=== PATIENT | female | born 1960 | race Caucasian/White ===

== ENCOUNTER 2020-08-05 16:58 | Outpatient (REF) | payer OTHER, SELFPAY | END 2020-08-05 16:59 | disposition home or self-care (01) | LOC: HO.LNP 16:58 | PROVIDERS: Visit Provider Nurse Practitioner Family | DX: Z20.828 Contact with and (suspected) exposure to other viral communicable diseases (principal); J02.8 Acute pharyngitis due to other specified organisms; B97.89 Other viral agents as the cause of diseases classified elsewhere | CPT/HCPCS: U0003 ==

== ENCOUNTER 2020-09-06 08:58 | Outpatient (REF) | payer OTHER, SELFPAY | END 2020-09-06 08:59 | disposition home or self-care (01) | LOC: HO.LAB 08:58 | PROVIDERS: Visit Provider Nurse Practitioner Family | DX: Z20.828 Contact with and (suspected) exposure to other viral communicable diseases (principal) | CPT/HCPCS: U0003 ==

== ENCOUNTER 2020-09-06 09:10 | Outpatient (REF) | payer OTHER, SELFPAY ==
--- NOTE | 2020-09-06 09:40 | XR_ITS ---
EXAMINATION: XR CHEST CLINICAL INFORMATION: Maxillary sinusitis COMPARISON: 05/18/2019 TECHNIQUE: 2 views of the chest were obtained. FINDINGS: No significant abnormality is noted involving the heart, lungs, mediastinum. Redemonstrated is normal variant pectus excavatum.. Mild thoracic spine degeneration. XR/XR chest 2V IMPRESSION: No acute process seen.
== END 2020-09-06 09:11 | disposition home or self-care (01) ==
LOC: HO.HMGCX 09:10
PROVIDERS: PCP Internal Medicine; Visit Provider Nurse Practitioner Family
DX: J01.00 Acute maxillary sinusitis, unspecified (principal); Z20.828 Contact with and (suspected) exposure to other viral communicable diseases
CPT/HCPCS: 71046

== ENCOUNTER 2020-09-13 05:51 | Inpatient (IN) | payer OTHER, SELFPAY ==
[2020-09-13] VITALS (7 sets, daily range): BP systolic 112–130; BP diastolic 72–86; PULSE 91–107; RESP 18–22; TEMP 37.4–37.7; O2SAT 92–97; BMI 25.1
--- NOTE | 2020-09-13 05:59 | ECG_ITS ---
Test Reason : SOB Blood Pressure : / mmHG Vent. Rate : 098 BPM Atrial Rate : 098 BPM P-R Int : 146 ms QRS Dur : 074 ms QT Int : 328 ms P-R-T Axes : 070 042 041 degrees QTc Int : 418 ms Normal sinus rhythm Normal ECG When compared with ECG of 18-MAY-2019 16:55, No significant change was found Referred By: Carlton Ramirez Electronically Signed By:CAROL BEAVERS MD
--- NOTE | 2020-09-13 06:00 | XR_ITS ---
EXAMINATION: CHEST 1 VIEW CLINICAL INFORMATION: No evidence of positive activity. COMPARISON: 09/06/2020. TECHNIQUE: An AP view of the chest is provided. FINDINGS: The cardiac silhouette is not enlarged. The mediastinal and hilar contours are unremarkable. There are neither pleural effusions nor pneumothoraces. There is nonspecific streaky opacification overlying each lung base. The osseous structures are stable. XR/XR chest 1V IMPRESSION: Nonspecific streaky opacification overlying each lung base.
--- NOTE | 2020-09-13 06:14 | ED.SOB ---
HPI - SOB/Dyspnea General Chief Complaint: Weakness Stated Complaint: sob Time Seen by Provider: 09/13/20 05:59 Source: patient Mode of arrival: EMS Limitations: no limitations History of Present Illness HPI Narrative: Patient with no known lung conditions in the past was diagnosed with COVID on 09/06 chest x-ray done which was negative .,on Augmentin and prednisone tablets comes here for worsening or shortness of breath was saturating 88% at room air when EMS reached which improved to 94% on 2 L patient been feeling very weak and tired no loss of taste or smell sensation MD elicited complaint: shortness of breath and cough Onset (ago): day(s) Related Data Home Medications Medication Instructions Recorded Confirmed valacyclovir 1 gram tablet 1,000 mg PO TID 09/06/20 Previous Rx's Medication Instructions Recorded cetirizine 10 mg tablet 10 mg PO DAILY 30 Days #30 tab 08/05/20 amoxicillin 875 mg-potassium 1 tab PO BID 10 Days #20 tab 09/06/20 clavulanate 125 mg tablet prednisone 20 mg tablet 20 mg PO DAILY 9 Days #18 tab MDD 09/06/20 3 for 3days;2 for 3 days;1 3da Allergies Allergy/AdvReac Type Severity Reaction Status Date / Time sulfamethoxazole Allergy Intermediate HIVES Unverified 06/09/20 16:30 [From BACTRIM] trimethoprim [From BACTRIM] Allergy Intermediate HIVES Unverified 06/09/20 16:30 Sulfa (Sulfonamide Allergy Unknown rash Unverified 04/20/20 00:00 Antibiotics) Review of Systems Review of Systems: Constitutional : No Weight loss, No Fever, No Chills ENT/Mouth : No sore throat, No Rhinorrhea Eyes: No Eye Pain, No Swelling Cardiovascular : No Chest Pain, + Dyspnea on Exertion, + Orthopnea, No Edema, No Palpitations, + SOB Respiratory : Dry cough No Sputum Gastrointestinal : no Nausea, No Vomiting, No Diarrhea, No abdominal Pain, No Hematochezia, No Melena Genitourinary : No Dysuria, No Urinary Frequency Musculoskeletal : No joint pain, No Myalgias, No Joint Swelling Skin : No Skin Lesions, No rash Neuro : No Weakness, No Numbness, No Dizziness, No Headache Psych : No Anxiety/Panic, No Depression Heme/Lymph: No Bruising, No Lymphadenopathy Endocrine : No Polyuria, No Polydipsia All other systems reviewed and are negative Yes all other systems are reviewed and are negative PMFSH Past Medical History Medical History Detached retina, left Social History Social History Smoked in Last 30 Days: No Use of substances other than those prescribed or required for medical reasons: No Advance Directives: No Advance Directives Information Provided: No Physical Exam Vital Signs: Vital Signs: Last Vital Signs Temp 99.8 F 09/13/20 06:01 Pulse 97 09/13/20 06:01 Resp 20 09/13/20 06:01 BP 115/72 09/13/20 06:01 Pulse Ox 94 09/13/20 06:01 Body Mass Index 25.1 VITAL SIGNS: Reviewed. GENERAL: Well developed, well nourished, in mild acute distress. HEAD: Normocephalic/atraumatic, EYES: PERRLA No pallor/icterus noted OROPHARYNX: Oral mucosa moist no oral lesions NECK: Supple, no adenopathy LUNGS: Normal breath sounds. No adventitious sounds or accessory muscle use CARDIOVASCULAR: Regular rate and rhythm without noted murmurs, no JVD or lower extremity edema. ABDOMEN: Soft, non-tender, non-distended with normal bowel sounds. No rigidity. No guarding. No palpable masses or hernias noted MUSCULOSKELETAL: No tenderness, deformities, EXTREMITIES: No cyanosis or edema. SKIN: no rashes, ulcerations, jaundice, pallor, or petechiae NEUROLOGIC: Alert and oriented x 3. Strength and sensation to light touch were grossly intact normal speech Course Course Course Narrative: Patient's COVID infection with worsening of symptoms increased weakness and resting hypoxia to 88% at room air chest x-ray showed early changes in lower bases will admit pressure patient for oxygen therapy and supportive treatment MDM - SOB/Dyspnea Lab Data Result diagrams: 09/13/20 06:24 09/13/20 06:24 Labs: Lab Results 09/13/20 Range/Units 06:24 WBC 7.2 (4.8-10.8) X10*3/uL RBC 4.56 (4.20-5.50) X10*6/uL Hgb 14.3 (12.0-16.0) g/dl Hct 42.0 (37-47) % MCV 92.1 (80-98) fL MCH 31.4 (27.0-33.0) pg MCHC 34.0 (31.0-35.0) g/dl RDW 11.9 (11.0-16.0) % Plt Count 213 (160-400) X10*3/uL MPV 9.0 L (9.4-12.3) fL Immature Gran % (Auto) 0.7 H (0.0-0.4) % Neut % (Auto) 71.4 (45-73) % Lymph % (Auto) 22.8 (20-40) % [place] % (Auto) 5.0 (2-11) % Eos % (Auto) 0.0 (0-4) % Baso % (Auto) 0.1 (0-2) % Lymph # (Auto) 1.6 (1.2-4.9) X10*3/uL [place] # (Auto) 0.4 (0.1-1.2) X10*3/uL Eos # (Auto) 0.0 (0.0-0.4) X10*3/uL Baso # (Auto) 0.0 (0.0-0.2) X10*3/uL Abs Immat Gran (auto) 0.05 H (0.00-0.03) X10*3/uL Absolute Neuts (auto) 5.1 (2.0-8.3) X10*3/uL Absolute Nucleated RBC 0.000 (0.0-0.012) X10*3/uL Nucleated RBC % (auto) 0.0 (0.0-0.2) /100WBC Discharge Plan Discharge Prescriptions: No Action cetirizine [Zyrtec] 10 mg tablet 10 mg PO DAILY 30 Days Qty: 30 RF: 0 valacyclovir 1 gram tablet 1,000 mg PO TID RF: 0 amoxicillin-pot clavulanate [Augmentin] 875-125 mg tablet 1 tab PO BID 10 Days Qty: 20 RF: 0 prednisone 20 mg tablet 20 mg PO DAILY MDD 3 for 3days;2 for 3 days;1 3da 9 Days Qty: 18 RF: 0
[2020-09-13 06:37] LABS: MANUAL DIFF FLAG NO
[2020-09-13 06:46] LABS: Basophils Percent Auto 0.1 % (0-2); Hemoglobin 14.3 g/dl (12.0-16.0); Imm Gran Abs Auto 0.05 X10*3/uL (0.00-0.03); Imm Gran Pct Auto 0.7 % (0.0-0.4); Lymphocytes Absolute Auto 1.6 X10*3/uL (1.2-4.9); Lymphocytes Percent Auto 22.8 % (20-40); Mean Corpuscular Hemoglobin 31.4 pg (27.0-33.0); Mean Corpuscular Volume 92.1 fL (80-98); Monocytes Absolute Auto 0.4 X10*3/uL (0.1-1.2); Neutrophils Absolute Auto 5.1 X10*3/uL (2.0-8.3); Neutrophils Percent Auto 71.4 % (45-73); Platelet Count 213 X10*3/uL (160-400); Red Blood Count 4.56 X10*6/uL (4.20-5.50); Red Cell Distribution Width 11.9 % (11.0-16.0); White Blood Count 7.2 X10*3/uL (4.8-10.8)
[2020-09-13] MEDS: dexAMETHasone sod phosphate 4 MG/ML VIAL IVPUSH (06:49)
[2020-09-13] MEDS: cefTRIAXone sodium 1 GM in 0.9 % Sodium Chloride 50 ML IV (06:50)
[2020-09-13 06:59] LABS: D Dimer 236 NG/ML
[2020-09-13 07:03] LABS: Lactic Acid 1.1 mmol/L (0.5-2.0)
--- NOTE | 2020-09-13 07:05 | PC.NURSE ---
Report received from Feliz BOBBY, Pt states she is comfortable at this time, no complaints. Respirations even/unlabored bilaterally. Verbalizes understanding of plan to admit to hospital. Will continue to monitor.
[2020-09-13 07:06] LABS: Anion Gap 10 (12-20); Blood Urea Nitrogen 8 mg/dL (9-16); Carbon Dioxide 31 mmol/L (22-29); Chloride 100 mmol/L (96-108); Creatinine Clr Calc Pharmacy 79.4; Estimated Glomerular Filt Rate > 60; Glucose Random 95 mg/dL (60-115); Lactate Dehydrogenase 237 U/L (122-220); Potassium 4.2 mmol/l (3.3-5.1); Sodium 137 mmol/L (135-145)
[2020-09-13 07:07] LABS: Alanine Aminotransferase 22 U/L (0-31); Alkaline Phosphatase 57 U/L (39-117); Aspartate Amino Transferase 26 U/L (5-31); Bilirubin Direct 0.2 mg/dL (0.0-0.5); Bilirubin Total 0.6 mg/dL (0.0-1.0); Total Protein 6.9 g/dL (6.5-8.0)
[2020-09-13 07:13] LABS: Troponin-I High Sensitivity < 3.5 ng/L (<3.5-17.0)
[2020-09-13 07:27] LABS: Ferritin 480 ng/mL (10-250)
--- NOTE | 2020-09-13 10:06 | PM.IMHP ---
History of Present Illness Date of Service: 09/13/20 <Janee Roper NP - Last Filed: 09/13/20 13:22> Chief Complaint: Low oxygen saturation <Janee Roper NP - Last Filed: 09/13/20 13:22> 59 year old women presenting from home with low oxygen saturation. She tested positive for coronavirus on the and has been treated at home with prednisone and Augmentin. She noted that her oxygen has been going down to the 80's the last day or so. She reported low grade fever, nausea and weakness. She lives with her son who has tested negative for coronavirus and believes that she may have been exposed at work. In the ED, she was given Dexamethasone, doxycycline and Rocephin. Her oxygen saturations have improved with oxygen therapy. <Janee Roper NP - Last Filed: 09/13/20 13:22> Review of Systems Review of Systems: Denies any recent fever chills or decrease in appetite respiratory Dry cough with low oxygen saturation cardiovascular is adjustment of any PND or edema gastrointestinal denies any dysphagia abdominal pain nausea vomiting or diarrhea genitourinary denies any dysuria frequency or hematuria musculoskeletal denies any joint pain or swelling neuropsych denies any weakness or seizures all other systems reviewed are negative <Janee Roper NP - Last Filed: 09/13/20 13:22> [facility], [facility] Medical History: Medical History Detached retina, left <Janee Roper NP - Last Filed: 09/13/20 13:22> Social History: Social History Household Members: None Housing: Apartment Smoking Status: Never smoker Second Hand Smoke Exposure: No service: No Current occupational status: employed <Janee Roper NP - Last Filed: 09/13/20 13:22> Meds Allergies/Adverse reactions: Allergies Allergy/AdvReac Type Severity Reaction Status Date / Time sulfamethoxazole Allergy Intermediate HIVES Verified 09/13/20 18:04 [From BACTRIM] trimethoprim [From BACTRIM] Allergy Intermediate HIVES Verified 09/13/20 20:41 Sulfa (Sulfonamide Allergy Unknown rash Verified 09/13/20 18:05 Antibiotics) <Janee Roper NP - Last Filed: 12/22/20 13:22> Home medications: Home Medications Medication Instructions Recorded Confirmed Type prednisolone acetate 1 drp OPHTHALMIC-LEFT BID 09/13/20 09/13/20 History <Janee Roper NP - Last Filed: 09/13/20 13:22> Physical Exam Vital Signs and Narrative: Vital Signs: Last Vital Signs Temp 99.8 F 09/13/20 06:01 Pulse 96 09/13/20 08:00 Resp 18 09/13/20 08:00 BP 115/72 09/13/20 06:01 Pulse Ox 95 09/13/20 08:00 Body Mass Index 25.1 <Janee Roper NP - Last Filed: 09/13/20 13:22> Appearing in no acute distress head is normocephalic atraumatic eyes pupils are PERRLA sclera is anicteric mouth throat mucous membranes are intact and moist neck is supple no lymphadenopathy, no JVD noted lung normal expansion heart regular rate rhythm positive bowel sounds, abdomen is soft, nontender neuro patient is alert x3, no focal deficits <Janee Roper NP - Last Filed: 09/13/20 13:22> Results Labs CBC and Chem 7: : 09/14/20 05:50 09/14/20 05:50 <Janee Roper NP - Last Filed: 09/13/20 13:22> Labs: Laboratory Results - last 24 hr 09/13/20 09/13/20 09/13/20 06:24 06:24 06:24 MCV 92.1 MCH 31.4 MCHC 34.0 RDW 11.9 Plt Count 213 MPV 9.0 L Immature Gran % (Auto) 0.7 H Neut % (Auto) 71.4 Lymph % (Auto) 22.8 [place] % (Auto) 5.0 Eos % (Auto) 0.0 Baso % (Auto) 0.1 Lymph # (Auto) 1.6 [place] # (Auto) 0.4 Eos # (Auto) 0.0 Baso # (Auto) 0.0 Abs Immat Gran (auto) 0.05 H Absolute Neuts (auto) 5.1 Absolute Nucleated RBC 0.000 Nucleated RBC % (auto) 0.0 D-Dimer 236 Anion Gap 10 L Estim Creat Clear Calc 79.4 Estimated GFR > 60 Random Glucose 95 Lactic Acid Calcium 9.0 Ferritin 480 H Total Bilirubin Direct Bilirubin AST ALT Alkaline Phosphatase Lactate Dehydrogenase 237 H Troponin I High Sens Total Protein Albumin 09/13/20 09/13/20 09/13/20 06:24 06:24 06:24 MCV MCH MCHC RDW Plt Count MPV Immature Gran % (Auto) Neut % (Auto) Lymph % (Auto) [place] % (Auto) Eos % (Auto) Baso % (Auto) Lymph # (Auto) [place] # (Auto) Eos # (Auto) Baso # (Auto) Abs Immat Gran (auto) Absolute Neuts (auto) Absolute Nucleated RBC Nucleated RBC % (auto) D-Dimer Anion Gap Estim Creat Clear Calc Estimated GFR Random Glucose Lactic Acid 1.1 Calcium Ferritin Total Bilirubin 0.6 Direct Bilirubin 0.2 AST 26 ALT 22 Alkaline Phosphatase 57 Lactate Dehydrogenase Troponin I High Sens < 3.5 Total Protein 6.9 Albumin 4.0 <Janee Roper NP - Last Filed: 09/13/20 13:22> Imaging Radiologist's Impressions: Impressions Chest X-Ray 09/13/20 06:00 IMPRESSION: Nonspecific streaky opacification overlying each lung base. <Janee Roper NP - Last Filed: 09/13/20 13:22> Assessment and Plan (1) Hypoxia: Status: Acute <Janee Roper NP - Last Filed: 09/13/20 13:22> 59 year old women admitted with acute respiratory failure secondary to Covid-19. Hypoxia has improved with oxygen. Acute hypoxic respiratory failure. Resolved after oxygen therapy. Continue supplemental oxygen. COVID 19. Continue steroids, Hold off on antibiotics as xray is not showing consolidation. ID consult. DVT prophylaxis with Lovenox. Discussed with Dr. Love Full code. <Janee Roper NP - Last Filed: 09/13/20 13:22>
[2020-09-13] MEDS: 0.9 % Sodium Chloride Flush 3 ML SYRINGE IVFLUSH (20:44)
[2020-09-14] VITALS (8 sets, daily range): BP systolic 102–148; BP diastolic 55–88; PULSE 68–107; RESP 17–20; TEMP 36.3–38.3; O2SAT 90–98
[2020-09-14] MEDS: 0.9 % Sodium Chloride Flush 3 ML SYRINGE IVFLUSH ×3 (00:11→16:38)
[2020-09-14] MEDS: Acetaminophen 325 MG TABLET 650 MG PO ×2 (00:59→23:04)
[2020-09-14 06:33] LABS: MANUAL DIFF FLAG NO
[2020-09-14 06:51] LABS: Basophils Percent Auto 0.1 % (0-2); Hematocrit 41.2 % (37-47); Hemoglobin 13.9 g/dl (12.0-16.0); Imm Gran Abs Auto 0.03 X10*3/uL (0.00-0.03); Imm Gran Pct Auto 0.4 % (0.0-0.4); Lymphocytes Absolute Auto 1.8 X10*3/uL (1.2-4.9); Lymphocytes Percent Auto 22.4 % (20-40); Mean Corpuscular HGB Conc 33.7 g/dl (31.0-35.0); Mean Corpuscular Hemoglobin 30.8 pg (27.0-33.0); Mean Corpuscular Volume 91.4 fL (80-98); Mean Platelet Volume 9.2 fL (9.4-12.3); Monocytes Absolute Auto 0.5 X10*3/uL (0.1-1.2); Monocytes Percent Auto 6.1 % (2-11); Neutrophils Absolute Auto 5.7 X10*3/uL (2.0-8.3); Platelet Count 213 X10*3/uL (160-400); Red Blood Count 4.51 X10*6/uL (4.20-5.50); Red Cell Distribution Width 11.8 % (11.0-16.0)
[2020-09-14] MEDS: predniSONE 20 MG TABLET 40 MG PO (07:47)
[2020-09-14 07:52] LABS: Anion Gap 13 (12-20); Blood Urea Nitrogen 10 mg/dL (9-16); Calcium 8.9 mg/dL (8.4-10.2); Carbon Dioxide 29 mmol/L (22-29); Chloride 98 mmol/L (96-108); Creatinine Clr Calc Pharmacy 77.4; Estimated Glomerular Filt Rate > 60; Glucose Random 90 mg/dL (60-115); Sodium 135 mmol/L (135-145)
[2020-09-14 08:08] LABS: Potassium 5.3 mmol/l (3.3-5.1)
--- NOTE | 2020-09-14 10:56 | HO.PM.IMPN ---
Subjective Subjective Date of Service: 09/14/20 Interval History: Seen in f/u for covid related hypoxoia ROS: feels better, no fever Physical Exam Vital Signs: Vital Signs: Last Vital Signs Temp 97.9 F 09/14/20 08:00 Pulse 99 09/14/20 08:00 Resp 18 09/14/20 08:00 BP 107/58 L 09/14/20 08:00 Pulse Ox 93 09/14/20 08:00 Body Mass Index 25.1 General: AO X 3, no acute distress Resp: normal resp effort CVS: S1,S2,RRR GI: +BS, NT, no distention Skin: No rash Neuro: motor grossly intact Psych: appropriate affect Objective Data Current Medications Generic Name Dose Route Start Last Admin Trade Name Freq PRN Reason Stop Dose Admin Acetaminophen 650 mg 09/13/20 16:56 09/14/20 00:59 Acetaminophen 325 Mg Tablet PO 650 mg Q6H PRN Administration Pain, Mild (Pain Scale 1-3) Ondansetron HCl 4 mg 09/13/20 16:56 Ondansetron Hcl 4 Mg/2 Ml Vial IVPUSH Q8H PRN Nausea and Vomiting Pharmacy Consult 1 each 09/13/20 06:51 Consult Rx Perform Med Rec MISCELLANE ONCE PRN Consult order Prednisone 40 mg 09/14/20 09:00 09/14/20 07:47 Prednisone 20 Mg Tablet PO 40 mg DAILY KATIE Administration Sodium Chloride 3 ml 09/13/20 16:56 09/14/20 07:49 0.9 % Sodium Chloride Flush 3 Ml Syringe IVFLUSH 3 ml QSHIFT KATIE Administration Labs CBC & Chem 7: 09/14/20 05:50 09/14/20 05:50 Microbiology Microbiology Results: Microbiology 09/13/20 06:29 Blood - Venous Blood Culture - Preliminary No growth after 24 hours. 09/13/20 06:24 Blood - Venous Blood Culture - Preliminary No growth after 24 hours. Assessment and Plan (1) Hypoxia: Status: Acute Assessment and Plan: 59 year old women admitted with acute respiratory failure secondary to Covid-19. Hypoxia has improved with oxygen. Covid hypoxia--improved with O2 continue Dexameth -no indication for plasma or remdesevir or antibiotics -wean off O2 Home if O2 is good on room air
--- NOTE | 2020-09-14 11:04 | PM.EVENT ---
Event Note Date of Service: 09/13/20 Event Note: Addendum to H and P by Mid-level Provider I saw and examined the patient and participated in the mosley portion of the E/M service. I agree with the history and exam as documented by CONSTRUCTION TECH. Patient likely has covid 19 with mild hypoxia, Will admit for oxygen, steroid. Otherwise, I agree with assessment and plan as outlined in the H and P.
--- NOTE | 2020-09-14 11:07 | MHC.CM.PN ---
CM spoke with patient by phone r/t COVID + who reports she is independent and her son lives with her. States she has a HCP/son Dieter [phone], Brain [phone], copy requested. Discussed discharge plan, home no services. Son will provide transportation. CM will continue to follow patient for discharge needs.
--- NOTE | 2020-09-14 12:53 | W.PM.IDCN ---
History of Present Illness Data of Consult Service Date: 09/14/20 Requesting physician: Rasheed Love Primary Care Provider: Unknown Physician HPI Reason for consult: COVID She presents to hospital with worsening subjective shortness of breath She was diagnosed with COVID after 2 days of symptoms on 09/06 She now is on room air and was on 2 liters earlier Review of Systems Review of Systems: Yes all other systems are reviewed and are negative PMFSH Past Medical History Medical History Detached retina, left Social History Social History Household Members: None Housing: Apartment Do you presently have visiting nurse or other home services: No Smoking Status: Never smoker Smoked in Last 30 Days: No Second Hand Smoke Exposure: No Use of substances other than those prescribed or required for medical reasons: No Currently Displaying Signs/Symptoms of Drug Intoxication Withdrawal: No Have you been hit, kicked, punched, or otherwise hurt by someone within the past year? If so, by whom?: No Do you feel safe in your current relationship?: No Is there a partner from a previous relationship who is making you feel unsafe now?: No Are you made to feel afraid or neglected: No Advance Directives: No Advance Directives Information Provided: No Advance Directives on File: No Do you have thoughts of harming others: None Do you have a plan to hurt others: No Plan Recently lost weight without trying: No service: No Current occupational status: employed Meds Allergies Allergy/AdvReac Type Severity Reaction Status Date / Time sulfamethoxazole Allergy Intermediate HIVES Verified 09/13/20 18:04 [From BACTRIM] trimethoprim [From BACTRIM] Allergy Intermediate HIVES Verified 09/13/20 20:41 Sulfa (Sulfonamide Allergy Unknown rash Verified 09/13/20 18:05 Antibiotics) Home Medications Medication Instructions Recorded Confirmed Type prednisolone acetate 1 drp OPHTHALMIC-LEFT BID 09/13/20 09/13/20 History Physical Exam Vital Signs: Vital Signs: Last Vital Signs Temp 97.3 F 09/14/20 11:14 Pulse 107 H 09/14/20 11:14 Resp 18 09/14/20 11:14 BP 120/88 09/14/20 11:14 Pulse Ox 92 09/14/20 11:14 Body Mass Index 25.1 Const: General: cooperative HENMT: Head: Yes normal to inspection Resp: Effort & Inspection: normal respiratory effort Cardio: Rate: regular rate Rhythm: regular rhythm GI: Inspection: Yes normal to inspection Skin: General skin exam: no rashes or lesions noted Extrem: General: Yes normal to inspection Assessment and Plan (1) COVID-19: Problem details: She is 10 days minimum symptoms She is doing better Status: Acute No Remdesivir or Dexamethasone as over 10 days and room air No antibiotics Results Labs CBC & Chem 7: 09/14/20 05:50 09/14/20 05:50 Labs: Short CBC 09/14/20 Range/Units 05:50 WBC 8.0 (4.8-10.8) X10*3/uL Hgb 13.9 (12.0-16.0) g/dl Hct 41.2 (37-47) % Plt Count 213 (160-400) X10*3/uL BMP 09/14/20 05:50 Sodium 135 Potassium 5.3 H D Chloride 98 Carbon Dioxide 29 BUN 10 Creatinine 0.78 Calcium 8.9 Microbiology Microbiology Results: Microbiology 09/13/20 06:29 Blood - Venous Blood Culture - Preliminary No growth after 24 hours. 09/13/20 06:24 Blood - Venous Blood Culture - Preliminary No growth after 24 hours.
[2020-09-15] VITALS (7 sets, daily range): BP systolic 102–138; BP diastolic 64–70; PULSE 89–104; RESP 18–20; TEMP 36.6–37.4; O2SAT 88–93
[2020-09-15] MEDS: 0.9 % Sodium Chloride Flush 3 ML SYRINGE IVFLUSH ×3 (00:30→15:36)
[2020-09-15] MEDS: predniSONE 20 MG TABLET 40 MG PO (07:43)
--- NOTE | 2020-09-15 09:39 | P.CDIC_ITS ---
CDI Concurrent Query Service Date: 09/15/20 Documentation Clarification: Please clarify if you are treating a proba ble/suspected/likely or confirmed: LABS: Hyperkalemia Please specify if known Provider Response: Other Other Diagnosis: hyperkalemia PLEASE DO NOT DELETE/MODIFY EXISTING CONTENT Additional information is needed in order to code to the highest accuracy and appropriate Severity of Illness (SOI). Please clarify the information noted below in your progress notes and discharge summary. Risk Factors/Clinical Indicators/Treatments LAB FINDING: potassium 5.3 H CDS: Rhoda Salguero CCS, CDIS Contact Number: [phone] Please Review the information above and exercise your independent professional judgment in responding to the query. If you concur, pleas document in the PROGRESS NOTES and DISCHARGE SUMMARY. If you do not agree with the query, please document in the query above. THIS QUERY IS PART OF THE PERMANENT MEDICAL RECORD
--- NOTE | 2020-09-15 12:12 | MHC.CM.PN ---
Patient will be discharged home today no services. Judson Garcias [phone] will provide transport.
[2020-09-15] MEDS: Multivitamin TABLET 1 TAB PO (13:09)
[2020-09-15] MEDS: Throat Lozenge, Medicated LOZENGE 1 LOZENGE MUCOUS MEM (13:09)
--- NOTE | 2020-09-15 13:12 | PM.DS ---
DS: Providers Provider Date of admission: 09/13/20 10:01 Primary care physician: Unknown Physician Consults: 09/13/20 16:56 Consult to Infectious Diseases Routine Consulting Provider: Yanely Asher Reason for consultation: hypoxia, covid Has provider been notified: No DS: Diagnosis Discharge Diagnosis (1) COVID-19: Status: Acute Problem details: She is 10 days minimum symptoms She is doing better DS: Medications Discharge Medications Home Medications: Home Medications Medication Instructions Recorded Confirmed prednisolone acetate 1 drp OPHTHALMIC-LEFT BID 09/13/20 09/13/20 Previous Rx's Medication Instructions Recorded amoxicillin 875 mg-potassium 1 tab PO BID 10 Days #20 tab 09/06/20 clavulanate 125 mg tablet prednisone 40 mg PO DAILY #10 tab 09/15/20 DS: Summary Time Spent with Patient Time attestation: Total time spent providing and/or coordinating discharge services: Physical Exam Vital Signs: Vital Signs: Last Vital Signs Temp 99 F 09/15/20 07:38 Pulse 96 09/15/20 07:38 Resp 19 09/15/20 07:38 BP 112/67 09/15/20 07:38 Pulse Ox 93 09/15/20 07:38 Body Mass Index 25.1 DS: Data Data Completed and Pending Labs on day of discharge: 09/13/20 05:59 ECG 12 lead EKG Stat EKG Documentation DIRECTED 09/13/20 06:00 XR chest 1V Stat 09/13/20 06:01 Doxycycline Hyclate [Vibramycin] 100 mg PO ONCE ONE cefTRIAXone sodium [Rocephin] 1 gm 0.9 % Sodium Chloride [Ns] 50 ml IV ONCE dexAMETHasone sod phosphate [Decadron] 4 mg IVPUSH ONCE ONE 09/13/20 06:24 Basic Metabolic Panel Stat Complete Blood Count Auto Diff Stat D Dimer Stat Ferritin Stat Lactate Dehydrogenase Stat Lactic Acid Stat Liver Panel Stat Troponin-I High Sensitivity Stat 09/13/20 06:40 cefTRIAXone sodium [Rocephin] 1 gm .ROUTE .STK-MED ONE 09/13/20 09:59 Transfer Order Routine 09/13/20 12:31 ED Diet NOW 09/14/20 05:50 Basic Metabolic Panel DAILY@0600 Complete Blood Count Auto Diff DAILY@0600 Laboratory Last Values WBC 8.0 X10*3/uL (4.8-10.8) 09/14/20 05:50 RBC 4.51 X10*6/uL (4.20-5.50) 09/14/20 05:50 Hgb 13.9 g/dl (12.0-16.0) 09/14/20 05:50 Hct 41.2 % (37-47) 09/14/20 05:50 MCV 91.4 fL (80-98) 09/14/20 05:50 MCH 30.8 pg (27.0-33.0) 09/14/20 05:50 MCHC 33.7 g/dl (31.0-35.0) 09/14/20 05:50 RDW 11.8 % (11.0-16.0) 09/14/20 05:50 Plt Count 213 X10*3/uL (160-400) 09/14/20 05:50 MPV 9.2 fL (9.4-12.3) L 09/14/20 05:50 Immature Gran % (Auto) 0.4 % (0.0-0.4) 09/14/20 05:50 Neut % (Auto) 71.0 % (45-73) 09/14/20 05:50 Lymph % (Auto) 22.4 % (20-40) 09/14/20 05:50 [place] % (Auto) 6.1 % (2-11) 09/14/20 05:50 Eos % (Auto) 0.0 % (0-4) 09/14/20 05:50 Baso % (Auto) 0.1 % (0-2) 09/14/20 05:50 Lymph # (Auto) 1.8 X10*3/uL (1.2-4.9) 09/14/20 05:50 [place] # (Auto) 0.5 X10*3/uL (0.1-1.2) 09/14/20 05:50 Eos # (Auto) 0.0 X10*3/uL (0.0-0.4) 09/14/20 05:50 Baso # (Auto) 0.0 X10*3/uL (0.0-0.2) 09/14/20 05:50 Abs Immat Gran (auto) 0.03 X10*3/uL (0.00-0.03) 09/14/20 05:50 Absolute Neuts (auto) 5.7 X10*3/uL (2.0-8.3) 09/14/20 05:50 Absolute Nucleated RBC 0.000 X10*3/uL (0.0-0.012) 09/14/20 05:50 Nucleated RBC % (auto) 0.0 /100WBC (0.0-0.2) 09/14/20 05:50 D-Dimer 236 NG/ML 09/13/20 06:24 Sodium 135 mmol/L (135-145) 09/14/20 05:50 Potassium 5.3 mmol/l (3.3-5.1) H D 09/14/20 05:50 Chloride 98 mmol/L (96-108) 09/14/20 05:50 Carbon Dioxide 29 mmol/L (22-29) 09/14/20 05:50 Anion Gap 13 (-20) 09/14/20 05:50 BUN 10 mg/dL (9-16) 09/14/20 05:50 Creatinine 0.78 mg/dL (0.5-1.4) 09/14/20 05:50 Estim Creat Clear Calc 77.4 09/14/20 05:50 Estimated GFR > 60 09/14/20 05:50 Random Glucose 90 mg/dL (60-115) 09/14/20 05:50 Lactic Acid 1.1 mmol/L (0.5-2.0) 09/13/20 06:24 Calcium 8.9 mg/dL (8.4-10.2) 09/14/20 05:50 Ferritin 480 ng/mL (10-250) H 09/13/20 06:24 Total Bilirubin 0.6 mg/dL (0.0-1.0) 09/13/20 06:24 Direct Bilirubin 0.2 mg/dL (0.0-0.5) 09/13/20 06:24 AST 26 U/L (5-31) 09/13/20 06:24 ALT 22 U/L (0-31) 09/13/20 06:24 Alkaline Phosphatase 57 U/L (39-117) 09/13/20 06:24 Lactate Dehydrogenase 237 U/L (122-220) H 09/13/20 06:24 Troponin I High Sens < 3.5 ng/L (<3.5-17.0) 09/13/20 06:24 Total Protein 6.9 g/dL (6.5-8.0) 09/13/20 06:24 Albumin 4.0 g/dL (3.5-5.0) 09/13/20 06:24 Preliminary micro results at discharge 09/13/20 06:29 Blood Culture - Preliminary Blood - Venous No growth after 48 hours. 09/13/20 06:24 Blood Culture - Preliminary Blood - Venous No growth after 48 hours. Discharge Plan Discharge Anticipated Discharge Date/Time: 09/15/20 11:51 Patient Disposition: Home, Self-Care Referrals: Physician,Unknown [Primary Care Provider] - Discharge Medications: New prednisone 20 mg Tablet 40 mg PO DAILY Qty: 10 RF: 0 Continued prednisolone acetate 1 % drops,suspension 1 drp ophthalmic-Left BID RF: 0 amoxicillin-pot clavulanate [Augmentin] 875-125 mg tablet 1 tab PO BID 10 Days Qty: 20 RF: 0 Discontinued prednisone 20 mg tablet 20 mg PO DAILY MDD 3 for 3days;2 for 3 days;1 3da 9 Days Qty: 18 RF: 0 Discharge Orders: Discharge Order (Routine); Ordered 09/15/20 Ordered By: Jimbo Meyer Diet: advance to usual diet Activity on Discharge: As tolerated Visit Report Forms: Patient Portal Discharge page Care Plan Goals: treat covid Health Concerns: covid Plan of Treatment: see above
[2020-09-15] MEDS: Acetaminophen 325 MG TABLET 650 MG PO (15:37)
--- NOTE | 2020-09-15 15:42 | HO.PM.IMPN ---
Subjective Subjective Date of Service: 09/15/20 Interval History: patient seen and examined at bedside patient is reporting weakness and cough ROS: feels better, no fever Review of Systems Denies any recent fever chills or decrease in appetite respiratory Dry cough with low oxygen saturation cardiovascular is adjustment of any PND or edema gastrointestinal denies any dysphagia abdominal pain nausea vomiting or diarrhea genitourinary denies any dysuria frequency or hematuria musculoskeletal denies any joint pain or swelling neuropsych denies any weakness or seizures all other systems reviewed are negative Physical Exam Vital Signs: Vital Signs: Last Vital Signs Temp 99.3 F 09/15/20 15:05 Pulse 89 09/15/20 15:05 Resp 20 09/15/20 15:05 BP 102/68 09/15/20 15:05 Pulse Ox 88 L 09/15/20 15:05 Body Mass Index 25.1 Const: General: cooperative HENMT: Head: Yes normal to inspection Resp: Effort & Inspection: normal respiratory effort Cardio: Rate: regular rate Rhythm: regular rhythm GI: Inspection: Yes normal to inspection Skin: General skin exam: no rashes or lesions noted Extrem: General: Yes normal to inspection Objective Data Current Medications Generic Name Dose Route Start Last Admin Trade Name Freq PRN Reason Stop Dose Admin Acetaminophen 650 mg 09/13/20 16:56 09/15/20 15:37 Acetaminophen 325 Mg Tablet PO 650 mg Q6H PRN Administration Pain, Mild (Pain Scale 1-3) Benzocaine 1 lozenge 09/15/20 12:23 09/15/20 13:09 Throat Lozenge, Medicated Lozenge MUCOUS MEM 1 lozenge Q2H PRN Administration Sore Throat Multivitamins/Vitamin C 1 tab 09/15/20 12:30 09/15/20 13:09 Multivitamin Tablet PO 1 tab DAILY KATIE Administration Ondansetron HCl 4 mg 09/13/20 16:56 Ondansetron Hcl 4 Mg/2 Ml Vial IVPUSH Q8H PRN Nausea and Vomiting Pharmacy Consult 1 each 09/13/20 06:51 Consult Rx Perform Med Rec MISCELLANE ONCE PRN Consult order Prednisone 40 mg 09/14/20 09:00 09/15/20 07:43 Prednisone 20 Mg Tablet PO 40 mg DAILY KATIE Administration Sodium Chloride 3 ml 09/13/20 16:56 09/15/20 15:36 0.9 % Sodium Chloride Flush 3 Ml Syringe IVFLUSH 3 ml QSHIFT KATIE Administration Labs CBC & Chem 7: 09/14/20 05:50 09/14/20 05:50 Microbiology Microbiology Results: Microbiology 09/13/20 06:29 Blood - Venous Blood Culture - Preliminary No growth after 48 hours. 09/13/20 06:24 Blood - Venous Blood Culture - Preliminary No growth after 48 hours. Assessment and Plan (1) COVID-19: Status: Acute Assessment and Plan: 59 year old women admitted with acute respiratory failure secondary to Covid-19. Hypoxia has improved with oxygen. Covid pneumonia and acute hypoxic respiratory failure continue Dexameth -no indication for plasma or remdesevir or antibiotics -wean off O2 supportive management patient desaturating while walking DVT prophylaxis Lovenox
[2020-09-15] MEDS: Enoxaparin Sodium 40 MG/0.4 ML SYRINGE SUBCUT (15:50)
[2020-09-16] VITALS: BP 121/70; PULSE 84; RESP 16; TEMP 37.2; O2SAT 96
[2020-09-16] MEDS: 0.9 % Sodium Chloride Flush 3 ML SYRINGE IVFLUSH ×3 (00:01→15:59)
[2020-09-16 04:00] VITALS: BP 114/62; PULSE 88; RESP 18; TEMP 37.1; O2SAT 91
[2020-09-16] MEDS: predniSONE 20 MG TABLET 40 MG PO (07:27)
[2020-09-16] MEDS: Multivitamin TABLET 1 TAB PO (07:27)
[2020-09-16 08:00] VITALS: BP 112/65; PULSE 98; RESP 18; TEMP 37.1; O2SAT 92
[2020-09-16 12:00] VITALS: BP 106/75; PULSE 96; RESP 20; TEMP 36.8; O2SAT 92
--- NOTE | 2020-09-16 14:02 | MHC.CM.PN ---
[facility] NO SERVICES SON MARY WILL TRANSPORT.
--- NOTE | 2020-09-16 14:55 | HO.PM.IMPN ---
Subjective Subjective Date of Service: 09/16/20 Interval History: patient seen and examined at bedside patient is reporting weakness and coughand dyspnea Review of Systems Denies any recent fever chills or decrease in appetite respiratory Dry cough with low oxygen saturation cardiovascular is adjustment of any PND or edema gastrointestinal denies any dysphagia abdominal pain nausea vomiting or diarrhea genitourinary denies any dysuria frequency or hematuria musculoskeletal denies any joint pain or swelling neuropsych denies any weakness or seizures all other systems reviewed are negative Physical Exam Vital Signs: Vital Signs: Last Vital Signs Temp 98.2 F 09/16/20 12:00 Pulse 96 09/16/20 12:00 Resp 20 09/16/20 12:00 BP 106/75 09/16/20 12:00 Pulse Ox 92 09/16/20 12:00 Body Mass Index 25.1 Const: General: cooperative HENMT: Head: Yes normal to inspection Resp: Effort & Inspection: normal respiratory effort Cardio: Rate: regular rate Rhythm: regular rhythm GI: Inspection: Yes normal to inspection Skin: General skin exam: no rashes or lesions noted Extrem: General: Yes normal to inspection Objective Data Current Medications Generic Name Dose Route Start Last Admin Trade Name Freq PRN Reason Stop Dose Admin Acetaminophen 650 mg 09/13/20 16:56 09/15/20 15:37 Acetaminophen 325 Mg Tablet PO 650 mg Q6H PRN Administration Pain, Mild (Pain Scale 1-3) Ascorbic Acid 500 mg 09/16/20 21:00 Ascorbic Acid 500 Mg Tablet PO BID KATIE Benzocaine 1 lozenge 09/15/20 12:23 09/15/20 13:09 Throat Lozenge, Medicated Lozenge MUCOUS MEM 1 lozenge Q2H PRN Administration Sore Throat Enoxaparin Sodium 40 mg 09/15/20 16:00 09/15/20 15:50 Enoxaparin Sodium 40 Mg/0.4 Ml Syringe SUBCUT 40 mg Q24H KATIE Administration Multivitamins/Vitamin C 1 tab 09/15/20 12:30 09/16/20 07:27 Multivitamin Tablet PO 1 tab DAILY KATIE Administration Ondansetron HCl 4 mg 09/13/20 16:56 Ondansetron Hcl 4 Mg/2 Ml Vial IVPUSH Q8H PRN Nausea and Vomiting Pharmacy Consult 1 each 09/13/20 06:51 Consult Rx Perform Med Rec MISCELLANE ONCE PRN Consult order Prednisone 40 mg 09/14/20 09:00 09/16/20 07:27 Prednisone 20 Mg Tablet PO 40 mg DAILY KATIE Administration Sodium Chloride 3 ml 09/13/20 16:56 09/16/20 07:28 0.9 % Sodium Chloride Flush 3 Ml Syringe IVFLUSH 3 ml QSHIFT KATIE Administration Labs CBC & Chem 7: 09/14/20 05:50 09/14/20 05:50 Microbiology Microbiology Results: Microbiology 09/13/20 06:29 Blood - Venous Blood Culture - Preliminary No growth after 48 hours. 09/13/20 06:24 Blood - Venous Blood Culture - Preliminary No growth after 48 hours. Assessment and Plan (1) COVID-19: Status: Acute Assessment and Plan: 59 year old women admitted with acute respiratory failure secondary to Covid-19. . Covid pneumonia and acute hypoxic respiratory failure continue Dexameth -no indication for plasma or remdesevir or antibiotics continue supportive management patient was initially weaned off from oxygen, again became hypoxic and placed on oxygen patient will likely need home oxygen patient still reporting significant dyspnea while walking does not feel ready to be discharged today DVT prophylaxis Lovenox possible discharge in 1-2 days
[2020-09-16] MEDS: Enoxaparin Sodium 40 MG/0.4 ML SYRINGE SUBCUT (15:59)
[2020-09-16 16:00] VITALS: BP 114/64; PULSE 97; RESP 18; TEMP 37; O2SAT 90
[2020-09-16 21:08] VITALS: BP 112/69; PULSE 101; RESP 15; TEMP 36.9; O2SAT 92
[2020-09-16] MEDS: Ascorbic Acid 500 MG TABLET PO (21:50)
[2020-09-17] VITALS: BP 109/68; PULSE 84; RESP 18; TEMP 36.9; O2SAT 92
[2020-09-17] MEDS: 0.9 % Sodium Chloride Flush 3 ML SYRINGE IVFLUSH ×4 (00:40→21:10)
[2020-09-17 04:00] VITALS: BP 104/66; PULSE 95; RESP 18; TEMP 37.1; O2SAT 90
[2020-09-17 08:00] VITALS: BP 100/64; PULSE 98; RESP 18; TEMP 36.8; O2SAT 95
[2020-09-17] MEDS: predniSONE 20 MG TABLET 40 MG PO (08:07)
[2020-09-17] MEDS: Multivitamin TABLET 1 TAB PO (08:07)
[2020-09-17] MEDS: Ascorbic Acid 500 MG TABLET PO ×2 (08:07→20:59)
[2020-09-17 12:00] VITALS: BP 108/67; PULSE 93; RESP 18; TEMP 37.4; O2SAT 93
[2020-09-17] MEDS: Enoxaparin Sodium 40 MG/0.4 ML SYRINGE SUBCUT (15:20)
[2020-09-17 15:44] VITALS: BP 124/74; PULSE 88; RESP 20; TEMP 36.8; O2SAT 89
--- NOTE | 2020-09-17 18:13 | HO.PM.IMPN ---
Subjective Subjective Date of Service: 09/17/20 Interval History: Seen in f/u for covid related hypoxoia. off O2 and doing fine ROS: feels better, no fever or Sob Physical Exam Vital Signs: Vital Signs: Last Vital Signs Temp 98.2 F 09/17/20 15:44 Pulse 88 09/17/20 15:44 Resp 20 09/17/20 15:44 BP 124/74 09/17/20 15:44 Pulse Ox 89 L 09/17/20 15:44 Body Mass Index 25.1 Const: Other: General: AO X 3, no acute distress HEENT-norma ear exam with otoscope is normal Resp: CTA bilateral CVS: S1,S2,RRR GI: +BS, NT, no distention Skin: No rash Neuro: motor grossly intact Psych: appropriate affect Objective Data Current Medications Generic Name Dose Route Start Last Admin Trade Name Freq PRN Reason Stop Dose Admin Acetaminophen 650 mg 09/13/20 16:56 09/15/20 15:37 Acetaminophen 325 Mg Tablet PO 650 mg Q6H PRN Administration Pain, Mild (Pain Scale 1-3) Ascorbic Acid 500 mg 09/16/20 21:00 09/17/20 08:07 Ascorbic Acid 500 Mg Tablet PO 500 mg BID KATIE Administration Benzocaine 1 lozenge 09/15/20 12:23 09/15/20 13:09 Throat Lozenge, Medicated Lozenge MUCOUS MEM 1 lozenge Q2H PRN Administration Sore Throat Enoxaparin Sodium 40 mg 09/15/20 16:00 09/17/20 15:20 Enoxaparin Sodium 40 Mg/0.4 Ml Syringe SUBCUT 40 mg Q24H KATIE Administration Multivitamins/Vitamin C 1 tab 09/15/20 12:30 09/17/20 08:07 Multivitamin Tablet PO 1 tab DAILY KATIE Administration Ondansetron HCl 4 mg 09/13/20 16:56 Ondansetron Hcl 4 Mg/2 Ml Vial IVPUSH Q8H PRN Nausea and Vomiting Pharmacy Consult 1 each 09/13/20 06:51 Consult Rx Perform Med Rec MISCELLANE ONCE PRN Consult order Prednisone 40 mg 09/14/20 09:00 09/17/20 08:07 Prednisone 20 Mg Tablet PO 40 mg DAILY KATIE Administration Sodium Chloride 3 ml 09/13/20 16:56 09/17/20 15:36 0.9 % Sodium Chloride Flush 3 Ml Syringe IVFLUSH 3 ml QSHIFT KATIE Administration Labs CBC & Chem 7: 09/14/20 05:50 09/14/20 05:50 Microbiology Microbiology Results: Microbiology 09/13/20 06:29 Blood - Venous Blood Culture - Preliminary No growth after 48 hours. 09/13/20 06:24 Blood - Venous Blood Culture - Preliminary No growth after 48 hours. Assessment and Plan (1) Hypoxia: Status: Acute Assessment and Plan: 59 year old women admitted with acute respiratory failure secondary to Covid-19. Hypoxia has improved with oxygen. Covid hypoxia has resolved. continue Dexameth for 10 days -no indication for plasma or remdesevir or antibiotics -wean off O2 Home if O2 is good on room air overnight.
[2020-09-17 19:27] VITALS: BP 100/65; PULSE 87; RESP 20; TEMP 37.3; O2SAT 92
[2020-09-18 00:19] VITALS: BP 117/65; PULSE 91; RESP 16; TEMP 36.9; O2SAT 92
[2020-09-18 03:31] VITALS: BP 97/59; PULSE 96; RESP 14; TEMP 37; O2SAT 92
[2020-09-18 03:37] VITALS: BP 127/82; PULSE 68; RESP 14; TEMP 36.6; TEMP 37; O2SAT 98
[2020-09-18] MEDS: Ascorbic Acid 500 MG TABLET PO (07:44)
[2020-09-18] MEDS: 0.9 % Sodium Chloride Flush 3 ML SYRINGE IVFLUSH (07:44)
[2020-09-18] MEDS: Multivitamin TABLET 1 TAB PO (07:44)
[2020-09-18] MEDS: predniSONE 20 MG TABLET 40 MG PO (07:44)
[2020-09-18 08:00] VITALS: BP 103/58; BP 95/57; PULSE 100; RESP 18; TEMP 37; O2SAT 93
[2020-09-18 12:34] VITALS: BP 107/62; PULSE 96; RESP 20; TEMP 36.9; O2SAT 93
--- NOTE | 2020-09-18 13:26 | PM.DS ---
DS: Providers Provider Date of admission: 09/13/20 10:01 Date of discharge 09/18/20 Primary care physician: Unknown Physician Consults: 09/13/20 16:56 Consult to Infectious Diseases Routine Consulting Provider: Yanely Asher Reason for consultation: hypoxia, covid Has provider been notified: No DS: Diagnosis Discharge Diagnosis (1) Hypoxia: Status: Acute DS: Medications Discharge Medications Home Medications: Home Medications Medication Instructions Recorded Confirmed prednisolone acetate 1 drp OPHTHALMIC-LEFT BID 09/13/20 09/13/20 Previous Rx's Medication Instructions Recorded prednisone 40 mg PO DAILY #10 tab 09/18/20 DS: Summary Hospital Course Hospital Course: Patient was diagnosed with covid 19 and was being treated at home with Prednisone and Augmentin however got worse with Oxygen saturation dropping into 80s and came to hospital and was admitted due to acute hypoxic respiratory failure and was given Steroid and oxygen and over the course of hospitalization has significantly iproved with O2 now 93% room air and symptomatically feels better and will treated for 5 more days with steroid. There is no indication to continue Augmentin as now not required antibitics in the hospital. To finish self isolation at home and follow up with PCP in a week. Time Spent with Patient Time attestation: Total time spent providing and/or coordinating discharge services: Physical Exam Vital Signs: Vital Signs: Last Vital Signs Temp 98.5 F 09/18/20 12:34 Pulse 96 09/18/20 12:34 Resp 20 09/18/20 12:34 BP 107/62 09/18/20 12:34 Pulse Ox 93 09/18/20 12:34 Body Mass Index 25.1 General: AO X 3, no acute distress Resp: CTA bilateral CVS: S1,S2,RRR GI: +BS, NT, no distention Skin: No rash Neuro: motor grossly intact Psych: appropriate affect DS: Data Data Completed and Pending Labs on day of discharge: 09/13/20 05:59 ECG 12 lead EKG Stat EKG Documentation DIRECTED 09/13/20 06:00 XR chest 1V Stat 09/13/20 06:01 Doxycycline Hyclate [Vibramycin] 100 mg PO ONCE ONE cefTRIAXone sodium [Rocephin] 1 gm 0.9 % Sodium Chloride [Ns] 50 ml IV ONCE dexAMETHasone sod phosphate [Decadron] 4 mg IVPUSH ONCE ONE 09/13/20 06:24 Basic Metabolic Panel Stat Complete Blood Count Auto Diff Stat D Dimer Stat Ferritin Stat Lactate Dehydrogenase Stat Lactic Acid Stat Liver Panel Stat Troponin-I High Sensitivity Stat 09/13/20 06:29 Blood Culture X2 [BC] Stat 09/13/20 06:40 cefTRIAXone sodium [Rocephin] 1 gm .ROUTE .STK-MED ONE 09/13/20 09:59 Transfer Order Routine 09/13/20 12:31 ED Diet NOW 09/14/20 05:50 Basic Metabolic Panel DAILY@0600 Complete Blood Count Auto Diff DAILY@0600 Laboratory Last Values WBC 8.0 X10*3/uL (4.8-10.8) 09/14/20 05:50 RBC 4.51 X10*6/uL (4.20-5.50) 09/14/20 05:50 Hgb 13.9 g/dl (12.0-16.0) 09/14/20 05:50 Hct 41.2 % (37-47) 09/14/20 05:50 MCV 91.4 fL (80-98) 09/14/20 05:50 MCH 30.8 pg (27.0-33.0) 09/14/20 05:50 MCHC 33.7 g/dl (31.0-35.0) 09/14/20 05:50 RDW 11.8 % (11.0-16.0) 09/14/20 05:50 Plt Count 213 X10*3/uL (160-400) 09/14/20 05:50 MPV 9.2 fL (9.4-12.3) L 09/14/20 05:50 Immature Gran % (Auto) 0.4 % (0.0-0.4) 09/14/20 05:50 Neut % (Auto) 71.0 % (45-73) 09/14/20 05:50 Lymph % (Auto) 22.4 % (20-40) 09/14/20 05:50 [place] % (Auto) 6.1 % (2-11) 09/14/20 05:50 Eos % (Auto) 0.0 % (0-4) 09/14/20 05:50 Baso % (Auto) 0.1 % (0-2) 09/14/20 05:50 Lymph # (Auto) 1.8 X10*3/uL (1.2-4.9) 09/14/20 05:50 [place] # (Auto) 0.5 X10*3/uL (0.1-1.2) 09/14/20 05:50 Eos # (Auto) 0.0 X10*3/uL (0.0-0.4) 09/14/20 05:50 Baso # (Auto) 0.0 X10*3/uL (0.0-0.2) 09/14/20 05:50 Abs Immat Gran (auto) 0.03 X10*3/uL (0.00-0.03) 09/14/20 05:50 Absolute Neuts (auto) 5.7 X10*3/uL (2.0-8.3) 09/14/20 05:50 Absolute Nucleated RBC 0.000 X10*3/uL (0.0-0.012) 09/14/20 05:50 Nucleated RBC % (auto) 0.0 /100WBC (0.0-0.2) 09/14/20 05:50 D-Dimer 236 NG/ML 09/13/20 06:24 Sodium 135 mmol/L (135-145) 09/14/20 05:50 Potassium 5.3 mmol/l (3.3-5.1) H D 09/14/20 05:50 Chloride 98 mmol/L (96-108) 09/14/20 05:50 Carbon Dioxide 29 mmol/L (22-29) 09/14/20 05:50 Anion Gap 13 (-20) 09/14/20 05:50 BUN 10 mg/dL (9-16) 09/14/20 05:50 Creatinine 0.78 mg/dL (0.5-1.4) 09/14/20 05:50 Estim Creat Clear Calc 77.4 09/14/20 05:50 Estimated GFR > 60 09/14/20 05:50 Random Glucose 90 mg/dL (60-115) 09/14/20 05:50 Lactic Acid 1.1 mmol/L (0.5-2.0) 09/13/20 06:24 Calcium 8.9 mg/dL (8.4-10.2) 09/14/20 05:50 Ferritin 480 ng/mL (10-250) H 09/13/20 06:24 Total Bilirubin 0.6 mg/dL (0.0-1.0) 09/13/20 06:24 Direct Bilirubin 0.2 mg/dL (0.0-0.5) 09/13/20 06:24 AST 26 U/L (5-31) 09/13/20 06:24 ALT 22 U/L (0-31) 09/13/20 06:24 Alkaline Phosphatase 57 U/L (39-117) 09/13/20 06:24 Lactate Dehydrogenase 237 U/L (122-220) H 09/13/20 06:24 Troponin I High Sens < 3.5 ng/L (<3.5-17.0) 09/13/20 06:24 Total Protein 6.9 g/dL (6.5-8.0) 09/13/20 06:24 Albumin 4.0 g/dL (3.5-5.0) 09/13/20 06:24 Discharge Plan Discharge Anticipated Discharge Date/Time: 09/18/20 13:15 Patient Disposition: Home, Self-Care Referrals: Physician,Unknown [Primary Care Provider] - Discharge Medications: New prednisone 20 mg Tablet 40 mg PO DAILY Qty: 10 RF: 0 Continued prednisolone acetate 1 % drops,suspension 1 drp ophthalmic-Left BID RF: 0 Discontinued amoxicillin-pot clavulanate [Augmentin] 875-125 mg tablet 1 tab PO BID 10 Days Qty: 20 RF: 0 prednisone 20 mg tablet 20 mg PO DAILY MDD 3 for 3days;2 for 3 days;1 3da 9 Days Qty: 18 RF: 0 Discharge Orders: Discharge Order (Routine); Ordered 09/18/20 Ordered By: Rasheed Love Diet: advance to usual diet Activity on Discharge: As tolerated Discharge Date/Time: 09/18/20 15:30 Visit Report Forms: Patient Portal Discharge page Care Plan Goals: treat covid Health Concerns: covid Plan of Treatment: take prednisone as recommended and follow up with your Doctor in a week. Follwo Isolation protocoal, 14 days from days tested from covid
--- NOTE | 2020-09-18 13:35 | MHC.CM.PN ---
pt to [facility] home today with no services
[2020-09-18] MEDS: Acetaminophen 325 MG TABLET 650 MG PO (13:59)
== END 2020-09-18 15:30 | disposition home or self-care (01) | DRG 137 ==
LOC: HO.ED 06:54 → HO.IMC 15:04
PROVIDERS: Nurse Practitioner Acute Care; Admitting Provider Internal Medicine; Emergency Provider Internal Medicine; Visit Provider Internal Medicine
DX: U07.1 COVID-19 (principal); J96.01 Acute respiratory failure with hypoxia; J12.89 Other viral pneumonia; E87.5 Hyperkalemia; Z20.828 Contact with and (suspected) exposure to other viral communicable diseases; Z88.2 Allergy status to sulfonamides; Z79.899 Other long term (current) drug therapy
CPT/HCPCS: 36415; 71045; 80048; 80076; 82728; 83605; 83615; 84484; 85025; 85379; 87040; 93005; 96365; 96375; 99285; J0696; J1100; J1650

== ENCOUNTER 2020-09-28 09:19 | Outpatient (REF) | payer OTHER, SELFPAY ==
--- NOTE | 2020-09-28 09:24 | US_ITS ---
EXAMINATION: XR CHEST CLINICAL INFORMATION: Difficulty breathing COMPARISON: Previous chest x-rays most recent September 13 2020 TECHNIQUE: 2 views of the chest were obtained. FINDINGS: The cardiac and mediastinal contours are stable. There are bilateral infiltrates. This appears slightly increased from most recent exam tThere is no pleural effusion or pneumothorax. There is a pectus deformity of the chest. There are degenerative changes of the spine. US/US extremity nonvascular IMPRESSION: Bilateral infiltrates slightly increased from previous exam. EXAMINATION: Ultrasound extremity nonvascular CLINICAL INFORMATION: Soft tissue mass left upper arm COMPARISON: None. TECHNIQUE: Doppler color and grayscale evaluation of the soft tissues of the left upper arm using a linear transducer FINDINGS: There is a 1.6 x 1.3 x 0.6 cm hyperechoic solid lesion just deep to the skin in the left upper arm. This is avascular. Ultrasound appearance would be consistent with a lipoma. 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 This is painful or enlarging, additional imaging is seen to MRI imaging should be considered.
--- NOTE | 2020-09-28 09:27 | XR_ITS ---
EXAMINATION: XR CHEST CLINICAL INFORMATION: Difficulty breathing COMPARISON: Previous chest x-rays most recent September 13 2020 TECHNIQUE: 2 views of the chest were obtained. FINDINGS: The cardiac and mediastinal contours are stable. There are bilateral infiltrates. This appears slightly increased from most recent exam tThere is no pleural effusion or pneumothorax. There is a pectus deformity of the chest. There are degenerative changes of the spine. XR/XR chest 2V IMPRESSION: Bilateral infiltrates slightly increased from previous exam. EXAMINATION: Ultrasound extremity nonvascular CLINICAL INFORMATION: Soft tissue mass left upper arm COMPARISON: None. TECHNIQUE: Doppler color and grayscale evaluation of the soft tissues of the left upper arm using a linear transducer FINDINGS: There is a 1.6 x 1.3 x 0.6 cm hyperechoic solid lesion just deep to the skin in the left upper arm. This is avascular. Ultrasound appearance would be consistent with a lipoma. 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 This is painful or enlarging, additional imaging is seen to MRI imaging should be considered.
== END 2020-09-28 09:20 | disposition home or self-care (01) ==
LOC: HO.HMGCX 09:19
PROVIDERS: PCP Internal Medicine; Visit Provider Nurse Practitioner Family
DX: R06.89 Other abnormalities of breathing (principal); M79.89 Other specified soft tissue disorders
CPT/HCPCS: 71046; 76882

== ENCOUNTER 2020-10-07 07:23 | Outpatient (REF) | payer OTHER, SELFPAY ==
[2020-10-07 11:51] LABS: D Dimer 524 NG/ML
== END 2020-10-07 07:24 | disposition home or self-care (01) ==
LOC: HO.HMGCLDS 07:23
PROVIDERS: PCP Internal Medicine; Visit Provider Nurse Practitioner Family
DX: J06.9 Acute upper respiratory infection, unspecified (principal); R06.89 Other abnormalities of breathing
CPT/HCPCS: 36415; 85379

== ENCOUNTER 2020-10-10 14:07 | Outpatient (REF) | payer OTHER, SELFPAY ==
--- NOTE | 2020-10-10 14:11 | CT_ITS ---
EXAMINATION: CT ANGIOGRAM CHEST CLINICAL INFORMATION: Pneumonia COMPARISON: Shortness of breath. Elevated d-dimer. Evaluate for pulmonary embolism. TECHNIQUE: Multiple axial images were obtained through the chest after the administration of 65 mL of Omnipaque 350 intravenous contrast. Extensive vascular post-processing including two-dimensional and three-dimensional reformatted images were created and reviewed on an independent workstation. This CT examination was performed using dose optimization techniques as appropriate, variously including the following: *Automated exposure control *Adjustment of mA and/or kV according to patient size (this includes techniques or standardized protocols for targeted exams where dose is matched to indication/reason for exam; i.e. extremities or head) *Use of iterative reconstruction technique DLP: 117 mGy-cm FINDINGS: There is good opacification of the pulmonary arteries. There is no evidence of pulmonary embolism. There are scattered peripheral groundglass attenuation infiltrates and linear scarring or subsegmental atelectasis. This is similar to previous chest x-ray 09/28/2020 and would be compatible with Covid infection. The heart does not appear enlarged. There is a very small pericardial effusion. The thoracic aorta is normal in caliber. There are small There are no enlarged hilar or mediastinal lymph nodes. The visualized thyroid gland is unremarkable. There is no pleural effusion or pleural thickening. Images through the upper abdomen are unremarkable. No chest wall mass or enlarged axillary lymph nodes are seen. There are degenerative changes of the spine. CT/CT angio chest IMPRESSION: No evidence of pulmonary embolism. Peripheral groundglass attenuation infiltrates and linear scarring or chronic subsegmental atelectasis similar to previous chest x-ray. Chest CT appearance would be compatible with Covid infection. Very small pericardial effusion.
[2020-10-10] MEDS: iohexoL 350 MG/ML 100 ML INFUS..BTL IV (15:04)
== END 2020-10-10 14:08 | disposition home or self-care (01) ==
LOC: HO.CT 14:07
PROVIDERS: PCP Internal Medicine; Visit Provider Nurse Practitioner Family
DX: U07.1 COVID-19 (principal); J12.82 Pneumonia due to coronavirus disease 2019; R06.89 Other abnormalities of breathing; J06.9 Acute upper respiratory infection, unspecified; R06.02 Shortness of breath
CPT/HCPCS: 71275; Q9967

== ENCOUNTER 2020-10-15 13:55 | Emergency (ER) | payer OTHER, SELFPAY ==
[2020-10-15 14:07] VITALS: BP 125/74; PULSE 87; RESP 18; TEMP 36.9; O2SAT 98; BMI 25.0
--- NOTE | 2020-10-15 14:31 | ECG_ITS ---
Test Reason : DIZZY Blood Pressure : / mmHG Vent. Rate : 070 BPM Atrial Rate : 070 BPM P-R Int : 162 ms QRS Dur : 076 ms QT Int : 372 ms P-R-T Axes : 084 039 041 degrees QTc Int : 401 ms Normal sinus rhythm Normal ECG When compared with ECG of 13-SEP-2020 06:00, No significant change was found Referred By: Andreia Samano Electronically Signed By:SAGRARIO APPIAH
--- NOTE | 2020-10-15 14:32 | ED.GENADULT ---
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 Did not have any associated focal weakness, vision changes, slurred speech, DIETZ, chest pain, palpitations, shortness of breath, nausea or diaphoresis. Onset (ago): hour(s) Related Data Home Medications Medication Instructions Recorded Confirmed prednisolone acetate 1 drp OPHTHALMIC-LEFT BID 09/13/20 09/13/20 Previous Rx's Medication Instructions Recorded prednisone 40 mg PO DAILY #10 tab 09/18/20 azithromycin 250 mg tablet See Rx Instructions PO .COMPLEX 5 09/28/20 Days #6 tab Allergies Allergy/AdvReac Type Severity Reaction Status Date / Time sulfamethoxazole Allergy Intermediate HIVES Verified 10/15/20 14:11 [From BACTRIM] trimethoprim [From BACTRIM] Allergy Intermediate HIVES Verified 10/15/20 14:11 Sulfa (Sulfonamide Allergy Unknown rash Verified 10/15/20 14:11 Antibiotics) Review of Systems Review of Systems: Yes all other systems are reviewed and are negative Constitutional: Constitutional: Reports no additional constitutional complaints, Denies body ache(s), Denies chills, Denies fever(s), Denies headache(s) and Denies weakness Eyes: Eyes: Reports no additional eye complaints and Denies change in vision ENT: Reports system reviewed and no additional complaints, except as documented, Reports dizziness (lightheadeness), Denies headache(s), Denies nasal congestion, Denies nasal discharge and Denies neck pain Cardiovascular: Cardiovascular: Reports no additional cardiovascular complaints, Denies chest pain, Denies leg edema and Denies dyspnea Respiratory: Respiratory: Reports no additional respiratory complaints, Denies cough and Denies dyspnea Gastrointestinal: Gastrointestinal: Reports no additional gastrointestinal complaints, Denies abdominal pain, Denies diarrhea, Denies nausea and Denies vomiting Genitourinary: Genitourinary: Reports no additional female genitourinary complaints and Denies urinary incontinence Musculoskeletal: Musculoskeletal: Reports no additional musculoskeletal complaints, Denies back pain, Denies arthralgias, Denies joint swelling, Denies neck pain, Denies numbness and Denies tingling Integumentary/Breasts: Skin/Breast: Reports system reviewed and no additional complaints, except as docu and Denies rash Neurologic: Reports system reviewed and no additional complaints, except as documented, Denies Abnormal speech present, Reports dizziness (lightheadeness), Denies headache(s), Denies numbness, Denies tingling and Denies weakness PMFSH Past Medical History Attestation statement: The following information was validated with the patient. Source: old records reviewed and nursing notes reviewed Medical History Detached retina, left Social History Social History Household Members: None Housing: Apartment Smoking Status: Never smoker Second Hand Smoke Exposure: No Advance Directives: No Advance Directives Information Provided: No service: No Current occupational status: employed Physical Exam Vital Signs: Vital Signs: Last Vital Signs Temp 98.5 F 10/15/20 14:07 Pulse 87 10/15/20 14:07 Resp 18 10/15/20 14:07 BP 125/74 10/15/20 14:07 Pulse Ox 98 10/15/20 14:07 Body Mass Index 25.0 Const: General: cooperative, healthy appearing, comfortable and no acute distress Orientation/consciousness: patient oriented x3 Limitations: no limitations HENMT: Head: Yes normal to inspection Ears: hearing grossly normal bilaterally General nose exam: Normal external nose present Face and sinus: Yes normal facial exam Mouth: Normal oral and palatal mucosa present Throat: Yes posterior oropharynx normal Eyes: General: appearance normal, both eyes and all related structures Pupils: Equal, round and reactive pupils present Neck: Neck: Yes normal visual inspection Chest: Chest palpation & inspection: normal inspection of the chest Resp: Effort & Inspection: normal respiratory effort Auscultation: clear to auscultation bilaterally Cardio: Rate: regular rate Rhythm: regular rhythm Peripheral pulses: Peripheral pulses 2+ throughout GI: Inspection: Yes normal to inspection Palpation (GI): Soft to palpation and nontender Auscultation: normal bowel sounds Back/Spine/Pelvis: Thoracic/Lumbar Spine: thoracic and lumbar spine normal to inspection Skin: General skin exam: no rashes or lesions noted Neuro: General: patient oriented x3, no focal motor deficits and normal sensation to monofilament Cranial nerves: Yes CN's II-XII intact bilaterally, Yes Equal, round and reactive pupils present, Yes Bilaterally intact EOM present, Yes Nystagmus not present, Yes Normal facial strength present and Yes Midline tongue present Cognition (Neuro): normal cognition Speech: No Abnormal speech present Gait exam (Neuro): Normal gait present Motor exam (neuro): 5/5 motor strength present throughout Sensory Exam: Normal double simultaneous stimulation for sensation Coordination: [id number] test normal, aoel-iu-diup test normal and tandem gait normal Extrem: General: Yes normal to inspection NIH Stroke Scale Internal: Initial- Upon Arrival Level of Consciousness: Alert Level of Consciousness Questions: Answers both questions correctly Level of Consciousness Commands: Performs both tasks correctly Best Gaze: Normal (visual loss left eye unchanged ) Visual: No visual loss (no new changes per patient, visual loss left side) Facial Palsy: Normal Motor Arm (Right): No drift Motor Arm (Left): No drift Motor Leg (Right): No drift Motor Leg (Left): No drift Limb Ataxia: Absent Sensory: Normal Best Language: No aphasia Dysarthia: Normal Extinction and Inattention: No abnormality Score: 0 Course Course Course Narrative: 59 yo female here with 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 No other associated complaints. Normal neurological exam, stable vital signs. Will check EKG, labs. 1600-labs are unremarkable. EKG shows no ischemic changes. Patient had no additional episodes while she was here. She tells me she used to have hypoglycemic episodes and this does feel similar to that. During the episode she drinks orange juice and had something to eat. We discussed that this may have occurred again. We discussed that she should follow-up with her primary care doctor for further evaluation and treatment as needed. Reviewed worrisome signs and symptoms of when to return to the emergency department. Comfortable discharge home. Medical Decision Making MDM Narrative Medical decision making narrative: electrolyte abnormality, hypoglycemic episode, acs, Less likely electrolyte abnormality with normal labs. Less likely ACS with atypical symptoms, troponin that is negative an EKG which shows no ischemic changes. Medical Records Medical records reviewed: Yes I reviewed the patient's medical records. Lab Data Lab results reviewed: Yes I reviewed the patient's lab results. Result diagrams: 10/15/20 14:44 10/15/20 14:44 Labs: Lab Results 10/15/20 10/15/20 10/15/20 Range/Units 14:44 14:44 14:44 WBC 9.8 (4.8-10.8) X10*3/uL RBC 4.54 (4.20-5.50) X10*6/uL Hgb 14.0 (12.0-16.0) g/dl Hct 42.5 (37-47) % MCV 93.6 (80-98) fL MCH 30.8 (27.0-33.0) pg MCHC 32.9 (31.0-35.0) g/dl RDW 12.7 (11.0-16.0) % Plt Count 311 D (160-400) X10*3/uL MPV 8.9 L (9.4-12.3) fL Immature Gran % (Auto) 0.3 (0.0-0.4) % Neut % (Auto) 78.3 H (45-73) % Lymph % (Auto) 15.5 L (20-40) % [place] % (Auto) 5.0 (2-11) % Eos % (Auto) 0.5 (0-4) % Baso % (Auto) 0.4 (0-2) % Lymph # (Auto) 1.5 (1.2-4.9) X10*3/uL [place] # (Auto) 0.5 (0.1-1.2) X10*3/uL Eos # (Auto) 0.1 (0.0-0.4) X10*3/uL Baso # (Auto) 0.0 (0.0-0.2) X10*3/uL Abs Immat Gran (auto) 0.03 (0.00-0.03) X10*3/uL Absolute Neuts (auto) 7.7 (2.0-8.3) X10*3/uL Absolute Nucleated RBC 0.000 (0.0-0.012) X10*3/uL Nucleated RBC % (auto) 0.0 (0.0-0.2) /100WBC Hold Blue Top SEE NOTE Sodium 144 (135-145) mmol/L Potassium 4.4 (3.3-5.1) mmol/l Chloride 105 (96-108) mmol/L Carbon Dioxide 31 H (22-29) mmol/L Anion Gap 12 (12-20) BUN 12 (9-16) mg/dL Creatinine 0.82 (0.5-1.4) mg/dL Estim Creat Clear Calc 73.5 Estimated GFR > 60 Random Glucose 101 (60-115) mg/dL Calcium 10.1 D (8.4-10.2) mg/dL Magnesium 2.3 (1.6-2.6) mg/dL Total Bilirubin 0.5 (0.0-1.0) mg/dL Direct Bilirubin 0.2 (0.0-0.5) mg/dL AST 18 (5-31) U/L ALT 18 (0-31) U/L Alkaline Phosphatase 62 (39-117) U/L Troponin I High Sens (<3.5-17.0) ng/L Total Protein 7.1 (6.5-8.0) g/dL Albumin 4.5 (3.5-5.0) g/dL 10/15/20 Range/Units 14:44 WBC (4.8-10.8) X10*3/uL RBC (4.20-5.50) X10*6/uL Hgb (12.0-16.0) g/dl Hct (37-47) % MCV (80-98) fL MCH (27.0-33.0) pg MCHC (31.0-35.0) g/dl RDW (11.0-16.0) % Plt Count (160-400) X10*3/uL MPV (9.4-12.3) fL Immature Gran % (Auto) (0.0-0.4) % Neut % (Auto) (45-73) % Lymph % (Auto) (20-40) % [place] % (Auto) (2-11) % Eos % (Auto) (0-4) % Baso % (Auto) (0-2) % Lymph # (Auto) (1.2-4.9) X10*3/uL [place] # (Auto) (0.1-1.2) X10*3/uL Eos # (Auto) (0.0-0.4) X10*3/uL Baso # (Auto) (0.0-0.2) X10*3/uL Abs Immat Gran (auto) (0.00-0.03) X10*3/uL Absolute Neuts (auto) (2.0-8.3) X10*3/uL Absolute Nucleated RBC (0.0-0.012) X10*3/uL Nucleated RBC % (auto) (0.0-0.2) /100WBC Hold Blue Top Sodium (135-145) mmol/L Potassium (3.3-5.1) mmol/l Chloride (96-108) mmol/L Carbon Dioxide (22-29) mmol/L Anion Gap (12-20) BUN (9-16) mg/dL Creatinine (0.5-1.4) mg/dL Estim Creat Clear Calc Estimated GFR Random Glucose (60-115) mg/dL Calcium (8.4-10.2) mg/dL Magnesium (1.6-2.6) mg/dL Total Bilirubin (0.0-1.0) mg/dL Direct Bilirubin (0.0-0.5) mg/dL AST (5-31) U/L ALT (0-31) U/L Alkaline Phosphatase (39-117) U/L Troponin I High Sens < 3.5 (<3.5-17.0) ng/L Total Protein (6.5-8.0) g/dL Albumin (3.5-5.0) g/dL ECG Data Attestation: I personally reviewed and interpreted this ECG as follows: Interpretation: Normal sinus rhythm, rate of 70, normal MN, normal QRS, normal QT Discharge Plan Discharge Clinical Impression: Episodic lightheadedness Patient Disposition: Home, Self-Care Instructions: Lightheadedness (ED) Additional Instructions: Your blood sugar today was 100. I am wondering if your blood sugar was lower during this episode of shakiness and feeling dizzy. You should follow-up with her primary care doctor in regards to this. you may need additional testing done outpatient that we do not do here in the emergency department. Prescriptions: No Action azithromycin 250 mg tablet See Rx Instructions PO .COMPLEX 5 Days Qty: 6 RF: 0 prednisolone acetate 1 % drops,suspension 1 drp ophthalmic-Left BID RF: 0 prednisone 20 mg Tablet 40 mg PO DAILY Qty: 10 RF: 0 Referrals: Kristine Nielson MD [Primary Care Provider] - 2 days Interventions: ED Discharge Assessment Last Done: 10/15/20 16:04 Discharge Date/Time: 10/15/20 16:05
[2020-10-15 14:55] LABS: MANUAL DIFF FLAG NO
[2020-10-15 14:56] LABS: Basophils Percent Auto 0.4 % (0-2); Eosinophils Absolute Auto 0.1 X10*3/uL (0.0-0.4); Eosinophils Percent Auto 0.5 % (0-4); Hematocrit 42.5 % (37-47); Imm Gran Abs Auto 0.03 X10*3/uL (0.00-0.03); Imm Gran Pct Auto 0.3 % (0.0-0.4); Lymphocytes Absolute Auto 1.5 X10*3/uL (1.2-4.9); Lymphocytes Percent Auto 15.5 % (20-40); Mean Corpuscular HGB Conc 32.9 g/dl (31.0-35.0); Mean Corpuscular Hemoglobin 30.8 pg (27.0-33.0); Mean Corpuscular Volume 93.6 fL (80-98); Mean Platelet Volume 8.9 fL (9.4-12.3); Monocytes Absolute Auto 0.5 X10*3/uL (0.1-1.2); Neutrophils Absolute Auto 7.7 X10*3/uL (2.0-8.3); Neutrophils Percent Auto 78.3 % (45-73); Platelet Count 311 X10*3/uL (160-400); Red Blood Count 4.54 X10*6/uL (4.20-5.50); Red Cell Distribution Width 12.7 % (11.0-16.0); White Blood Count 9.8 X10*3/uL (4.8-10.8)
[2020-10-15 15:30] LABS: Alanine Aminotransferase 18 U/L (0-31); Albumin Level 4.5 g/dL (3.5-5.0); Alkaline Phosphatase 62 U/L (39-117); Anion Gap 12 (12-20); Aspartate Amino Transferase 18 U/L (5-31); Bilirubin Direct 0.2 mg/dL (0.0-0.5); Bilirubin Total 0.5 mg/dL (0.0-1.0); Blood Urea Nitrogen 12 mg/dL (9-16); Calcium 10.1 mg/dL (8.4-10.2); Carbon Dioxide 31 mmol/L (22-29); Chloride 105 mmol/L (96-108); Creatinine Clr Calc Pharmacy 73.5; Estimated Glomerular Filt Rate > 60; Glucose Random 101 mg/dL (60-115); Magnesium 2.3 mg/dL (1.6-2.6); Potassium 4.4 mmol/l (3.3-5.1); Sodium 144 mmol/L (135-145); Total Protein 7.1 g/dL (6.5-8.0)
[2020-10-15 15:37] LABS: Troponin-I High Sensitivity < 3.5 ng/L (<3.5-17.0)
== END 2020-10-15 16:05 | disposition home or self-care (01) ==
PROVIDERS: Nurse Practitioner Family; Emergency Provider Internal Medicine; PCP Internal Medicine
DX: R42 Dizziness and giddiness (principal); Z86.16 Personal history of COVID-19; Z79.899 Other long term (current) drug therapy
CPT/HCPCS: 36415; 80048; 80076; 83735; 84484; 85025; 93005; 99283

== ENCOUNTER 2020-12-02 13:42 | Outpatient (REF) | payer OTHER, SELFPAY ==
--- NOTE | ~2020-12-02 | XR_ITS ---
EXAMINATION: XR LUMBOSACRAL SPINE XR DORSAL SPINE SERIES CLINICAL INFORMATION: General adult medical examination. COMPARISON: X-ray of the dorsal spine September 2012. CT lumbosacral spine August 2018. TECHNIQUE: 3 views of the lumbosacral spine. 3 views of the dorsal spine. FINDINGS: DORSAL SPINE: There is mild kyphosis. There is multilevel degenerative disc change manifested by endplate osteophytes and varying degrees of [id number]-[id number] disc space narrowing. I do not see a fracture. The surrounding soft tissues are normal. LUMBOSACRAL SPINE: There is degenerative anterolisthesis at L4-L5 with endplate osteophyte, disc space narrowing and bilateral facet arthrosis probably unchanged compared to prior. Otherwise there are degenerative disc changes present at the L1-L2 level with disc space narrowing and endplate osteophytes probably unchanged compared to prior CT. There is no fracture or bone lesion. The surrounding soft tissues are normal. The partially visualized pelvis is unremarkable. XR/XR thoracic spine 2V IMPRESSION: Stable spondylosis of the dorsal spine. Stable spondylosis of lumbosacral spine with grade 1 degenerative anterolisthesis at L4-L5.
--- NOTE | ~2020-12-02 | XR_ITS ---
EXAMINATION: XR SHOULDER, LEFT CLINICAL INFORMATION: Encounter for general adult medical exam COMPARISON: Chest x-ray November 2017 TECHNIQUE: AP external rotation, Grashey, scapular Y, and axillary views of the left shoulder. FINDINGS: The joint: There are marginal osteophytes along the inferior aspect of the head. Mild joint space narrowing. Enthesopathic cystic change present in the greater tuberosity. Mild arthrosis of the acromioclavicular joint. Deformity distal clavicle compatible with old clavicle fracture XR/XR shoulder LT min 2V IMPRESSION: Osteoarthritis of the glenohumeral joint mild to moderate. Mild osteoarthritis of the acromioclavicular joint. Old left clavicle fracture
--- NOTE | ~2020-12-02 | XR_ITS ---
EXAMINATION: XR LUMBOSACRAL SPINE XR DORSAL SPINE SERIES CLINICAL INFORMATION: General adult medical examination. COMPARISON: X-ray of the dorsal spine September 2012. CT lumbosacral spine August 2018. TECHNIQUE: 3 views of the lumbosacral spine. 3 views of the dorsal spine. FINDINGS: DORSAL SPINE: There is mild kyphosis. There is multilevel degenerative disc change manifested by endplate osteophytes and varying degrees of [id number]-tg-[id number] disc space narrowing. I do not see a fracture. The surrounding soft tissues are normal. LUMBOSACRAL SPINE: There is degenerative anterolisthesis at L4-L5 with endplate osteophyte, disc space narrowing and bilateral facet arthrosis probably unchanged compared to prior. Otherwise there are degenerative disc changes present at the L1-L2 level with disc space narrowing and endplate osteophytes probably unchanged compared to prior CT. There is no fracture or bone lesion. The surrounding soft tissues are normal. The partially visualized pelvis is unremarkable. XR/XR lumbar spine 2-3V IMPRESSION: Stable spondylosis of the dorsal spine. Stable spondylosis of lumbosacral spine with grade 1 degenerative anterolisthesis at L4-L5.
[2020-12-06 16:42] LABS: HPV mRNA E6/E7 Not Detected (Not Detected)
== END 2020-12-02 13:43 | disposition home or self-care (01) ==
LOC: HO.HMGCX 13:42
PROVIDERS: PCP Internal Medicine; Visit Provider Internal Medicine
DX: Z00.00 Encounter for general adult medical examination without abnormal findings (principal); M25.512 Pain in left shoulder; M54.9 Dorsalgia, unspecified
CPT/HCPCS: 72070; 72100; 73030; 87624; 88142

== ENCOUNTER 2020-12-05 07:45 | Outpatient (REF) | payer OTHER, SELFPAY ==
[2020-12-05 11:16] LABS: Hematocrit 42.1 % (37-47); Hemoglobin 14.2 g/dl (12.0-16.0); Mean Corpuscular HGB Conc 33.7 g/dl (31.0-35.0); Mean Corpuscular Hemoglobin 30.9 pg (27.0-33.0); Mean Corpuscular Volume 91.7 fL (80-98); Mean Platelet Volume 9.2 fL (9.4-12.3); Platelet Count 255 X10*3/uL (160-400); Red Blood Count 4.59 X10*6/uL (4.20-5.50); Red Cell Distribution Width 12.2 % (11.0-16.0); White Blood Count 5.4 X10*3/uL (4.8-10.8)
[2020-12-05 11:50] LABS: Alanine Aminotransferase 15 U/L (0-31); Albumin Level 4.3 g/dL (3.5-5.0); Alkaline Phosphatase 58 U/L (39-117); Anion Gap 13 (12-20); Aspartate Amino Transferase 17 U/L (5-31); Bilirubin Total 0.9 mg/dL (0.0-1.0); Blood Urea Nitrogen 13 mg/dL (9-16); Calcium 9.3 mg/dL (8.4-10.2); Carbon Dioxide 29 mmol/L (22-29); Chloride 105 mmol/L (96-108); Cholesterol 206 mg/dL; Estimated Glomerular Filt Rate > 60; Glucose Fasting 98 mg/dL (60-99); HDL Cholesterol 62 mg/dL; LDL Cholesterol Calculated 127 mg/dl; Potassium 4.5 mmol/L (3.3-5.1); Sodium 142 mmol/L (135-145); Total Protein 6.7 g/dL (6.5-8.0); Triglycerides 87 mg/dL
[2020-12-05 12:00] LABS: TSH reflex Free T4 2.77 uIU/mL (0.32-4.0)
== END 2020-12-05 07:46 | disposition home or self-care (01) ==
LOC: HO.HMGCLDS 07:45
PROVIDERS: PCP Internal Medicine; Visit Provider Internal Medicine
DX: Z00.00 Encounter for general adult medical examination without abnormal findings (principal); R06.89 Other abnormalities of breathing; J18.9 Pneumonia, unspecified organism; U07.1 COVID-19
CPT/HCPCS: 36415; 80053; 80061; 84443; 85027

== ENCOUNTER 2020-12-31 16:24 | Emergency (ER) | payer OTHER, SELFPAY ==
--- NOTE | ~2020-12-31 | CT_ITS ---
EXAMINATION: CT ANGIOGRAM OF THE CHEST WITH AND WITHOUT CONTRAST (CT PULMONARY ANGIOGRAM FOR PE) CLINICAL INFORMATION: Reason for Exam sob post covid COMPARISON: CT angiogram chest 04/09/2021 TECHNIQUE: Prior to contrast administration, noncontrast localization images were obtained. Subsequently, multidetector volumetric imaging was performed from the thoracic inlet to below the diaphragms following the administration of 62 mL Omnipaque 350 intravenous contrast. No contrast reaction reported Sagittal, coronal, and MIP oblique sagittal reformatted images were obtained on the CT workstation, uploaded to PACS, and reviewed. This CT examination was performed using dose optimization techniques as appropriate, variously including the following: *Automated exposure control *Adjustment of mA and/or kV according to patient size (this includes techniques or standardized protocols for targeted exams where dose is matched to indication/reason for exam; i.e. extremities or head) *Use of iterative reconstruction technique Total exam dose-length product 299 mGy-cm FINDINGS: QUALITY OF STUDY/CONTRAST BOLUS: Satisfactory. PULMONARY ARTERIES: No central or segmental pulmonary emboli. THORACIC AORTA: No aneurysm or dissection. LUNG: There has been some improvement in appearances of a linear scarring of peripheral groundglass opacities seen at the time of the prior study. Minimal abnormality remains. One new area of atelectasis is present at the left lung base. No suspicious lung masses are seen. PLEURA: No pleural effusion or pneumothorax. MEDIASTINUM: Normal heart size. No pericardial effusion. No hilar or mediastinal lymphadenopathy. No evidence of septal bowing or right heart strain. CHEST WALL/AXILLA: No axillary or internal mammary lymphadenopathy. OSSEOUS STRUCTURES: No acute or suspicious osseous abnormality. UPPER ABDOMEN: Unremarkable. No reflux of contrast into the hepatic veins to suggest elevated right heart pressures. CT/CT angio chest PE protocol IMPRESSION: No evidence of pulmonary emboli Improving peripheral groundglass infiltrates in scarring/atelectasis. No acute intrathoracic disease. VTE: negative
--- NOTE | 2020-12-31 16:26 | ECG_ITS ---
Test Reason : CHEST PAIN Blood Pressure : / mmHG Vent. Rate : 099 BPM Atrial Rate : 099 BPM P-R Int : 168 ms QRS Dur : 084 ms QT Int : 350 ms P-R-T Axes : 081 036 038 degrees QTc Int : 449 ms Normal sinus rhythm Nonspecific ST abnormality Borderline ECG When compared with ECG of 15-OCT-2020 14:38, No significant change was found Referred By: Generic ED Physician Electronically Signed By:SAGRARIO APPIAH
[2020-12-31 16:27] VITALS: BP 151/85; PULSE 100; RESP 18; TEMP 36.4; O2SAT 98; BMI 24.3
[2020-12-31 16:44] VITALS: BP 133/82; PULSE 100; RESP 22; O2SAT 98
--- NOTE | 2020-12-31 17:20 | ED.CHESTPAIN ---
HPI - Chest Pain General Chief Complaint: Chest Pain Stated Complaint: Palpitations Time Seen by Provider: 12/31/20 16:49 Source: patient Mode of arrival: ambulatory Limitations: no limitations History of Present Illness HPI narrative: Patient with no known coronary artery disease had COVID infection in August CTA at that time was negative for PE patient had a full recovery was doing fine for last 1 week complaining of slight exertional shortness of breath with chest tightness feels that she is not getting enough air patient denies any leg pain no chest pain no leg swelling no cough Related Data Home Medications Medication Instructions Recorded Confirmed No Known Home Meds 12/02/20 12/02/20 Allergies Allergy/AdvReac Type Severity Reaction Status Date / Time sulfamethoxazole Allergy Intermediate HIVES Verified 12/31/20 16:26 [From BACTRIM] trimethoprim [From BACTRIM] Allergy Intermediate HIVES Verified 12/31/20 16:26 Sulfa (Sulfonamide Allergy Unknown rash Verified 12/31/20 16:26 Antibiotics) Review of Systems Review of Systems: Constitutional : No Weight loss, No Fever, No Chills ENT/Mouth : No sore throat, No Rhinorrhea Eyes: No Eye Pain, No Swelling Cardiovascular : No Chest Pain, no palpitations Respiratory : No Cough, No Sputum, + shortness of breath Gastrointestinal : no Nausea, No Vomiting, No Diarrhea, No abdominal Pain, no black stools Genitourinary : No Dysuria, No Urinary Frequency Musculoskeletal : No joint pain, No Myalgias, No Joint Swelling Skin : No Skin Lesions, No rash Neuro : No Weakness, No Numbness, No Dizziness, No Headache Psych : No Anxiety/Panic, No Depression Heme/Lymph: No Bruising, No Lymphadenopathy Endocrine : No Polyuria, No Polydipsia All other systems reviewed and are negative [facility] Past Medical History Medical History Annual physical exam Back pain Detached retina, left Shoulder pain, left Surgical History H/O colonoscopy Social History Social History Household Members: None Housing: Apartment Alcohol intake: current Alcohol intake frequency: holidays/special occasions only Smoking Status: Never smoker Second Hand Smoke Exposure: No Use of substances other than those prescribed or required for medical reasons: No Advance Directives: No Advance Directives Information Provided: No service: No Current occupational status: employed Physical Exam Vital Signs: Vital Signs: Last Vital Signs Temp 97.6 F 12/31/20 16:27 Pulse 87 12/31/20 19:05 Resp 12 12/31/20 19:05 BP 129/77 12/31/20 19:05 Pulse Ox 97 12/31/20 19:05 Body Mass Index 24.3 Appearance: Alert. Oriented X3. No acute distress. Eyes: Pupils equal, round and reactive to light. ENT: Pharynx normal. Neck: Normal inspection. Neck supple. CVS: Normal heart rate and rhythm. Pulses normal. Respiratory: No respiratory distress. Breath sounds normal. Abdomen: Soft and nontender. Bowel sounds are present, no mass palpable, no CVA tenderness Skin: Skin warm and dry. Normal skin color. Normal skin turgor. Extremities: No lower extremity edema. No calf tenderness Neuro: Oriented X 3. No motor deficit. No sensory deficit. MDM - Chest Pain MDM Narrative Medical decision making narrative: Patient post COVID shortness of breath CTA chest was done which was negative for PE or any infiltrate showed mild fibrotic changes. Patient is saturating 97% on room air will discharge patient home advised to follow with PCP Medical Records Data Attestation: I reviewed the patient's medical records. Lab Data Attestation: I reviewed the patient's lab results. Result diagrams: 12/31/20 17:55 12/31/20 17:55 Labs: Lab Results 12/31/20 12/31/20 12/31/20 Range/Units 17:55 17:55 17:55 WBC 9.4 (4.8-10.8) X10*3/uL RBC 4.84 (4.20-5.50) X10*6/uL Hgb 15.0 (12.0-16.0) g/dl Hct 44.4 (37-47) % MCV 91.7 (80-98) fL MCH 31.0 (27.0-33.0) pg MCHC 33.8 (31.0-35.0) g/dl RDW 11.9 (11.0-16.0) % Plt Count 254 (160-400) X10*3/uL MPV 8.9 L (9.4-12.3) fL Immature Gran % (Auto) 0.3 (0.0-0.4) % Neut % (Auto) 68.8 (45-73) % Lymph % (Auto) 23.5 (20-40) % [place] % (Auto) 5.6 (2-11) % Eos % (Auto) 1.2 (0-4) % Baso % (Auto) 0.6 (0-2) % Lymph # (Auto) 2.2 (1.2-4.9) X10*3/uL [place] # (Auto) 0.5 (0.1-1.2) X10*3/uL Eos # (Auto) 0.1 (0.0-0.4) X10*3/uL Baso # (Auto) 0.1 (0.0-0.2) X10*3/uL Abs Immat Gran (auto) 0.03 (0.00-0.03) X10*3/uL Absolute Neuts (auto) 6.4 (2.0-8.3) X10*3/uL Absolute Nucleated RBC 0.000 (0.0-0.012) X10*3/uL Nucleated RBC % (auto) 0.0 (0.0-0.2) /100WBC Sodium 139 (135-145) mmol/L Potassium 4.1 (3.3-5.1) mmol/L Chloride 106 (96-108) mmol/L Carbon Dioxide 20 L (22-29) mmol/L Anion Gap 17 (12-20) BUN 14 (9-16) mg/dL Creatinine 0.93 (0.5-1.4) mg/dL Estim Creat Clear Calc 66.4 Estimated GFR > 60 Random Glucose 93 (60-115) mg/dL Calcium 9.5 (8.4-10.2) mg/dL Troponin I High Sens < 3.5 (<3.5-17.0) ng/L B-Natriuretic Peptide 15 (<100) pg/mL COVID-19 (AYAH) (Negative) COVID-19 Clin Com 12/31/20 Range/Units 17:55 WBC (4.8-10.8) X10*3/uL RBC (4.20-5.50) X10*6/uL Hgb (12.0-16.0) g/dl Hct (37-47) % MCV (80-98) fL MCH (27.0-33.0) pg MCHC (31.0-35.0) g/dl RDW (11.0-16.0) % Plt Count (160-400) X10*3/uL MPV (9.4-12.3) fL Immature Gran % (Auto) (0.0-0.4) % Neut % (Auto) (45-73) % Lymph % (Auto) (20-40) % [place] % (Auto) (2-11) % Eos % (Auto) (0-4) % Baso % (Auto) (0-2) % Lymph # (Auto) (1.2-4.9) X10*3/uL [place] # (Auto) (0.1-1.2) X10*3/uL Eos # (Auto) (0.0-0.4) X10*3/uL Baso # (Auto) (0.0-0.2) X10*3/uL Abs Immat Gran (auto) (0.00-0.03) X10*3/uL Absolute Neuts (auto) (2.0-8.3) X10*3/uL Absolute Nucleated RBC (0.0-0.012) X10*3/uL Nucleated RBC % (auto) (0.0-0.2) /100WBC Sodium (135-145) mmol/L Potassium (3.3-5.1) mmol/L Chloride (96-108) mmol/L Carbon Dioxide (22-29) mmol/L Anion Gap (12-20) BUN (9-16) mg/dL Creatinine (0.5-1.4) mg/dL Estim Creat Clear Calc Estimated GFR Random Glucose (60-115) mg/dL Calcium (8.4-10.2) mg/dL Troponin I High Sens (<3.5-17.0) ng/L B-Natriuretic Peptide (<100) pg/mL COVID-19 (AYAH) Negative (Negative) COVID-19 Clin Com See Note Discharge Plan Discharge Clinical Impression: Dyspnea Qualifiers: Dyspnea type: dyspnea on exertion Qualified Code(s): R06.00 - Dyspnea, unspecified Patient Disposition: Home, Self-Care Instructions: Dyspnea (ED) Additional Instructions: The shortness of breath is likely from prior COVID infection CT chest negative for blood clots No pneumonia seen. Report to the ER/PCP if worsening of shortness of breath Prescriptions: No Action No Known Home Meds RF: 0
[2020-12-31 17:59] LABS: MANUAL DIFF FLAG NO
[2020-12-31 18:01] LABS: Basophils Absolute Auto 0.1 X10*3/uL (0.0-0.2); Basophils Percent Auto 0.6 % (0-2); Eosinophils Absolute Auto 0.1 X10*3/uL (0.0-0.4); Eosinophils Percent Auto 1.2 % (0-4); Hematocrit 44.4 % (37-47); Imm Gran Abs Auto 0.03 X10*3/uL (0.00-0.03); Imm Gran Pct Auto 0.3 % (0.0-0.4); Lymphocytes Absolute Auto 2.2 X10*3/uL (1.2-4.9); Lymphocytes Percent Auto 23.5 % (20-40); Mean Corpuscular HGB Conc 33.8 g/dl (31.0-35.0); Mean Corpuscular Volume 91.7 fL (80-98); Mean Platelet Volume 8.9 fL (9.4-12.3); Monocytes Absolute Auto 0.5 X10*3/uL (0.1-1.2); Monocytes Percent Auto 5.6 % (2-11); Neutrophils Absolute Auto 6.4 X10*3/uL (2.0-8.3); Neutrophils Percent Auto 68.8 % (45-73); Platelet Count 254 X10*3/uL (160-400); Red Blood Count 4.84 X10*6/uL (4.20-5.50); Red Cell Distribution Width 11.9 % (11.0-16.0); White Blood Count 9.4 X10*3/uL (4.8-10.8)
--- NOTE | 2020-12-31 18:07 | PC.NURSE ---
IV placed and labs sent to laboratory.
[2020-12-31 18:18] LABS: COVID-19 Test Negative (Negative); IDNOW Serial# 9DD0AD1C
[2020-12-31 18:26] LABS: Anion Gap 17 (12-20); Blood Urea Nitrogen 14 mg/dL (9-16); Calcium 9.5 mg/dL (8.4-10.2); Carbon Dioxide 20 mmol/L (22-29); Chloride 106 mmol/L (96-108); Creatinine Clr Calc Pharmacy 66.4; Estimated Glomerular Filt Rate > 60; Glucose Random 93 mg/dL (60-115); Potassium 4.1 mmol/L (3.3-5.1); Sodium 139 mmol/L (135-145)
[2020-12-31 18:40] LABS: Troponin-I High Sensitivity < 3.5 ng/L (<3.5-17.0)
[2020-12-31 18:51] LABS: B Type Natriuretic Peptide 15 pg/mL (<100)
[2020-12-31] MEDS: iohexoL 350 MG/ML 100 ML INFUS..BTL IV (19:04)
[2020-12-31 19:05] VITALS: BP 129/77; PULSE 87; RESP 12; O2SAT 97
--- NOTE | 2020-12-31 19:06 | PC.NURSE ---
Resting comfortably in bed. 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 Breathing even, non-labored.
== END 2020-12-31 21:15 | disposition home or self-care (01) ==
PROVIDERS: Emergency Provider Internal Medicine
DX: R06.00 Dyspnea, unspecified (principal); Z86.16 Personal history of COVID-19
CPT/HCPCS: 36415; 71275; 80048; 83880; 84484; 85025; 87635; 93005; 99284; Q9967

== ENCOUNTER → 2021-01-17 13:28 | Outpatient (BNVA) | payer OTHER, SELFPAY | PROVIDERS: PCP Internal Medicine; Visit Provider Physician Assistant ==

== ENCOUNTER 2021-04-04 12:53 | Emergency (ER) | payer OTHER, SELFPAY ==
[2021-04-04 13:22] VITALS: BP 128/60; PULSE 79; RESP 18; TEMP 36.7; O2SAT 99; BMI 24.3
== END 2021-04-04 17:57 | disposition left against medical advice (07) ==
PROVIDERS: Emergency Provider Emergency Medicine; PCP Internal Medicine
DX: R10.9 Unspecified abdominal pain (principal)
CPT/HCPCS: 99281; 99282

== ENCOUNTER 2021-04-05 07:02 | Outpatient (REF) | payer OTHER, SELFPAY ==
[2021-04-05 11:10] LABS: MANUAL DIFF FLAG NO
[2021-04-05 11:22] LABS: Basophils Absolute Auto 0.1 X10*3/uL (0.0-0.2); Basophils Percent Auto 0.9 % (0-2); Eosinophils Absolute Auto 0.1 X10*3/uL (0.0-0.4); Eosinophils Percent Auto 2.6 % (0-4); Hematocrit 43.7 % (37-47); Hemoglobin 14.6 g/dl (12.0-16.0); Imm Gran Abs Auto 0.01 X10*3/uL (0.00-0.03); Imm Gran Pct Auto 0.2 % (0.0-0.4); Lymphocytes Absolute Auto 1.9 X10*3/uL (1.2-4.9); Mean Corpuscular HGB Conc 33.4 g/dl (31.0-35.0); Mean Corpuscular Hemoglobin 31.4 pg (27.0-33.0); Mean Platelet Volume 9.7 fL (9.4-12.3); Monocytes Absolute Auto 0.4 X10*3/uL (0.1-1.2); Monocytes Percent Auto 7.5 % (2-11); Neutrophils Absolute Auto 2.9 X10*3/uL (2.0-8.3); Neutrophils Percent Auto 53.8 % (45-73); Platelet Count 252 X10*3/uL (160-400); Red Blood Count 4.65 X10*6/uL (4.20-5.50); Red Cell Distribution Width 12.5 % (11.0-16.0); White Blood Count 5.3 X10*3/uL (4.8-10.8)
[2021-04-05 12:05] LABS: Alanine Aminotransferase 18 U/L (0-31); Albumin Level 4.4 g/dL (3.5-5.0); Alkaline Phosphatase 54 U/L (39-117); Amylase 32 U/L (28-100); Anion Gap 14 (12-20); Aspartate Amino Transferase 20 U/L (5-31); Bilirubin Total 0.7 mg/dL (0.0-1.0); Blood Urea Nitrogen 10 mg/dL (9-16); Calcium 9.7 mg/dL (8.4-10.2); Carbon Dioxide 27 mmol/L (22-29); Chloride 106 mmol/L (96-108); Estimated Glomerular Filt Rate > 60; Glucose Random 95 mg/dL (60-115); Lipase 18 U/L (8-78); Potassium 4.8 mmol/L (3.3-5.1); Sodium 142 mmol/L (135-145)
== END 2021-04-05 07:03 | disposition home or self-care (01) ==
LOC: HO.HMGCLDS 07:02
PROVIDERS: PCP Internal Medicine; Visit Provider Nurse Practitioner Family
DX: R10.9 Unspecified abdominal pain (principal)
CPT/HCPCS: 36415; 80053; 82150; 83690; 85025

== ENCOUNTER 2021-04-06 13:25 | Day surgery (SDC) | payer OTHER, SELFPAY ==
--- NOTE | 2021-04-05 10:54 | HO.ANESPROP2 ---
Documented by User: Lizz Martin 04/05/21 10:56 HPI - Anesthesia Eval Consult details Narrative: 60yo F for Colonoscopy PMFSH Active Problems Active Problems: All Active Problems (Updated 04/04/21 @ 17:44 by Mónica Will NP) Abdominal pain (Acute) Encounter for screening colonoscopy (Acute) Abdominal pain (Acute) Back pain (Acute) Shoulder pain, left (Acute) Annual physical exam (Acute) Pneumonia (Acute) Decreased breath sounds at right lung base (Acute) Mass of soft tissue of left upper extremity (Acute) Sore throat (viral) (Acute) Middle ear effusion (Acute) URI (upper respiratory infection) (Acute) Sinusitis, acute maxillary (Acute) COVID-19 (Acute) Past Medical History Medical History Abdominal pain Annual physical exam Back pain COVID-19 Detached retina, left Shoulder pain, left Family History Family History Father HTN (hypertension) Cancer Paternal Grandfather Heart attack Mother Infectious thyroiditis Alzheimer disease Maternal Grandmother Diabetes Surgical History Surgical History H/O colonoscopy H/O esophagogastroduodenoscopy Social History Social History Household Members: None Housing: Apartment Do you presently have visiting nurse or other home services: No Alcohol intake: current Alcohol intake frequency: holidays/special occasions only Patient Tobacco Use Status: Former Tobacco user Second Hand Smoke Exposure: No Use of substances other than those prescribed or required for medical reasons: No Are you DNR?: No Advance Directives: No Advance Directives Information Provided: Yes service: No Current occupational status: employed Meds Allergies Allergy/AdvReac Type Severity Reaction Status Date / Time sulfamethoxazole Allergy Intermediate HIVES Verified 04/04/21 16:47 [From BACTRIM] trimethoprim [From BACTRIM] Allergy Intermediate HIVES Verified 04/04/21 16:47 Sulfa (Sulfonamide Allergy Unknown rash Verified 04/04/21 16:47 Antibiotics) Exam Exam Date and Time: April 05, 2021 1054 Pertinent Lab Results Pertinent Lab Results: Laboratory Tests 12/31/20 12/31/20 17:55 17:55 WBC 9.4 Hgb 15.0 Hct 44.4 Plt Count 254 Sodium 139 Potassium 4.1 Chloride 106 Carbon Dioxide 20 L BUN 14 Creatinine 0.93 Narrative Narrative: EKG 12/2020 Vent. Rate : 099 BPM Atrial Rate : 099 BPM P-R Int : 168 ms QRS Dur : 084 ms QT Int : 350 ms P-R-T Axes : 081 036 038 degrees QTc Int : 449 ms Normal sinus rhythm Nonspecific ST abnormality Borderline ECG When compared with ECG of 15-OCT-2020 14:38, No significant change was found Assessment and Plan Assessment Anesthesia Assessment: Chart Reviewed Documented by User: Mainor Barr MD 04/06/21 14:19 [facility] Past Medical History Medical History Abdominal pain Annual physical exam Back pain COVID-19 Detached retina, left Shoulder pain, left Family History Family History Father HTN (hypertension) Cancer Paternal Grandfather Heart attack Mother Infectious thyroiditis Alzheimer disease Maternal Grandmother Diabetes Surgical History Surgical History H/O colonoscopy H/O esophagogastroduodenoscopy Social History Social History Household Members: None Housing: Apartment Do you presently have visiting nurse or other home services: No Alcohol intake: current Alcohol intake frequency: holidays/special occasions only Patient Tobacco Use Status: Former Tobacco user Second Hand Smoke Exposure: No Use of substances other than those prescribed or required for medical reasons: No Are you DNR?: No Advance Directives: No Advance Directives Information Provided: Yes service: No Current occupational status: employed Meds Allergies Allergy/AdvReac Type Severity Reaction Status Date / Time sulfamethoxazole Allergy Intermediate HIVES Verified 04/04/21 16:47 [From BACTRIM] trimethoprim [From BACTRIM] Allergy Intermediate HIVES Verified 04/04/21 16:47 Sulfa (Sulfonamide Allergy Unknown rash Verified 04/04/21 16:47 Antibiotics) Exam Airway Mallampati Class: II Neck ROM: Full Assessment and Plan Assessment Anesthesia Assessment: Anesthesia Plan Discussed and Chart Reviewed Final Anesthetic Review NPO: Yes ASA Class: II Final Preanesthetic Review: No Changes in Pt Med Stat, Meds/Allgs Chart Reviewed, Consent Obtained/Reviewed and Anes Risks/Benef Reviewed Patient Risk: Low Procedure Risk: Low Anesthetic Plan Anesthetic Plan: MAC: Disposition: Standard PACU
[2021-04-06 13:49] VITALS: BP 102/76; PULSE 100; RESP 16; TEMP 36.2; O2SAT 97; BMI 23.4
[2021-04-06] MEDS: Lactated Ringers 1,000 ML 100 ML IVCONT (13:53)
--- NOTE | 2021-04-06 14:13 | P.HPSUR_ITS ---
Pre-Procedural Eval Section A Date of Service: 04/06/21 Section B Chief Complaint: screening,abdominal pain Relevant Family History (Specify if Yes): No Relevant Social History: None Present Medications: see Short Stay Collaborative assessment Medical History: Significant History (Abdominal pain Annual physical exam Back pain COVID-19 Detached retina, left Shoulder pain, left) History of Previous Operations: Relevant previous surgery/procedure and date(s) (egd,colonoscopy) Allergies: Allergies Allergy/AdvReac Type Severity Reaction Status Date / Time sulfamethoxazole Allergy Intermediate HIVES Verified 04/04/21 16:47 [From BACTRIM] trimethoprim [From BACTRIM] Allergy Intermediate HIVES Verified 04/04/21 16:47 Sulfa (Sulfonamide Allergy Unknown rash Verified 04/04/21 16:47 Antibiotics) Review of Systems Sugical H&P ROS: Negative: Constitution, Cardiovascular, Respiratory, Neurological, Psychiatric, Hem-Onc, Allergic/Immunologic, Gastrointestinal, Genitourinary, Musculoskeletal, Integumentary, Endocrine and E yes/Ears/Nose/Throat Exam Surgical H&P Exam: Normal: HEENT, Normal: Heart, Normal: Lungs, Normal: Extremities, Normal: Abdomen, Normal: Skin and Normal: Neurological Plan Diagnosis/Plan: Unchanged I have reviewed the history and physical and performed a pertinent physical examination on my patient. No changes have occurred unless specified.
--- NOTE | 2021-04-06 14:17 | P.OP_ITS ---
Operative Note Operative Note Date of Service: 04/06/21 Narrative: Operative Information Procedure Description: Colonoscopy COLONOSCOPY Instrument: Olympus variable stiffness pediatric scope 190L Colonoscopy Monitoring: Vital signs and clinical assessment, continuous EKG monitoring, Pulse oximetry, Carbon Dioxide monitoring and blood pressure monitoring were done throughout the procedure. Colon withdrawal time was 12 minutes. Procedure: The patient was placed in the left lateral decubitis position and pre-procedure medications were administered. After a digital rectal examination of the ano-rectum, the video colonoscope was inserted into the rectum and advanced through the colon to the cecum/TI. The colonoscope was slowly withdrawn in a retrograde panoramic fashion and the colon mucosa was carefully examined including a retroflexed view of the rectum. Findings and interventions are described below. Procedure Difficulty:easy Findings: Terminal Ileum-normal Cecum:normal Ascending Colon: normal Transverse Colon -normal Descending Colon:normal Sigmoid Colon: normal Rectum: Retroflexion with small internal hemorrhoids, grade I Anorectum - normal Colon preparation: [place] Bowel Preparation Scale Right colon; 2 Transverse colon: 3 Left colon; 2 (0 = Unprepared colon segment with mucosa not seen due to solid stool that cannot be cleared. 1 = Portion of mucosa of the colon segment seen, but other areas of the colon segment not well seen due to staining, residual stool and/or opaque liquid. 2 = Minor amount of residual staining, small fragments of stool and/or opaque liquid, but mucosa of colon segment seen well. 3 = Entire mucosa of colon segment seen well with no residual staining, small fragments of stool or opaque liquid) Impression and Post Procedure Diagnosis: internal hemorrhoids Plan: High fiber diet leaflet Avoid straining at stool, epsom salts and sitz bath, anusol supps or cream Repeat Colonoscopy in 10 years or earlier if clinically indicated Above findings were reviewed with the patient and relevant handouts were provided if indicated.
--- NOTE | 2021-04-06 14:17 | PM.OP ---
Brief Operative Note Date of Service: 04/06/21 Pre-op diagnosis: colon screening Post-op diagnosis: same Procedure: see op note Surgeon: Rudy Hahn MD Anesthesia: MAC Was an Engine Maintenance Mechanic used for this Procedure?: No Estimated blood loss (mL): 0 Condition: stable Disposition: PACU
[2021-04-06 14:47] VITALS: BP 97/63; PULSE 99; RESP 16; TEMP 36.2; O2SAT 96
[2021-04-06 15:02] VITALS: BP 109/73; PULSE 78; RESP 16; O2SAT 98
== END 2021-04-06 15:36 | disposition home or self-care (01) ==
PROVIDERS: PCP Internal Medicine; Visit Provider Internal Medicine Gastroenterology
PROC: 0DJD8ZZ Inspection of Lower Intestinal Tract, Via Natural or Artificial Opening Endoscopic (ICD-10-PCS; CPT 45378; principal; 2021-04-06 14:30)
DX: Z12.11 Encounter for screening for malignant neoplasm of colon (principal); K64.0 First degree hemorrhoids; R10.9 Unspecified abdominal pain; G89.29 Other chronic pain; M54.9 Dorsalgia, unspecified; Z86.16 Personal history of COVID-19; Z88.2 Allergy status to sulfonamides
CPT/HCPCS: 45378

== ENCOUNTER 2022-06-05 09:35 | Outpatient (REF) | payer OTHER, SELFPAY ==
[2022-06-05 11:31] LABS: MANUAL DIFF FLAG NO
[2022-06-05 11:40] LABS: Basophils Absolute Auto 0.1 X10*3/uL (0.0-0.2); Eosinophils Absolute Auto 0.1 X10*3/uL (0.0-0.4); Eosinophils Percent Auto 2.1 % (0-4); Hematocrit 43.2 % (37.0-47.0); Hemoglobin 14.6 g/dl (12.0-16.0); Imm Gran Abs Auto 0.01 X10*3/uL (0.00-0.03); Imm Gran Pct Auto 0.2 % (0.0-0.4); Lymphocytes Absolute Auto 1.8 X10*3/uL (1.2-4.9); Lymphocytes Percent Auto 34.5 % (20-40); Mean Corpuscular HGB Conc 33.8 g/dl (31.0-35.0); Mean Corpuscular Hemoglobin 30.2 pg (27.0-33.0); Mean Corpuscular Volume 89.4 fL (80.0-98.0); Mean Platelet Volume 9.4 fL (9.4-12.3); Monocytes Absolute Auto 0.3 X10*3/uL (0.1-1.2); Monocytes Percent Auto 6.5 % (2-11); Neutrophils Absolute Auto 2.9 x10*3/uL (2.0-8.3); Neutrophils Percent Auto 55.7 % (45-73); Platelet Count 270 X10*3/uL (160-400); Red Blood Count 4.83 X10*6/uL (4.20-5.50); Red Cell Distribution Width 12.1 % (11.0-16.0); White Blood Count 5.3 X10*3/uL (4.8-10.8)
[2022-06-05 12:14] LABS: Alanine Aminotransferase 19 U/L (0-31); Albumin Level 4.6 g/dL (3.5-5.0); Alkaline Phosphatase 58 U/L (39-117); Anion Gap 12 (12-20); Aspartate Amino Transferase 19 U/L (5-31); Blood Urea Nitrogen 13 mg/dL (9-16); Calcium 10.1 mg/dL (8.4-10.2); Carbon Dioxide 29 mmol/L (22-29); Chloride 106 mmol/L (96-108); Estimated Glomerular Filt Rate > 60; Glucose Fasting 99 mg/dL (60-99); Lipase 14 U/L (8-78); Potassium 5.3 mmol/L (3.3-5.1); Sodium 142 mmol/L (135-145); Total Protein 7.3 g/dL (6.5-8.0)
[2022-06-05 12:21] LABS: Amylase 32 U/L (28-100)
== END 2022-06-05 09:36 | disposition home or self-care (01) ==
LOC: HO.HMGCLDS 09:35
PROVIDERS: PCP Internal Medicine; Visit Provider Nurse Practitioner Family
DX: R10.9 Unspecified abdominal pain (principal)
CPT/HCPCS: 36415; 80053; 82150; 83690; 85025

== ENCOUNTER 2022-07-12 06:44 | Emergency (ER) | payer OTHER, SELFPAY ==
--- NOTE | ~2022-07-12 | XR_ITS ---
EXAMINATION: XR CHEST CLINICAL INFORMATION: Chest pain COMPARISON: 09/28/2020 TECHNIQUE: Frontal view of the chest was obtained. FINDINGS: Cardiac leads overlie the chest. The lungs are well expanded. There is no focal consolidation, edema, or effusion. No pneumothorax. The cardiomediastinal silhouette is within normal limits. No acute osseous abnormality. XR/XR chest 1V IMPRESSION: Clear lungs.
--- NOTE | 2022-07-12 07:06 | ED_ITS ---
HPI - Chest Pain General Chief Complaint: Arrhythmia/Palpitations Stated Complaint: CP, Elevated Heart Rate, COVID + Time Seen by Provider: 07/12/22 07:05 Source: patient Mode of arrival: ambulatory Limitations: no limitations History of Present Illness HPI narrative: 61 yo female with no sig PMH was dx with COVID in past required O2 in past while in hospital x 3 days, she is vaccinated x 2 with Pfizer notes on Saturday developed runny nose and tested positive that day. She took theraflu before bed has really only had URI symptoms no CP/SOB until 5am today she woke up with some chest pain L side and central with HR in 140s without a fever. Came to ED. complaint: chest pain Onset (ago): hour(s) (2) Timing of current episode: other (improving) Prior episodes: No Onset: during rest Pain location: substernal and left chest Pain radiation: none Severity: mild Quality: tightness Relieving factors: nothing Exacerbating factors: nothing Context: recent illness Associated symptoms: dyspnea Treatment prior to arrival: aspirin Related Data Previous Rx's Medication Instructions Recorded omeprazole 20 mg capsule,delayed 20 mg PO DAILY 14 days #14 caps 06/05/22 release Allergies Allergy/AdvReac Type Severity Reaction Status Date / Time sulfamethoxazole Allergy Intermediate HIVES Verified 06/05/22 09:21 [From BACTRIM] trimethoprim [From BACTRIM] Allergy Intermediate HIVES Verified 06/05/22 09:21 Sulfa (Sulfonamide Allergy Unknown rash Verified 06/05/22 09:21 Antibiotics) Review of Systems Review of Systems: Constitutional : No Weight loss, No Fever, No Chills ENT/Mouth : No sore throat, pos Rhinorrhea Eyes: No Eye Pain, No Swelling Cardiovascular : pos Chest Pain, pos SOB, no Dyspnea on Exertion, No Orthopnea, No Edema, pos Palpitations Respiratory : No Cough, No Sputum Gastrointestinal : pos Nausea, No Vomiting, No Diarrhea, No abdominal Pain, No Hematochezia, No Melena Genitourinary : No Dysuria, No Urinary Frequency Musculoskeletal : No joint pain, No Myalgias, No Joint Swelling Skin : No Skin Lesions, No rash Neuro : No Weakness, No Numbness, No Dizziness, No Headache Psych : No Anxiety/Panic, No Depression Heme/Lymph: No Bruising, No Lymphadenopathy Endocrine : No Polyuria, No Polydipsia All other systems reviewed and are negative [facility] Past Medical History Attestation statement: The following information was validated with the patient. Medical History Abdominal pain Annual physical exam Back pain COVID-19 Detached retina, left Shoulder pain, left Surgical History H/O colonoscopy H/O esophagogastroduodenoscopy Family History Family History Father HTN (hypertension) Cancer Paternal Grandfather Heart attack Mother Infectious thyroiditis Alzheimer disease Maternal Grandmother Diabetes Social History Social History Household Members: None Housing: Apartment Do you presently have visiting nurse or other home services: No Alcohol intake: current Alcohol intake frequency: a few times a week Patient Tobacco Use Status: Former Tobacco user Second Hand Smoke Exposure: No Use of substances other than those prescribed or required for medical reasons: No Advance Directives: Yes Advance Directives Information Provided: Yes Advance Directives on File: No Patient : No service: No Current occupational status: employed Physical Exam Vital Signs: Vital Signs: Last Vital Signs Temp 98.2 F 07/12/22 10:44 Pulse 99 07/12/22 10:44 Resp 20 07/12/22 10:44 BP 128/80 07/12/22 10:44 Pulse Ox 97 07/12/22 10:44 O2 Del Method 07/12/22 10:44 BMI result Body Mass Index 23.6 Appearance: Alert. Oriented X3. No acute distress. Eyes: Pupils equal, round and reactive to light. ENT: Pharynx normal. Neck: Normal inspection. Neck supple. CVS: Normal heart rate and rhythm. Pulses normal. Respiratory: No respiratory distress. Breath sounds normal. Abdomen: Soft and non-tender. Skin: Skin warm and dry. Normal skin color. Normal skin turgor. Extremities: No lower extremity edema. No calf ttp Neuro: Oriented X 3. No motor deficit. No sensory deficit. Course Course Course Narrative: CXR, ddimer, EKG and 2 trop negative stable for DC negative workup MDM - Chest Pain MDM Narrative Medical decision making narrative: 61 yo female recent COVID dx on Saturday vaccinated x 2 - CP at 5am this morning with palpitations HR up to 140 will put on tele obtain troponin x 2, ddimer. CXR. She is not hypoxic. Dispo per results and findings. Could be fever vs med related vs viral illness ACS seems unlikely. VTE possible ddimer ordered. Lab Data Result diagrams: 07/12/22 07:52 07/12/22 07:52 Labs: Lab Results 07/12/22 07/12/22 07/12/22 Range/Units 07:52 07:52 07:52 WBC 8.7 (4.8-10.8) X10*3/uL RBC 4.32 (4.20-5.50) X10*6/uL Hgb 13.5 (12.0-16.0) g/dl Hct 40.2 (37.0-47.0) % MCV 93.1 (80.0-98.0) fL MCH 31.3 (27.0-33.0) pg MCHC 33.6 (31.0-35.0) g/dl RDW 12.1 (11.0-16.0) % Plt Count 206 (160-400) X10*3/uL MPV 8.7 L (9.4-12.3) fL Immature Gran % (Auto) 0.3 (0.0-0.4) % Neut % (Auto) 81.4 H (45-73) % Lymph % (Auto) 9.7 L (20-40) % [place] % (Auto) 6.9 (2-11) % Eos % (Auto) 1.2 (0-4) % Baso % (Auto) 0.5 (0-2) % Lymph # (Auto) 0.8 L (1.2-4.9) X10*3/uL [place] # (Auto) 0.6 (0.1-1.2) X10*3/uL Eos # (Auto) 0.1 (0.0-0.4) X10*3/uL Baso # (Auto) 0.0 (0.0-0.2) X10*3/uL Abs Immat Gran (auto) 0.03 (0.00-0.03) X10*3/uL Absolute Neuts (auto) 7.1 (2.0-8.3) x10*3/uL Absolute Nucleated RBC 0.000 (0.0-0.012) X10*3/uL Nucleated RBC % (auto) 0.0 (0.0-0.2) /100WBC D-Dimer High Sensitivty < 150 NG/ML Sodium 144 (135-145) mmol/L Potassium 4.4 (3.3-5.1) mmol/L Chloride 106 (96-108) mmol/L Carbon Dioxide 27 (22-29) mmol/L Anion Gap 15 (12-20) BUN 5 L D (9-16) mg/dL Creatinine 0.74 (0.5-1.4) mg/dL Estim Creat Clear Calc 79.5 Estimated GFR > 60 Random Glucose 108 (60-115) mg/dL Calcium 9.5 (8.4-10.2) mg/dL Magnesium 2.0 (1.6-2.6) mg/dL Total Bilirubin 0.5 (0.0-1.0) mg/dL Direct Bilirubin 0.3 (0.0-0.5) mg/dL AST 15 (5-31) U/L ALT 10 (0-31) U/L Alkaline Phosphatase 63 (39-117) U/L Troponin I High Sens (<3.5-17.0) ng/L Total Protein 6.7 (6.5-8.0) g/dL Albumin 4.2 (3.5-5.0) g/dL TSH (0.32-4.0) uIU/mL 07/12/22 07/12/22 07/12/22 Range/Units 07:52 07:52 10:40 WBC (4.8-10.8) X10*3/uL RBC (4.20-5.50) X10*6/uL Hgb (12.0-16.0) g/dl Hct (37.0-47.0) % MCV (80.0-98.0) fL MCH (27.0-33.0) pg MCHC (31.0-35.0) g/dl RDW (11.0-16.0) % Plt Count (160-400) X10*3/uL MPV (9.4-12.3) fL Immature Gran % (Auto) (0.0-0.4) % Neut % (Auto) (45-73) % Lymph % (Auto) (20-40) % [place] % (Auto) (2-11) % Eos % (Auto) (0-4) % Baso % (Auto) (0-2) % Lymph # (Auto) (1.2-4.9) X10*3/uL [place] # (Auto) (0.1-1.2) X10*3/uL Eos # (Auto) (0.0-0.4) X10*3/uL Baso # (Auto) (0.0-0.2) X10*3/uL Abs Immat Gran (auto) (0.00-0.03) X10*3/uL Absolute Neuts (auto) (2.0-8.3) x10*3/uL Absolute Nucleated RBC (0.0-0.012) X10*3/uL Nucleated RBC % (auto) (0.0-0.2) /100WBC D-Dimer High Sensitivty NG/ML Sodium (135-145) mmol/L Potassium (3.3-5.1) mmol/L Chloride (96-108) mmol/L Carbon Dioxide (22-29) mmol/L Anion Gap (12-20) BUN (9-16) mg/dL Creatinine (0.5-1.4) mg/dL Estim Creat Clear Calc Estimated GFR Random Glucose (60-115) mg/dL Calcium (8.4-10.2) mg/dL Magnesium (1.6-2.6) mg/dL Total Bilirubin (0.0-1.0) mg/dL Direct Bilirubin (0.0-0.5) mg/dL AST (5-31) U/L ALT (0-31) U/L Alkaline Phosphatase (39-117) U/L Troponin I High Sens < 3.5 < 3.5 (<3.5-17.0) ng/L Total Protein (6.5-8.0) g/dL Albumin (3.5-5.0) g/dL TSH 1.38 (0.32-4.0) uIU/mL ECG Data ECG #1: Attestation: I personally reviewed and interpreted this ECG as follows: ECG interpretation date: 07/12/22 ECG interpretation time: 07:21 Interpretation: Rate: 100 Rhythm: sinus tachycardia [place]: normal Normal P waves. Normal [place]. Normal QRS complex. ST T wave : nonspecific, no KASSY qTC: normal prior studies: no acute ischemia The study has been interpreted contemporaneously by me. . Discharge Plan Discharge Clinical Impression: Palpitations, Atypical chest pain Patient Disposition: Home, Self-Care Instructions: Chest Pain (ED), Heart Palpitations (ED) Additional Instructions: return to ED for any worsening symptoms or concerns negative blood clot, heart tests and CXR Prescriptions: No Action omeprazole 20 mg capsule,delayed release(DR/EC) 20 mg PO DAILY 14 Days Qty: 14 0RF Referrals: Kristine Nielson MD [Primary Care Provider] - 5 days (may need holter monitor)
[2022-07-12 07:14] VITALS: BP 137/86; PULSE 107; RESP 18; TEMP 36.9; O2SAT 96; BMI 23.6
[2022-07-12 07:38] VITALS: BP 125/76; PULSE 96; RESP 16; TEMP 36.7; O2SAT 94
[2022-07-12 07:57] LABS: MANUAL DIFF FLAG NO
[2022-07-12 08:00] LABS: Basophils Percent Auto 0.5 % (0-2); Eosinophils Absolute Auto 0.1 X10*3/uL (0.0-0.4); Eosinophils Percent Auto 1.2 % (0-4); Hematocrit 40.2 % (37.0-47.0); Hemoglobin 13.5 g/dl (12.0-16.0); Imm Gran Abs Auto 0.03 X10*3/uL (0.00-0.03); Imm Gran Pct Auto 0.3 % (0.0-0.4); Lymphocytes Absolute Auto 0.8 X10*3/uL (1.2-4.9); Lymphocytes Percent Auto 9.7 % (20-40); Mean Corpuscular HGB Conc 33.6 g/dl (31.0-35.0); Mean Corpuscular Hemoglobin 31.3 pg (27.0-33.0); Mean Corpuscular Volume 93.1 fL (80.0-98.0); Mean Platelet Volume 8.7 fL (9.4-12.3); Monocytes Absolute Auto 0.6 X10*3/uL (0.1-1.2); Monocytes Percent Auto 6.9 % (2-11); Neutrophils Absolute Auto 7.1 x10*3/uL (2.0-8.3); Neutrophils Percent Auto 81.4 % (45-73); Platelet Count 206 X10*3/uL (160-400); Red Blood Count 4.32 X10*6/uL (4.20-5.50); Red Cell Distribution Width 12.1 % (11.0-16.0); White Blood Count 8.7 X10*3/uL (4.8-10.8)
[2022-07-12 08:14] LABS: D Dimer High Sensitivity < 150 NG/ML
[2022-07-12 08:19] LABS: Alanine Aminotransferase 10 U/L (0-31); Albumin Level 4.2 g/dL (3.5-5.0); Alkaline Phosphatase 63 U/L (39-117); Anion Gap 15 (12-20); Aspartate Amino Transferase 15 U/L (5-31); Bilirubin Direct 0.3 mg/dL (0.0-0.5); Bilirubin Total 0.5 mg/dL (0.0-1.0); Blood Urea Nitrogen 5 mg/dL (9-16); Calcium 9.5 mg/dL (8.4-10.2); Carbon Dioxide 27 mmol/L (22-29); Chloride 106 mmol/L (96-108); Creatinine Clr Calc Pharmacy 79.5; Estimated Glomerular Filt Rate > 60; Glucose Random 108 mg/dL (60-115); Potassium 4.4 mmol/L (3.3-5.1); Sodium 144 mmol/L (135-145); Total Protein 6.7 g/dL (6.5-8.0)
[2022-07-12 08:22] LABS: Troponin-I High Sensitivity < 3.5 ng/L (<3.5-17.0)
[2022-07-12 08:40] LABS: TSH reflex Free T4 1.38 uIU/mL (0.32-4.0)
[2022-07-12 10:44] VITALS: BP 128/80; PULSE 99; RESP 20; TEMP 36.8; O2SAT 97
[2022-07-12 11:19] LABS: Troponin-I High Sensitivity < 3.5 ng/L (<3.5-17.0)
--- NOTE | 2022-07-13 07:42 | ECG_ITS ---
Test Reason : CHEST PAIN Blood Pressure : / mmHG Vent. Rate : 100 BPM Atrial Rate : 100 BPM P-R Int : 148 ms QRS Dur : 072 ms QT Int : 334 ms P-R-T Axes : 073 047 040 degrees QTc Int : 430 ms Normal sinus rhythm Normal ECG When compared with ECG of 31-DEC-2020 16:39, No significant change was found Referred By: Ria Devries Electronically Signed By:YARON STOREY MD
== END 2022-07-12 12:22 | disposition home or self-care (01) ==
PROVIDERS: Emergency Provider Emergency Medicine; PCP Internal Medicine
DX: U07.1 COVID-19 (principal); R07.89 Other chest pain; R00.2 Palpitations; R00.0 Tachycardia, unspecified; Z79.899 Other long term (current) drug therapy
CPT/HCPCS: 36415; 71045; 80048; 80076; 83735; 84443; 84484; 85025; 85379; 93005; 99283; 99285

== ENCOUNTER 2022-09-09 20:51 | Emergency (ER) | payer OTHER, SELFPAY ==
--- NOTE | ~2022-09-09 | XR_ITS ---
EXAMINATION: CHEST 2 VIEWS CLINICAL INFORMATION: chest pain . COMPARISON: No recent pertinent prior studies are available for comparison. TECHNIQUE: PA and lateral views of the chest obtained. FINDINGS: The lungs are well expanded. No focal infiltrate, effusion, edema, or pneumothorax. Cardiac and mediastinal silhouettes are within normal limits for technique. Pectus excavatum deformity to the chest noted. Old healed left mid clavicular fracture. No acute bony abnormality seen XR/XR chest 2V IMPRESSION: No evidence of acute disease
--- NOTE | 2022-09-09 20:53 | ECG_ITS ---
Test Reason : CHEST TIGHTNESS/RACING Blood Pressure : / mmHG Vent. Rate : 096 BPM Atrial Rate : 096 BPM P-R Int : 154 ms QRS Dur : 078 ms QT Int : 358 ms P-R-T Axes : 082 053 061 degrees QTc Int : 452 ms Normal sinus rhythm Possible Left atrial enlargement Nonspecific ST abnormality Abnormal ECG When compared with ECG of 12-JUL-2022 06:50, No significant change was found Referred By: Anne Emery Electronically Signed By:Vaughn Villareal
[2022-09-09 20:55] VITALS: BP 172/96; PULSE 108; RESP 18; TEMP 36.2; O2SAT 98; BMI 23.6
[2022-09-09 21:11] VITALS: BP 140/76; PULSE 99; RESP 18; TEMP 36.8; O2SAT 98
--- NOTE | 2022-09-09 21:14 | PC.NURSE ---
Care of patient assumed in main ED. She is alert, oriented x4. She endorses chest pressure and palpitations that began over the weekend. She denies chest pain, but +chest pressure. She denies nausea, vomiting, or dizziness. She states a few weeks she was seen in the ED for right-sided back pulling and was told it was musculoskeletal and discharged. EKG complete at triage with ?changes. HR NSR/ST 90s-low 100s on telemetry.
[2022-09-09 21:20] LABS: MANUAL DIFF FLAG NO
[2022-09-09 21:21] LABS: Basophils Absolute Auto 0.1 X10*3/uL (0.0-0.2); Basophils Percent Auto 0.7 % (0-2); Eosinophils Absolute Auto 0.2 X10*3/uL (0.0-0.4); Eosinophils Percent Auto 2.5 % (0-4); Hematocrit 41.1 % (37.0-47.0); Imm Gran Abs Auto 0.02 X10*3/uL (0.00-0.03); Imm Gran Pct Auto 0.3 % (0.0-0.4); Lymphocytes Absolute Auto 2.8 X10*3/uL (1.2-4.9); Lymphocytes Percent Auto 37.8 % (20-40); Mean Corpuscular HGB Conc 34.1 g/dl (31.0-35.0); Mean Corpuscular Hemoglobin 30.8 pg (27.0-33.0); Mean Corpuscular Volume 90.5 fL (80.0-98.0); Mean Platelet Volume 8.8 fL (9.4-12.3); Monocytes Absolute Auto 0.5 X10*3/uL (0.1-1.2); Monocytes Percent Auto 6.7 % (2-11); Neutrophils Absolute Auto 3.9 x10*3/uL (2.0-8.3); Platelet Count 249 X10*3/uL (160-400); Red Blood Count 4.54 X10*6/uL (4.20-5.50); Red Cell Distribution Width 12.3 % (11.0-16.0); White Blood Count 7.5 X10*3/uL (4.8-10.8)
[2022-09-09 21:32] LABS: D Dimer High Sensitivity < 150 NG/ML
[2022-09-09 21:43] LABS: Alanine Aminotransferase 16 U/L (0-31); Albumin Level 4.5 g/dL (3.5-5.0); Alkaline Phosphatase 67 U/L (39-117); Anion Gap 14 (12-20); Aspartate Amino Transferase 18 U/L (5-31); Bilirubin Total 0.4 mg/dL (0.0-1.0); Blood Urea Nitrogen 17 mg/dL (9-16); Calcium 9.8 mg/dL (8.4-10.2); Carbon Dioxide 25 mmol/L (22-29); Chloride 105 mmol/L (96-108); Creatinine Clr Calc Pharmacy 70.8; Estimated Glomerular Filt Rate > 60; Glucose Random 129 mg/dL (60-115); Potassium 3.7 mmol/L (3.3-5.1); Sodium 140 mmol/L (135-145)
--- NOTE | 2022-09-09 21:43 | ED_ITS ---
HPI - Arrhythmia/Palpitations General Chief Complaint: Arrhythmia/Palpitations Stated Complaint: cp Time Seen by Provider: 09/09/22 21:13 Source: patient Mode of arrival: ambulatory History of Present Illness HPI narrative: 61-year-old female without significant past medical history presents with complaints of heart palpitations that have been progressively worsening over the weekend, there is no time of day association, no medication changes, no new [id number] medications, and patient states she has continued to consume the typical amount of caffeine as usual. She otherwise denies any fever, chills, nausea, vomiting, diarrhea and denies any urinary symptoms. Related Data Allergies Allergy/AdvReac Type Severity Reaction Status Date / Time sulfamethoxazole Allergy Intermediate HIVES Verified 08/13/22 15:04 [From BACTRIM] trimethoprim [From BACTRIM] Allergy Intermediate HIVES Verified 08/13/22 15:04 Sulfa (Sulfonamide Allergy Unknown rash Verified 08/13/22 15:04 Antibiotics) Review of Systems Review of Systems: Pertinent positives and negatives as stated in HPI 10 point review of systems otherwise negative. PMFSH Past Medical History Source: nursing notes reviewed Medical History Abdominal pain Annual physical exam Back pain COVID-19 Detached retina, left Shoulder pain, left Surgical History H/O colonoscopy H/O esophagogastroduodenoscopy Family History Family History Father HTN (hypertension) Cancer Paternal Grandfather Heart attack Mother Infectious thyroiditis Alzheimer disease Maternal Grandmother Diabetes Social History Social History Household Members: None Housing: Apartment Do you presently have visiting nurse or other home services: No Alcohol intake: current Alcohol intake frequency: a few times a week Patient Tobacco Use Status: Former Tobacco user Second Hand Smoke Exposure: No Advance Directives: No Advance Directives Information Provided: No service: No Current occupational status: employed Physical Exam Vital Signs: Vital Signs: Last Vital Signs Temp 97.8 F 09/09/22 22:03 Pulse 90 09/09/22 22:03 Resp 18 09/09/22 21:11 BP 131/67 09/09/22 22:03 Pulse Ox 98 09/09/22 22:03 O2 Del Method 09/09/22 22:03 BMI result Body Mass Index 23.6 VITAL SIGNS: Reviewed. GENERAL: Well developed, well nourished, in no acute distress. HEAD: Normocephalic/atraumatic EYES: OD- PERRLA, EOMI, OS- Blind EARS: Ext canals without abnormality OROPHARYNX: no oral lesions noted, posterior pharynx clear NECK: Supple, no adenopathy LUNGS: Normal breath sounds. No adventitious sounds or accessory muscle use. SpO2<98> CARDIOVASCULAR: Regular rate and rhythm without noted murmurs ABDOMEN: Soft, non-tender, non-distended with bowel sounds. MUSCULOSKELETAL: No tenderness, deformities, or effusions noted on gross inspection. EXTREMITIES: No cyanosis, clubbing or edema. SKIN: Inspection of the skin reveals no rashes NEUROLOGIC: Alert and oriented x 4. Strength and sensation to light touch were grossly intact x 4. Course Course Course Narrative: 61-year-old female with history and clinical presentation suspected to be benign in nature, but will rule out infection, anemia, electrolyte disturbance as well as rechecking TSH. EKG, imaging, all lab work reviewed and there is no evidence to suggest infection, anemia, electrolyte abnormality and although the TSH is mildly elevated it is inconsistent with heart palpitations. All results discussed with patient at bedside and she was discharged home with instructions to follow-up with primary care provider and also given a referral to Cardiology for discussion regarding a Holter monitor Medical Decision Making Lab Data Result Diagrams: 09/09/22 21:12 09/09/22 21:12 Labs: Lab Results 09/09/22 09/09/22 09/09/22 Range/Units 21:12 21:12 21:12 WBC 7.5 (4.8-10.8) X10*3/uL RBC 4.54 (4.20-5.50) X10*6/uL Hgb 14.0 (12.0-16.0) g/dl Hct 41.1 (37.0-47.0) % MCV 90.5 (80.0-98.0) fL MCH 30.8 (27.0-33.0) pg MCHC 34.1 (31.0-35.0) g/dl RDW 12.3 (11.0-16.0) % Plt Count 249 (160-400) X10*3/uL MPV 8.8 L (9.4-12.3) fL Immature Gran % (Auto) 0.3 (0.0-0.4) % Neut % (Auto) 52.0 (45-73) % Lymph % (Auto) 37.8 (20-40) % [place] % (Auto) 6.7 (2-11) % Eos % (Auto) 2.5 (0-4) % Baso % (Auto) 0.7 (0-2) % Lymph # (Auto) 2.8 (1.2-4.9) X10*3/uL [place] # (Auto) 0.5 (0.1-1.2) X10*3/uL Eos # (Auto) 0.2 (0.0-0.4) X10*3/uL Baso # (Auto) 0.1 (0.0-0.2) X10*3/uL Abs Immat Gran (auto) 0.02 (0.00-0.03) X10*3/uL Absolute Neuts (auto) 3.9 (2.0-8.3) x10*3/uL Absolute Nucleated RBC 0.000 (0.0-0.012) X10*3/uL Nucleated RBC % (auto) 0.0 (0.0-0.2) /100WBC D-Dimer High Sensitivty NG/ML Sodium 140 (135-145) mmol/L Potassium 3.7 (3.3-5.1) mmol/L Chloride 105 (96-108) mmol/L Carbon Dioxide 25 (22-29) mmol/L Anion Gap 14 (12-20) BUN 17 H (9-16) mg/dL Creatinine 0.86 (0.5-1.4) mg/dL Estim Creat Clear Calc 70.8 Estimated GFR > 60 Random Glucose 129 H (60-115) mg/dL Calcium 9.8 (8.4-10.2) mg/dL Magnesium 2.0 (1.6-2.6) mg/dL Total Bilirubin 0.4 (0.0-1.0) mg/dL AST 18 (5-31) U/L ALT 16 (0-31) U/L Alkaline Phosphatase 67 (39-117) U/L Troponin I High Sens < 3.5 (<3.5-17.0) ng/L Total Protein 7.0 (6.5-8.0) g/dL Albumin 4.5 (3.5-5.0) g/dL TSH 5.32 H (0.32-4.0) uIU/mL Influenza Type A (PCR) (Negative) Influenza Type B (PCR) (Negative) RSV RNA Qual (PCR) (Negative) SARS-CoV-2 RNA (RT-PCR) (Negative) 09/09/22 09/09/22 Range/Units 21:12 21:14 WBC (4.8-10.8) X10*3/uL RBC (4.20-5.50) X10*6/uL Hgb (12.0-16.0) g/dl Hct (37.0-47.0) % MCV (80.0-98.0) fL MCH (27.0-33.0) pg MCHC (31.0-35.0) g/dl RDW (11.0-16.0) % Plt Count (160-400) X10*3/uL MPV (9.4-12.3) fL Immature Gran % (Auto) (0.0-0.4) % Neut % (Auto) (45-73) % Lymph % (Auto) (20-40) % [place] % (Auto) (2-11) % Eos % (Auto) (0-4) % Baso % (Auto) (0-2) % Lymph # (Auto) (1.2-4.9) X10*3/uL [place] # (Auto) (0.1-1.2) X10*3/uL Eos # (Auto) (0.0-0.4) X10*3/uL Baso # (Auto) (0.0-0.2) X10*3/uL Abs Immat Gran (auto) (0.00-0.03) X10*3/uL Absolute Neuts (auto) (2.0-8.3) x10*3/uL Absolute Nucleated RBC (0.0-0.012) X10*3/uL Nucleated RBC % (auto) (0.0-0.2) /100WBC D-Dimer High Sensitivty < 150 NG/ML Sodium (135-145) mmol/L Potassium (3.3-5.1) mmol/L Chloride (96-108) mmol/L Carbon Dioxide (22-29) mmol/L Anion Gap (12-20) BUN (9-16) mg/dL Creatinine (0.5-1.4) mg/dL Estim Creat Clear Calc Estimated GFR Random Glucose (60-115) mg/dL Calcium (8.4-10.2) mg/dL Magnesium (1.6-2.6) mg/dL Total Bilirubin (0.0-1.0) mg/dL AST (5-31) U/L ALT (0-31) U/L Alkaline Phosphatase (39-117) U/L Troponin I High Sens (<3.5-17.0) ng/L Total Protein (6.5-8.0) g/dL Albumin (3.5-5.0) g/dL TSH (0.32-4.0) uIU/mL Influenza Type A (PCR) NEGATIVE (Negative) Influenza Type B (PCR) NEGATIVE (Negative) RSV RNA Qual (PCR) NEGATIVE (Negative) SARS-CoV-2 RNA (RT-PCR) NEGATIVE (Negative) Independent Interpretation I performed an independent interpretation of an: EKG Interpretation: Normal sinus rhythm, HR-96, no STEMI, [place]/QRS/QTC is within normal limits. Discharge Plan Discharge Clinical Impression: Heart palpitations Patient Disposition: Home, Self-Care Instructions: Heart Palpitations (ED) Additional Instructions: Follow-up with your primary care provider by calling the office 1st thing in the morning and setting up an appointment for re-evaluation further outpatient management. You have been given a referral to follow-up with cardiology and should call the office to set up an appointment. Referrals: Kristine Nielson MD [Primary Care Provider] - Toibn Wolf MD [Physician] -
[2022-09-09 21:52] LABS: Troponin-I High Sensitivity < 3.5 ng/L (<3.5-17.0)
[2022-09-09 21:58] LABS: Influenza A PCR NEGATIVE (Negative); Influenza B PCR NEGATIVE (Negative); Resp Syncy Virus RNA Qual PCR NEGATIVE (Negative); SARS COV2 PCR INHOUSE NEGATIVE (Negative)
[2022-09-09 22:03] VITALS: BP 131/67; PULSE 90; TEMP 36.6; O2SAT 98
[2022-09-09 22:38] LABS: Thyroid Stimulating Hormone 5.32 uIU/mL (0.32-4.0)
== END 2022-09-10 00:11 | disposition home or self-care (01) ==
PROVIDERS: Emergency Provider Student in an Organized Health Care Education/Training Program; PCP Internal Medicine
DX: I49.9 Cardiac arrhythmia, unspecified (principal); R00.2 Palpitations; Z20.822 Contact with and (suspected) exposure to COVID-19; Z79.899 Other long term (current) drug therapy
CPT/HCPCS: 0241U; 36415; 71046; 80053; 83735; 84443; 84484; 85025; 85379; 93005; 99283

== ENCOUNTER → 2022-09-19 10:24 | Outpatient (BNVA) | payer OTHER, SELFPAY | PROVIDERS: PCP Internal Medicine; Referring Provider Internal Medicine; Visit Provider Internal Medicine | DX: R00.2 Palpitations (principal) ==

== ENCOUNTER → 2022-10-02 08:31 | Outpatient (REF) | payer OTHER, SELFPAY ==
--- NOTE | 2022-10-02 08:34 | CA_ITS ---
Transthoracic Echocardiogram Patient (Last, First, Middle): Lida Alas E Gender: Female Date of : 1960 Age: 61 Procedure Date: 10/02/2022 Procedure Type: Transthoracic Echocardiogram Location: OP Height: 172.72 cm Weight: 74.84 kg BSA: 1.88 m2 Heart Rate: bpm BP: 124 / 60 mmHg Economic Developer: Referring MD: Tobin Wolf MD Symptoms: R00.2 - Palpitations Study Quality: Good ECG Rhythm: Sinus Conclusions: - The left ventricular systolic function is normal. The calculated ejection fraction is 57% by biplane method. - No obvious valvular pathology seen on this study. Findings Left Ventricle Normal left ventricular cavity size. There is normal left ventricular wall thickness. The left ventricular systolic function is normal. The calculated ejection fraction is 57% by biplane method. There is no evidence of regional wall motion abnormalities. Diastolic function is normal for age. Right Ventricle Normal right ventricular cavity size and systolic function. Atria Both atria are normal in size. Aortic Valve There is a normal trileaflet aortic valve. There is no aortic valve stenosis. There is no aortic valve regurgitation. Mitral Valve The mitral valve appears normal. There is no mitral valve regurgitation. There is no mitral valve stenosis. Pulmonic Valve The pulmonic valve is likely normal. Tricuspid Valve Normal tricuspid valve structure. There is trace tricuspid valve regurgitation. There is no evidence of pulmonary hypertension. Great Vessels The asc aorta is normal in size. Venous The inferior vena cava is normal in size and collapses greater than 50% with inspiration. Pericardium/Pleural There is no evidence of pericardial effusion. Prior Study Comparison No significant change compared to prior study dated: 11/09/2014. Recommendations, Care & Conclusions No obvious valvular pathology seen on this study. Measurements 2D Linear Measurements IVSd: 1.00 0.6-0.9/0.6-1.0 cm LVIDd: 3.65 3.9-5.3/4.2-5.9 cm LVIDd Index: 1.94 2.4-3.2/2.2-3.1 cm/m2 LVIDs: 2.33 2.0-3.6 cm LVPWd: 0.97 0.7-1.1 cm Ao Root: 2.80 2.1-3.5 cm LA Diam: 2.90 2.7-3.8/3.0-4.0 cm LAIDs Index: 1.54 1.5-2.3 cm/m2 LV Mass: 133.93 67-162/88-224 g LV Mass Index: 71.24 43-95/49-115 g/m2 LVOT Diam: 2.00 3.0+(-)1.3 cm 2D Systolic Function EF 4C: 59.30 >55% EF 2C: 55.80 >55% EF BiP: 57.20 >55% Mitral Valve MV Pk E: 0.56 MV PK A: 0.68 MV Decel Time: 190.00 E/A: 0.80 E'Lateral: 10.00 E'Medial: 5.87 E/E' Med: 9.50 E/E' Lat: 5.60 PHT: 56.00 MVA PHT: 3.93 Decel [place]: 2.94 Aortic Valve AoV Pk Eduardo: 1.32 AoV Mn Eduardo: 0.91 AoV VTI: 0.29 AoV Pk Grad: 7.00 Aov Mn Grad: 4.00 MÓNICA Cont.VTI: 1.93 LVOT LVOT Pk Eduardo: 1.04 LVOT Mn Eduardo: 0.63 LVOT VTI: 0.18 LVOT Pk Grad: 4.00 LVOT Mn Grad: 2.00 LVOT Diam: 2.00 LVOT Area: 3.14 Diastolic Function MV Pk E: 0.56 MV Pk A: 0.68 E/A: 0.80 E'Medial: 5.87 E/E' Med: 9.50 E' Laterial: 10.00 E/E' Lat: 5.60 Right Ventricle TAPSE (mm): 26.00 TVS' Eduardo: 10.00 Tricuspid Valve TR Pk Eduardo: 2.05 TR Pk Grad: 17.00 RA Press: 3.00 RVSP: 20.00 Great Vessels Aorta Ao Root-2D: 2.80 2.0-3.7 cm Ao Asc: 2.60 2.1-3.4 cm Pulmonary Valve PV Pk Eduardo: 0.78 Peak PV Grad: 2.00 Updated in Other Vendor System with Status of Final Tobin Wolf MD electronically signed on 10/02/2022 12:21:05 PM with status of Final
--- NOTE | 2022-10-02 08:34 | HM_ITS ---
conclusion: 1. Patient was monitored for total period of 12 days 2. Baseline rhythm was normal sinus rhythm with average heart rate 84 beats per minute 3. No significant pauses or bradycardia noted 4. Rare PACs noted 5. Total of 8 SVT events noted with fastest heart rate 145 beats per minute in longest at 13 beats 6. No patient reported events MTDD
== END ==
LOC: HO.CARD 08:31
PROVIDERS: PCP Internal Medicine; Visit Provider Internal Medicine
DX: R00.2 Palpitations (principal)
CPT/HCPCS: 93246; 93306

== ENCOUNTER → 2022-12-18 13:52 | Outpatient (BNVA) | payer OTHER, SELFPAY | PROVIDERS: PCP Internal Medicine; Referring Provider Internal Medicine; Visit Provider Nurse Practitioner Family | DX: Z13.89 Encounter for screening for other disorder (principal) ==

== ENCOUNTER 2023-03-19 02:48 | Emergency (ER) | payer OTHER, SELFPAY ==
--- NOTE | 2023-03-19 | ECG_ITS ---
Test Reason : CHEST PAIN Blood Pressure : / mmHG Vent. Rate : 088 BPM Atrial Rate : 088 BPM P-R Int : 166 ms QRS Dur : 080 ms QT Int : 370 ms P-R-T Axes : 082 038 038 degrees QTc Int : 447 ms Sinus rhythm with Premature atrial complexes Nonspecific ST abnormality Abnormal ECG When compared with ECG of 09-SEP-2022 20:55, Premature atrial complexes are now Present Referred By: Generic ED Physician Electronically Signed By:Vaughn Villareal
[2023-03-19 02:51] VITALS: BP 150/114; PULSE 84; RESP 20; TEMP 36.1; O2SAT 99; BMI 23.6
[2023-03-19 03:14] VITALS: PULSE 84
[2023-03-19 03:14] LABS: Basophils Percent Auto 0.7 % (0-2); Eosinophils Absolute Auto 0.2 X10*3/uL (0.0-0.4); Eosinophils Percent Auto 3.1 % (0-4); Hematocrit 40.7 % (37.0-47.0); Hemoglobin 13.9 g/dl (12.0-16.0); Imm Gran Abs Auto 0.01 X10*3/uL (0.00-0.03); Imm Gran Pct Auto 0.2 % (0.0-0.4); MANUAL DIFF FLAG NO; Mean Corpuscular HGB Conc 34.2 g/dl (31.0-35.0); Mean Corpuscular Hemoglobin 30.8 pg (27.0-33.0); Mean Platelet Volume 8.9 fL (9.4-12.3); Monocytes Absolute Auto 0.5 X10*3/uL (0.1-1.2); Monocytes Percent Auto 8.6 % (2-11); Neutrophils Absolute Auto 3.3 x10*3/uL (2.0-8.3); Neutrophils Percent Auto 54.4 % (45-73); Platelet Count 213 X10*3/uL (160-400); Red Blood Count 4.52 X10*6/uL (4.20-5.50); Red Cell Distribution Width 12.2 % (11.0-16.0); White Blood Count 6.1 X10*3/uL (4.8-10.8)
[2023-03-19 03:26] LABS: Anion Gap 13 (12-20); Blood Urea Nitrogen 16 mg/dL (9-16); Calcium 9.6 mg/dL (8.4-10.2); Carbon Dioxide 25 mmol/L (22-29); Chloride 107 mmol/L (96-108); Creatinine Clr Calc Pharmacy 79.1; Estimated Glomerular Filt Rate > 60; Glucose Random 104 mg/dL (60-115); Potassium 4.2 mmol/L (3.3-5.1); Sodium 141 mmol/L (135-145)
--- NOTE | 2023-03-19 03:28 | PC.NURSE ---
Patient presenting to the ED for evaluation of pressure like pain/discomfort and occasional heart palpitations that started over 1 hour ago. Patient denies nausea/vomiting/dizziness/non diaphoretic. EKG completed, ED provider reviewed results of EKG. Patient placed on property assessment monitor NSR with occasional PAC's, HR 70-92. 20 G IV line established in R AC. Labs drawn and sent to lab for processing. Call lujan placed within patient's reach.
[2023-03-19 03:34] LABS: Troponin-I High Sensitivity < 2.7 ng/L (<3.5-17.0)
--- NOTE | 2023-03-19 03:53 | ED.CHESTPAIN ---
HPI - Chest Pain General Chief Complaint: Chest Pain Stated Complaint: Chest tightness/Palpitations/Sob Time Seen by Provider: 03/19/23 03:28 Source: patient Mode of arrival: ambulatory Limitations: no limitations History of Present Illness HPI narrative: Patient history of PACs and SVT seen in the order monitoring on 10/15 woke up from sleep at 01:30 with palpitation episode of chest discomfort continued when she came to the ER clock and watch hands mounter showing PACs with heart rate in 80s patient seems very anxious patient had a total workup done in 10/15 for SVT/PACs including echo and Holter monitoring Related Data Home Medications Medication Instructions Recorded Confirmed No Known Home Meds 09/19/22 12/18/22 Allergies Allergy/AdvReac Type Severity Reaction Status Date / Time sulfamethoxazole Allergy Intermediate HIVES Verified 03/19/23 02:51 [From BACTRIM] trimethoprim [From BACTRIM] Allergy Intermediate HIVES Verified 03/19/23 02:51 Sulfa (Sulfonamide Allergy Unknown rash Verified 03/19/23 02:51 Antibiotics) Review of Systems Review of Systems: Yes all other systems are reviewed and are negative PMFSH Past Medical History Medical History Abdominal pain Annual physical exam Back pain COVID-19 Detached retina, left Shoulder pain, left Surgical History H/O colonoscopy H/O esophagogastroduodenoscopy Family History Family History Father HTN (hypertension) Cancer Paternal Grandfather Heart attack Mother Infectious thyroiditis Alzheimer disease Maternal Grandmother Diabetes Social History Social History Household Members: None Housing: Apartment Do you presently have visiting nurse or other home services: No Alcohol intake: current Alcohol intake frequency: holidays/special occasions only Alcohol type: beer Patient Tobacco Use Status: Former Tobacco user Smoked in Last 30 Days: No Second Hand Smoke Exposure: No Use of substances other than those prescribed or required for medical reasons: No Advance Directives: No Advance Directives Information Provided: Yes Patient : No service: No Current occupational status: employed Physical Exam Vital Signs: Vital Signs: Last Vital Signs Temp 98.0 F 03/19/23 04:11 Pulse 61 03/19/23 04:11 Resp 15 03/19/23 04:11 BP 141/74 H 03/19/23 04:11 Pulse Ox 97 03/19/23 04:11 O2 Del Method Room Air 03/19/23 04:11 BMI result Body Mass Index 23.6 Appearance: Alert. Oriented X3. No acute distress. Eyes: PERRLA, No Nystagmus ENT: Pharynx normal. Oral Mucosa moist Neck: Normal inspection. Neck supple. CVS: Normal heart rate occasional PACs. Pulses normal. Respiratory: No respiratory distress. Equal air entry bilateral, no wheezing/rales/rhonchi Abdomen: Soft and nontender. Bowel sounds are present, no mass palpable, no CVA tenderness Skin: Skin warm and dry. Normal skin color. Normal skin turgor. Extremities: No lower extremity edema. No calf tenderness Neuro: Oriented X 3. No motor deficit. No sensory deficit.No cerebellar signs , cranial nerves II-XII intact Medical Decision Making Medical Decision Making [facility] Narrative: Patient history of SVT/PACs work of uses on clock and watch hands mounter 2 sets of cardiac enzymes negative patient asymptomatic at this time discharge patient home advised to follow with research attorney Lab Data [facility] Lab Attestation statement: I reviewed the patient's lab results. 03/19/23 03:10 03/19/23 03:10 Labs: Lab Results 03/19/23 03/19/23 03/19/23 Range/Units 03:10 03:10 03:10 WBC 6.1 (4.8-10.8) X10*3/uL RBC 4.52 (4.20-5.50) X10*6/uL Hgb 13.9 (12.0-16.0) g/dl Hct 40.7 (37.0-47.0) % MCV 90.0 (80.0-98.0) fL MCH 30.8 (27.0-33.0) pg MCHC 34.2 (31.0-35.0) g/dl RDW 12.2 (11.0-16.0) % Plt Count 213 (160-400) X10*3/uL MPV 8.9 L (9.4-12.3) fL Immature Gran % (Auto) 0.2 (0.0-0.4) % Neut % (Auto) 54.4 (45-73) % Lymph % (Auto) 33.0 (20-40) % [place] % (Auto) 8.6 (2-11) % Eos % (Auto) 3.1 (0-4) % Baso % (Auto) 0.7 (0-2) % Lymph # (Auto) 2.0 (1.2-4.9) X10*3/uL [place] # (Auto) 0.5 (0.1-1.2) X10*3/uL Eos # (Auto) 0.2 (0.0-0.4) X10*3/uL Baso # (Auto) 0.0 (0.0-0.2) X10*3/uL Abs Immat Gran (auto) 0.01 (0.00-0.03) X10*3/uL Absolute Neuts (auto) 3.3 (2.0-8.3) x10*3/uL Absolute Nucleated RBC 0.000 (0.0-0.012) X10*3/uL Nucleated RBC % (auto) 0.0 (0.0-0.2) /100WBC D-Dimer High Sensitivty NG/ML Sodium 141 (135-145) mmol/L Potassium 4.2 (3.3-5.1) mmol/L Chloride 107 (96-108) mmol/L Carbon Dioxide 25 (22-29) mmol/L Anion Gap 13 (12-20) BUN 16 (9-16) mg/dL Creatinine 0.76 (0.5-1.4) mg/dL Estim Creat Clear Calc 79.1 Estimated GFR > 60 Random Glucose 104 (60-115) mg/dL Calcium 9.6 (8.4-10.2) mg/dL Troponin I High Sens < 2.7 (<3.5-17.0) ng/L 03/19/23 03/19/23 Range/Units 05:18 05:18 WBC (4.8-10.8) X10*3/uL RBC (4.20-5.50) X10*6/uL Hgb (12.0-16.0) g/dl Hct (37.0-47.0) % MCV (80.0-98.0) fL MCH (27.0-33.0) pg MCHC (31.0-35.0) g/dl RDW (11.0-16.0) % Plt Count (160-400) X10*3/uL MPV (9.4-12.3) fL Immature Gran % (Auto) (0.0-0.4) % Neut % (Auto) (45-73) % Lymph % (Auto) (20-40) % [place] % (Auto) (2-11) % Eos % (Auto) (0-4) % Baso % (Auto) (0-2) % Lymph # (Auto) (1.2-4.9) X10*3/uL [place] # (Auto) (0.1-1.2) X10*3/uL Eos # (Auto) (0.0-0.4) X10*3/uL Baso # (Auto) (0.0-0.2) X10*3/uL Abs Immat Gran (auto) (0.00-0.03) X10*3/uL Absolute Neuts (auto) (2.0-8.3) x10*3/uL Absolute Nucleated RBC (0.0-0.012) X10*3/uL Nucleated RBC % (auto) (0.0-0.2) /100WBC D-Dimer High Sensitivty < 150 NG/ML Sodium (135-145) mmol/L Potassium (3.3-5.1) mmol/L Chloride (96-108) mmol/L Carbon Dioxide (22-29) mmol/L Anion Gap (12-20) BUN (9-16) mg/dL Creatinine (0.5-1.4) mg/dL Estim Creat Clear Calc Estimated GFR Random Glucose (60-115) mg/dL Calcium (8.4-10.2) mg/dL Troponin I High Sens < 2.7 (<3.5-17.0) ng/L Independent Interpretation I performed an independent interpretation of an: EKG Interpretation: Normal sinus rhythm heart rate 88 beats per minute frequent PACs normal interval normal axis no acute ST wave change no acute ischemic Discharge Plan Discharge Clinical Impression: Palpitations, Chest pain Patient Disposition: Home, Self-Care Instructions: Chest Pain (ED), Heart Palpitations (ED) Additional Instructions: Continue your medications and follow up with your research attorney Prescriptions: No Action No Known Home Meds
[2023-03-19 04:11] VITALS: BP 141/74; PULSE 61; RESP 15; TEMP 36.7; O2SAT 97
[2023-03-19 05:34] LABS: D Dimer High Sensitivity < 150 NG/ML
[2023-03-19 05:46] LABS: Troponin-I High Sensitivity < 2.7 ng/L (<3.5-17.0)
[2023-03-19 05:53] VITALS: BP 122/68; PULSE 65; RESP 14; TEMP 36.5; O2SAT 97
== END 2023-03-19 06:07 | disposition home or self-care (01) ==
PROVIDERS: Emergency Provider Internal Medicine; PCP Internal Medicine
DX: R07.89 Other chest pain (principal); R00.2 Palpitations; R06.02 Shortness of breath; Z79.899 Other long term (current) drug therapy
CPT/HCPCS: 36415; 80048; 84484; 85025; 85379; 93005; 99283; 99284; 99285

== ENCOUNTER 2023-04-25 12:47 | Outpatient (AMB) | payer OTHER, SELFPAY ==
--- NOTE | 2023-04-25 12:51 | A.OFFPC_ITS ---
Vital Signs 04/25/23 12:56 Height 5 ft 9 in Weight 169 lb BMI 25.0 BP 106/72 Blood Pressure Location Rt brachial Position Sitting Pulse 64 Pulse Source Pulse Oximeter Pulse Oximetry (%) 96 Oxygen Delivery Method Room Air Intake Visit Reasons: Right Breast Pain Allergies sulfamethoxazole [From BACTRIM] Allergy (Intermediate, Verified 03/19/23 02:51) HIVES trimethoprim [From BACTRIM] Allergy (Intermediate, Verified 03/19/23 02:51) HIVES Sulfa (Sulfonamide Antibiotics) Allergy (Unknown, Verified 03/19/23 02:51) rash HPI Right Breast Pain HPI Details Pt c/o R side axillary and breast discomfort on and off since sleeping on R side for 1 year. Patient denies nipple discharge or change in breast shape. she is overdue for mammogram [facility] Medical History Abdominal pain Annual physical exam Back pain COVID-19 Detached retina, left Shoulder pain, left Surgical History H/O colonoscopy H/O esophagogastroduodenoscopy Family History Father HTN (hypertension) Cancer Paternal Grandfather Heart attack Mother Infectious thyroiditis Alzheimer disease Maternal Grandmother Diabetes Social History Household Members: None Housing: Apartment Do you presently have visiting nurse or other home services: No Alcohol intake: current Alcohol intake frequency: holidays/special occasions only Alcohol type: beer Patient Tobacco Use Status: Former Tobacco user Second Hand Smoke Exposure: No service: No Current occupational status: employed Review of Systems Const All systems reviewed & are unremarkable except as noted in HPI and below Reports no additional complaints ENT Reports no additional complaints Card Reports no additional complaints Resp Reports no additional complaints GI Reports no additional complaints Physical exam (Primary Care) Vital Signs: Last Vital Signs Pulse 64 04/25/23 12:56 BP 106/72 04/25/23 12:56 Pulse Ox 96 04/25/23 12:56 Oxygen Delivery Method Room Air 04/25/23 12:56 BMI result Body Mass Index 25.0 Tobacco/Smoking Status: Tobacco use Status Patient Tobacco Use Status Former Tobacco user 04/25/23 12:52 Const General: no acute distress HENMT Mouth: Normal oral and palatal mucosa present Chest Breast/axilla inspection: normal inspection of the breasts Breast/axilla palpation: normal palpation of the breasts (left breast), normal palpation of the axillae, no axillary lymphadenopathy and abnormal palpation of the breast (R breast 10 oclock dense tissue.? nodule, no nipple change) Resp Effort & Inspection: normal respiratory effort Auscultation: clear to auscultation bilaterally Cardio Rhythm: regular rhythm Heart sounds: S1 normal heart sound present and S2 normal heart sound present Assessment and Plan Assessment & Plan (1) Annual physical exam: Code(s): Z00.00 - Encounter for general adult medical examination without abnormal findings (2) Breast mass, right: Code(s): N63.10 - Unspecified lump in the right breast, unspecified quadrant Plan: Refer for diagnostic mammogram of right breast and screening mammogram of the left breast Orders: Orders Comprehensive [place]. Panel Fast Today Z00.00 - Encounter for general adult medical examination without abnormal findings Lipid Panel Today Z00.00 - Encounter for general adult medical examination without abnormal findings TSH reflex Free T4 Today Z00.00 - Encounter for general adult medical examination without abnormal findings Vitamin D 25-OH Total Today Z00.00 - Encounter for general adult medical examination without abnormal findings Complete Blood Count Auto Diff Today Z00.00 - Encounter for general adult medical examination without abnormal findings MM diagnostic mammo unilat RT Today N63.10 - Unspecified lump in the right breast, unspecified quadrant MM screening mammo unilat LT Today Z12.31 - Encounter for screening mammogram for malignant neoplasm of breast Coding Level of Care Code Est Pt Level 3 (60582) Diagnoses Annual physical exam Z00.00 Breast mass, right N63.10
[2023-04-25 12:56] VITALS: BP 106/72; PULSE 64; O2SAT 96; BMI 25.0
== END 2023-04-25 14:01 | disposition home or self-care (01) ==
PROVIDERS: PCP Internal Medicine; Visit Provider Internal Medicine
DX: N63.11 Unspecified lump in the right breast, upper outer quadrant (principal)
CPT/HCPCS: 99213

== ENCOUNTER 2023-06-04 08:11 | Outpatient (AMB) | payer OTHER, SELFPAY ==
--- NOTE | 2023-06-04 08:21 | AM.OFFWIN_ITS ---
Intake Vital Signs 06/04/23 08:23 Weight 160 lb BP 120/80 Blood Pressure Location Rt brachial Position Sitting Pulse 74 Pulse Source Pulse Oximeter Pulse Oximetry (%) 98 Oxygen Delivery Method Room Air Intake Visit Reasons: EP Bladder infection Intake Note: Patient here for bladder infection. symptoms started last night. she has been experiencing burning when urinating. Patient Tobacco Use Status: Former Tobacco user Allergies sulfamethoxazole [From BACTRIM] Allergy (Intermediate, Verified 06/04/23 08:58) HIVES trimethoprim [From BACTRIM] Allergy (Intermediate, Verified 06/04/23 08:58) HIVES Sulfa (Sulfonamide Antibiotics) Allergy (Unknown, Verified 06/04/23 08:58) rash Medication List - Last Reconciled 06/04/23 by Jordan Kelley MD ciprofloxacin HCl 250 mg PO BID phenazopyridine (Pyridium) 200 mg PO TID 3 days Do you need a note to return to daycare/school/sports/work: No HPI EP Bladder infection HPI Details Patient presents for a sick visit. Reports symptoms of increased frequency of urination, burning on urination and discomfort in the suprapubic area. Symptoms started in the past few days. No fevers or chills. No nausea or vomiting. [facility] Medical History Abdominal pain Annual physical exam Back pain COVID-19 Detached retina, left Shoulder pain, left Surgical History H/O colonoscopy H/O esophagogastroduodenoscopy Family History Father HTN (hypertension) Cancer Paternal Grandfather Heart attack Mother Infectious thyroiditis Alzheimer disease Maternal Grandmother Diabetes Social History Household Members: None Housing: Apartment Do you presently have visiting nurse or other home services: No Alcohol intake: current Alcohol intake frequency: holidays/special occasions only Alcohol type: beer Patient Tobacco Use Status: Former Tobacco user Second Hand Smoke Exposure: No service: No Current occupational status: employed Physical Exam Vital Signs: Last Vital Signs Pulse 74 06/04/23 08:23 BP 120/80 06/04/23 08:23 Pulse Ox 98 06/04/23 08:23 Oxygen Delivery Method Room Air 06/04/23 08:23 General: Yes bladder normal to inspection and Yes no CVA tenderness Back/Spine/Pelvis Back: no CVA tenderness Results AMB Urinalysis, Automated UA Leukoctes 70 Camille/uL Last Edit by Berto Cisse [facility] on 06/04/23 08:4 8 UA Nitrite Negative Last Edit by Berto Cisse [facility] on 06/04/23 08:48 UA Urobilinogen 0.2 mg/dL Last Edit by Berto Cisse [facility] on 06/04/23 08:48 UA Protein 0 mg/dL Last Edit by Berto Cisse [facility] on 06/04/23 08:48 UA pH 6.0 Last Edit by Berto Cisse [facility] on 06/04/23 08:48 UA Blood 200 Missael/uL Last Edit by Berto Cisse [facility] on 06/04/23 08:48 UA Specific [place] 1.010 Last Edit by Berto Cisse [facility] on 06/04/23 08:48 UA Ketone Negative Last Edit by Berto Cisse [facility] on 06/04/23 08:48 UA Bilirubin 0 mg/dL Last Edit by Berto Cisse [facility] on 06/04/23 08:48 UA Glucose 0 mg/dL Last Edit by Berto Cisse [facility] on 06/04/23 08:48 Results Reviewed Results Reviewed: Laboratory Last Values Urine pH (Auto) 6.0 06/04/23 08:46 Specific [place] (Auto) 1.010 06/04/23 08:46 Urine Protein (Auto) 0 mg/dL 06/04/23 08:46 Glucose (UA)(Auto) 0 mg/dL 06/04/23 08:46 Urine Ketones (Auto) Negative 06/04/23 08:46 Urine Blood (Auto) 200 Missael/uL 06/04/23 08:46 Urine Nitrite (Auto) Negative 06/04/23 08:46 Urine Bilirubin (Auto) 0 mg/dL 06/04/23 08:46 Urine Urobilinogen (Auto) 0.2 mg/dL 06/04/23 08:46 Leukocyte Esterase (Auto) 70 Camille/uL 06/04/23 08:46 Assessment & Plan Assessment & Plan (1) Urinary tract infection: Code(s): N39.0 - Urinary tract infection, site not specified Qualifiers: Urinary tract infection type: acute cystitis Hematuria presence: with hematuria Qualified Code(s): N30.01 - Acute cystitis with hematuria Plan: Take antibiotics and Pyridium as directed. Increase fluid intake. If symptoms of burning persist, new onset of fever or lower back pain, to follow-up at the clinic. Orders: Orders AMB Urinalysis Automated Today Z13.9 - Encounter for screening, unspecified Medications: New phenazopyridine (Pyridium) 200 mg PO TID 9 tabs 0RF 3 days ciprofloxacin HCl 250 mg PO BID 10 tabs 0RF Coding Level of Care Code Est Pt Level 3 (16340) Diagnoses Acute cystitis with hematuria N30.01 Urinary tract infection type: acute cystitis Hematuria presence: with hematuria
[2023-06-04 08:23] VITALS: BP 120/80; PULSE 74; O2SAT 98
== END 2023-06-04 09:35 | disposition home or self-care (01) ==
PROVIDERS: PCP Internal Medicine; Visit Provider Internal Medicine
DX: N30.01 Acute cystitis with hematuria (principal)
CPT/HCPCS: 81003; 99213

== ENCOUNTER 2023-08-12 14:50 | Outpatient (REF) | payer OTHER, SELFPAY ==
--- NOTE | ~2023-08-12 | MM_ITS ---
EXAMINATION: MM DIAGNOSTIC DIGITAL BREAST TOMOSYNTHESIS, BILATERAL CLINICAL INFORMATION: Patient complains of superior right breast palpable focus, however has not been able to feel over the last few months . There is nothing to delia. COMPARISON: Mammography: 06/06/2017, 08/29/2012. TECHNIQUE: Digital breast tomosynthesis is performed in both the craniocaudal and mediolateral oblique views along with computer-aided detection (CAD). Synthesized 2D images are generated from the tomosynthesis. FINDINGS: There are scattered areas of fibroglandular density (ACR BI-RADS breast composition Category b). There is a benign dystrophic calcification in the right breast anterior one third, periareolar region. There are no suspicious masses, suspicious grouped calcifications, or areas of architectural distortion in either breast. The parenchymal pattern is stable from prior exams. MM/MM tomosynthesis diagnostic BI IMPRESSION: There are no findings suspicious for malignancy in either breast. ASSESSMENT: BI-RADS BI-RADS 2 - Benign Findings RECOMMENDATION: 1 year F/U Results were provided to the patient at time of visit by the technologist. This patient's information was entered into a reminder system with a target due date for their next mammogram.
== END 2023-08-12 14:51 | disposition home or self-care (01) ==
LOC: HO.MAMMO 14:50
PROVIDERS: Visit Provider Internal Medicine
DX: N63.11 Unspecified lump in the right breast, upper outer quadrant (principal); N63.21 Unspecified lump in the left breast, upper outer quadrant
CPT/HCPCS: 77062; 77066

== ENCOUNTER → 2023-08-12 15:00 | Outpatient (BNV) | payer OTHER, SELFPAY | PROVIDERS: Visit Provider Radiology Diagnostic Radiology | DX: R92.1 Mammographic calcification found on diagnostic imaging of breast (principal) | CPT/HCPCS: 77062; 77066 ==

== ENCOUNTER 2023-12-09 08:18 | Outpatient (REF) | payer OTHER, SELFPAY ==
[2023-12-09 11:08] LABS: MANUAL DIFF FLAG NO
[2023-12-09 11:25] LABS: Basophils Absolute Auto 0.1 X10*3/uL (0.0-0.2); Eosinophils Absolute Auto 0.2 X10*3/uL (0.0-0.4); Eosinophils Percent Auto 2.6 % (0-4); Hematocrit 43.8 % (37.0-47.0); Hemoglobin 14.6 g/dl (12.0-16.0); Imm Gran Abs Auto 0.02 X10*3/uL (0.00-0.03); Imm Gran Pct Auto 0.3 % (0.0-0.4); Lymphocytes Absolute Auto 1.6 X10*3/uL (1.2-4.9); Lymphocytes Percent Auto 24.9 % (20-40); Mean Corpuscular HGB Conc 33.3 g/dl (31.0-35.0); Mean Corpuscular Hemoglobin 30.8 pg (27.0-33.0); Mean Corpuscular Volume 92.4 fL (80.0-98.0); Mean Platelet Volume 9.4 fL (9.4-12.3); Monocytes Absolute Auto 0.4 X10*3/uL (0.1-1.2); Monocytes Percent Auto 6.3 % (2-11); Neutrophils Absolute Auto 4.1 x10*3/uL (2.0-8.3); Neutrophils Percent Auto 64.9 % (45-73); Platelet Count 263 X10*3/uL (160-400); Red Blood Count 4.74 X10*6/uL (4.20-5.50); Red Cell Distribution Width 12.1 % (11.0-16.0); White Blood Count 6.2 X10*3/uL (4.8-10.8)
[2023-12-09 11:54] LABS: Alanine Aminotransferase 17 U/L (0-31); Albumin Level 4.2 g/dL (3.5-5.0); Alkaline Phosphatase 60 U/L (39-117); Anion Gap 13 (12-20); Aspartate Amino Transferase 18 U/L (5-31); Bilirubin Total 0.7 mg/dL (0.0-1.0); Blood Urea Nitrogen 15 mg/dL (9-16); Calcium 9.7 mg/dL (8.4-10.2); Carbon Dioxide 27 mmol/L (22-29); Chloride 107 mmol/L (96-108); Cholesterol 226 mg/dL (<200); Estimated Glomerular Filt Rate > 60; Glucose Fasting 101 mg/dL (60-99); HDL Cholesterol 63 mg/dL (>40); LDL Cholesterol Calculated 136 mg/dL (<100); Potassium 4.7 mmol/L (3.3-5.1); Sodium 142 mmol/L (135-145); Total Protein 7.1 g/dL (6.5-8.0); Triglycerides 136 mg/dL (<150)
[2023-12-09 12:00] LABS: TSH reflex Free T4 3.73 uIU/mL (0.32-4.0); Vitamin D 25-OH Total 44.9 ng/mL (>30)
== END 2023-12-09 08:19 | disposition home or self-care (01) ==
LOC: HO.HMGCLDS 08:18
PROVIDERS: PCP Internal Medicine; Visit Provider Internal Medicine
DX: Z00.00 Encounter for general adult medical examination without abnormal findings (principal); Z13.6 Encounter for screening for cardiovascular disorders
CPT/HCPCS: 36415; 80053; 80061; 82306; 84443; 85025

== ENCOUNTER 2023-12-12 09:05 | Outpatient (AMB) | payer OTHER, SELFPAY ==
[2023-12-12 09:07] VITALS: BP 122/78; PULSE 91; O2SAT 99; BMI 25.5
--- NOTE | 2023-12-12 09:07 | A.OFFPC_ITS ---
Vital Signs 12/12/23 09:07 Height 5 ft 9 in Weight 173 lb BMI 25.5 BP 122/78 Blood Pressure Location Lt brachial Position Sitting Pulse 91 Pulse Source Pulse Oximeter Pulse Oximetry (%) 99 Oxygen Delivery Method Room Air Intake Visit Reasons: Physical exam Intake Note: Pt is here today for PE. Allergies sulfamethoxazole [From BACTRIM] Allergy (Intermediate, Verified 12/12/23 09:10) HIVES trimethoprim [From BACTRIM] Allergy (Intermediate, Verified 12/12/23 09:10) HIVES Sulfa (Sulfonamide Antibiotics) Allergy (Unknown, Verified 12/12/23 09:10) rash Medication List - Last Reconciled 12/12/23 by Kristine Nielson MD lactobacillus combination no.9 (Adult 50 Plus Probiotic) PO multivitamin 1 tab PO DAILY Tobacco use date assessed: 12/12/23 Fall risk assessment: No Falls in past year Last assessed Fall Risk: 12/12/23 Dental Screening Dental Screen Date: 12/12/23 Did you have a dental visit in the last 12 months?: Yes Did you have a dental problem in the last 6 months where you did not have access to dental care?: No Was dental information given to patient?: Patient has dentist HPI Physical exam HPI Details Pt presents for PE. PFSH Medical History (Updated 12/12/23 @ 09:49 by Kristine Nielson MD) Shoulder pain, left Annual physical exam COVID-19 Detached retina, left Surgical History (Updated 12/12/23 @ 09:28 by Kristine Nielson MD) H/O esophagogastroduodenoscopy H/O colonoscopy Family History Father HTN (hypertension) Cancer Substance use disorder Paternal Grandfather Heart attack Mother Infectious thyroiditis Alzheimer disease Maternal Grandmother Diabetes Brother Substance use disorder Social History Household Members: None Housing: Apartment Do you presently have visiting nurse or other home services: No Alcohol intake: current Alcohol intake frequency: holidays/special occasions only Alcohol type: beer Patient Tobacco Use Status: Former Tobacco user e-Cigarette/Vaping Use: Never Used Second Hand Smoke Exposure: No service: No Current occupational status: employed Cognitive needs: No Hearing needs: No Vision needs: Yes Questionnaire PHQ-9 Over the last 2 weeks, how often have you been bothered by any of the following problems? 1. Little interest or pleasure in doing things: not at all 2. Feeling down, depressed, or hopeless: not at all 3. Trouble falling or staying asleep, or sleeping too much: not at all 4. Feeling tired or having little energy: not at all 5. Poor appetite or overeating: not at all 6. Feeling bad about yourself - or that you are a failure or have let yourself or your family down: not at all 7. Trouble concentrating on things, such as reading the newspaper or watching television: not at all 8. Moving or speaking so slowly that other people could have noticed. Or the opposite - being so fidgety or restless that you have been moving around a lot more than usual: not at all 9. Thoughts that you would be better off or of hurting yourself in some way: not at all Total score: 0 Depression Screening Interpretation: Negative Depression Screening Done: Yes Source: Developed by Drs. Josue Montgomery, Gerri Jordan, Jemal Mejia and colleagues, with an educational shin from [place]-[employer]. Thrive Questionnaire Date Thrive assessed: 12/12/23 I am a: Patient What is your living situation today?: I have a steady place to live Within the past 12 months, did the food you bought not last and you didn't have the money to get more?: Never true Within the past 12 months, did you worry whether your food would run out before you got money to buy more?: Never true Do you have trouble paying for medicines?: No Do you have trouble getting transportation to medical appointments?: No Do you have trouble paying your heating and electricity bill?: No Do you have trouble taking care of your child, family member or friend?: No Do you have trouble with day-to-day activities such as bathing, preparing meals, shopping, managing finances, etc.?: No Are you currently unemployed and looking for a job?: No Are you interested in more education?: No Please select the resources that you would like help with: None Currently or been in a relationship where the following occur: no concerns reported THRIVE Score: 0 AUDIT C Alcohol Use Questionnaire (AUDIT-C) 1. How often do you have a drink containing alcohol?: Monthly or less 2. How many drinks containing alcohol do you have on a typical day when you are drinking?: 1 or 2 3. How often do you have six or more drinks on one occasion?: Never Total Score: 1 MARQUIS-7 AMB Questionnaire MARQUIS-7 Date MARQUIS - 7 assessed: 12/12/23 Feeling nervous, anxious, or on edge: 0 = Not at all Not being able to stop or control worryin = Not at all Worrying too much about different things: 0 = Not at all Trouble relaxin = Not at all Being so restless that it is hard to sit still: 0 = Not at all Becoming easily annoyed or irritable: 0 = Not at all Feeling afraid as if something awful might happen: 0 = Not at all Total MARQUIS-7 score (0-4 normal; 5-9 mild; 10-14 moderate; 15-21 severe): 0 Source: Developed by Drs. Josue Montgomery, Gerri Jordan, Jemal Mejia and colleagues, with an educational shin from [place]-[employer]. Review of Systems Const All systems reviewed & are unremarkable except as noted in HPI and below Reports no additional complaints Eyes Reports no additional complaints ENT Reports no additional complaints Card Reports no additional complaints Resp Reports no additional complaints GI Reports no additional complaints Reports no additional complaints Physical exam (Primary Care) Vital Signs: Last Vital Signs Pulse 91 12/12/23 09:07 BP 122/78 12/12/23 09:07 Pulse Ox 99 12/12/23 09:07 Oxygen Delivery Method Room Air 12/12/23 09:07 BMI result Body Mass Index 25.5 Tobacco/Smoking Status: Tobacco use Status Tobacco use date assessed 12/12/23 12/12/23 09:14 Patient Tobacco Use Status Former Tobacco user 12/12/23 09:14 e-Cigarette/Vaping Use Never Used 12/12/23 09:14 PHQ-9: PHQ-9 Score PHQ-9: Total score 0 12/12/23 09:16 Depression Screening Interpretation: Negative Thrive Assessment: Date of Thrive Assessment Date Thrive assessed 12/12/23 12/12/23 09:16 Currently or been in a relationship where the following occur: no concerns reported Const General: no acute distress HENMT Head: Yes normal to inspection Ears: hearing grossly normal bilaterally General nose exam: Normal external nose present Face and sinus: Yes normal facial exam Mouth: Normal oral and palatal mucosa present Throat: Yes posterior oropharynx normal Eyes General: appearance normal, both eyes and all related structures Neck Neck: Yes no lymphadenopathy and Yes supple Resp Effort & Inspection: normal respiratory effort Auscultation: clear to auscultation bilaterally Cardio Rhythm: regular rhythm Heart sounds: S1 normal heart sound present and S2 normal heart sound present GI Inspection: Yes normal to inspection Palpation (GI): Soft to palpation Percussion: Yes normal to percussion Auscultation: normal bowel sounds Assessment and Plan Assessment & Plan (1) Hx of mammogram: Comment: 06/2023 Code(s): Z92.89 - Personal history of other medical treatment (2) Postmenopausal: Code(s): Z78.0 - Asymptomatic menopausal state Plan: Schedule DEXA (3) Annual physical exam: Code(s): Z - Encounter for general adult medical examination without abnormal findings Plan: Well-balanced diet regular physical activity discussed with the patient. She is up-to-date with colonoscopy and mammogram. 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 Harman Orders: Orders XR DEXA axial skeleton Today Z78.0 - Asymptomatic menopausal state Vitamin D 25-OH Total 365 Days 00.00 - Encounter for general adult medical examination without abnormal findings Pap Smear Today . - Encounter for general adult medical examination without abnormal findings Comprehensive [place]. Panel Fast 365 Days 00.00 - Encounter for general adult medical examination without abnormal findings TSH reflex Free T4 365 Days 00.00 - Encounter for general adult medical examination without abnormal findings Complete Blood Count Auto Diff 365 Days 00.00 - Encounter for general adult medical examination without abnormal findings Lipid Panel 365 Days 00.00 - Encounter for general adult medical examination without abnormal findings UA w Microscopic 365 Days 00.00 - Encounter for general adult medical examination without abnormal findings Coding Level of Care Code Est Pt Prev Care 40-64y(21105) Diagnoses Hx of mammogram Z92.89 Postmenopausal Z78.0 Annual physical exam Z. Blindness of left eye H54.40
== END 2023-12-12 09:53 | disposition home or self-care (01) ==
PROVIDERS: PCP Internal Medicine; Visit Provider Internal Medicine
DX: Z92.89 Personal history of other medical treatment (principal); Z78.0 Asymptomatic menopausal state; Z00.00 Encounter for general adult medical examination without abnormal findings; H54.40 Blindness, one eye, unspecified eye
CPT/HCPCS: 99396

== ENCOUNTER 2023-12-12 09:55 | Outpatient (REF) | payer OTHER, SELFPAY ==
[2023-12-18 00:54] LABS: HPV mRNA E6/E7 Not Detected (Not Detected)
== END 2023-12-12 09:56 | disposition home or self-care (01) ==
LOC: HO.LNP 09:55
PROVIDERS: Visit Provider Internal Medicine
DX: Z12.4 Encounter for screening for malignant neoplasm of cervix (principal); Z11.51 Encounter for screening for human papillomavirus (HPV)
CPT/HCPCS: 87624; 88142

== ENCOUNTER 2023-12-26 08:13 | Outpatient (REF) | payer OTHER, SELFPAY ==
--- NOTE | ~2023-12-26 | MM_ITS ---
EXAMINATION: BONE DENSITOMETRY CLINICAL INDICATION: Menopause. COMPARISON: This is the patient's baseline examination. TECHNIQUE: Using a [employer] DXA System (software version: 13.1) manufactured by [employer], dual-energy x-ray absorptiometry was performed of the lumbar spine and left hip. The images are of good technical quality. Summary results are attached. FINDINGS: LEFT FEMUR, NECK: BMD 0.984 g/cm2, Z-score 0.8, T-score -0.4, normal. LEFT FEMUR, TOTAL: BMD 1.062 g/cm2, Z-score 1.3, T-score 0.4, normal. AP SPINE L1-L4: BMD 1.368 g/cm2, Z-score 2.7, T-score 1.6, normal. IDENTIFIED RISK FACTORS: Menopause, history of fracture (adult). HISTORY OF FRACTURE: Spine, shoulder. MEDICATIONS: Multivitamin. MM/XR DEXA axial skeleton IMPRESSION: 1. DIAGNOSIS: Normal bone density based on the lowest T-score value of -0.4 in the femoral neck applying World Health Organization criteria. 2. 10-YEAR FRACTURE RISK PREDICTION, FRAX: According to the guidelines, FRAX calculation should only be performed on patients in the osteopenia bone density category. Therefore, FRAX was not performed on this patient. 3. Treatment Recommendations: NOF guidelines recommend consideration for treatment in postmenopausal women and men age 50 and older presenting with the following: -A hip or vertebral (clinical or morphometric) fracture. -T-score less than or equal to -2.5 at the femoral neck or spine after appropriate evaluation to exclude secondary causes. -Low bone mass at the hip or spine and a 10-year fracture probability by FRAX of greater than or equal to 3% for hip fracture or greater than or equal to 20% for major osteoporotic fracture based on the [place] adapted WHO algorithm. 4. Other Recommendations: All treatment decisions require clinical judgment and consideration of individual patient factors, including patient preferences, comorbidities, previous drug use, risk factors not captured in the FRAX model (e.g. frailty, falls, vitamin D deficiency, increased bone turnover, interval significant decline in bone density) and possible under or overestimation of fracture risk by FRAX. FUTURE SCAN RECOMMENDATION: People with diagnosed cases of osteoporosis or at high risk for fracture should have regular bone mineral density tests. For patients eligible for Medicare, routine testing is allowed once every 2 years. The testing frequency can be increased to one year for patients who have rapidly progressing disease, those who are receiving or discontinuing medical therapy to restore bone mass, or have additional risk factors.
== END 2023-12-26 08:14 | disposition home or self-care (01) ==
LOC: HO.MAMMO 08:13
PROVIDERS: PCP Internal Medicine; Visit Provider Internal Medicine
DX: Z13.820 Encounter for screening for osteoporosis (principal); Z78.0 Asymptomatic menopausal state
CPT/HCPCS: 77080

== ENCOUNTER 2023-12-26 12:46 | Outpatient (AMB) | payer OTHER, SELFPAY ==
[2023-12-26 12:32] VITALS: BP 120/80; PULSE 81; TEMP 36.4; O2SAT 97; BMI 26.0
--- NOTE | 2023-12-26 12:32 | AM.OFFWIN_ITS ---
Intake Vital Signs 12/26/23 12:32 Height 5 ft 9 in Weight 176 lb BMI 26.0 BP 120/80 Blood Pressure Location Lt brachial Position Sitting Pulse 81 Pulse Source Pulse Oximeter Temp 97.6 F Temp Source Temporal Artery Scan Pulse Oximetry (%) 97 Intake Visit Reasons: EP ?Bladder infection Intake Note: pt is here today for bladder infection started today Patient Tobacco Use Status: Former Tobacco user Allergies sulfamethoxazole [From BACTRIM] Allergy (Intermediate, Verified 12/26/23 12:57) HIVES trimethoprim [From BACTRIM] Allergy (Intermediate, Verified 12/26/23 12:57) HIVES Sulfa (Sulfonamide Antibiotics) Allergy (Unknown, Verified 12/26/23 12:57) rash microbid Allergy (Mild, Uncoded 12/26/23 12:59) Headache Do you need a note to return to daycare/school/sports/work: No HPI HPI Comments History of Present Illness Details 63 y/o female patient who presents [facility] clinic with c/o Urinary symptoms that started today morning. Pt reports urinary frequency since this AM. Denies vaginal symptoms. [facility] Medical History (Updated 12/12/23 @ 09:49 by Kristine Nielson MD) Shoulder pain, left Annual physical exam COVID-19 Detached retina, left Surgical History (Updated 12/12/23 @ 09:28 by Kristine Nielson MD) H/O esophagogastroduodenoscopy H/O colonoscopy Family History Father HTN (hypertension) Cancer Substance use disorder Paternal Grandfather Heart attack Mother Infectious thyroiditis Alzheimer disease Maternal Grandmother Diabetes Brother Substance use disorder Social History Household Members: None Housing: Apartment Do you presently have visiting nurse or other home services: No Alcohol intake: current Alcohol intake frequency: holidays/special occasions only Alcohol type: beer Patient Tobacco Use Status: Former Tobacco user e-Cigarette/Vaping Use: Never Used Second Hand Smoke Exposure: No service: No Current occupational status: employed Cognitive needs: No Hearing needs: No Vision needs: Yes Review of Systems Const All systems reviewed & are unremarkable except as noted in HPI and below Physical Exam Vital Signs: Last Vital Signs Temp 97.6 F 12/26/23 12:32 Pulse 81 12/26/23 12:32 BP 120/80 12/26/23 12:32 Pulse Ox 97 12/26/23 12:32 BMI result Body Mass Index 26.0 Const General: no acute distress Orientation/consciousness: patient oriented x3 General: Yes no CVA tenderness Back/Spine/Pelvis Back: no CVA tenderness Neuro General: patient oriented x3, gait normal and moves all extremities Psych Speech and movement: Normal speech and movement present Assessment & Plan Assessment & Plan (1) Urinary tract infection symptoms: Code(s): R39.9 - Unspecified symptoms and signs involving the genitourinary system Plan: - Rapid POCT negative - Hydrate well with water or Cranberry juice - RTC if symptoms worse. Coding Level of Care Code Est Pt Level 3 (05988) Diagnoses Urinary tract infection symptoms R39.9 Time Spent (min) 15
== END 2023-12-26 16:52 | disposition home or self-care (01) ==
PROVIDERS: PCP Internal Medicine; Visit Provider Nurse Practitioner Family
DX: R39.9 Unspecified symptoms and signs involving the genitourinary system (principal)
CPT/HCPCS: 99213

== ENCOUNTER 2024-01-07 14:13 | Outpatient (AMB) | payer OTHER, SELFPAY ==
[2024-01-07 14:19] VITALS: BP 130/64; PULSE 89; BMI 25.8
--- NOTE | 2024-01-07 14:19 | A.OFFVIS_ITS ---
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 In the past, she was seen for palpitations and Holter had shown rare supraventricular ectopy. She states that she is actually doing quite well these days. She does not have any symptoms like angina or palpitations or in fact anything cardiac sounding at all. No documented coronary disease or myocardial infarction or cardiomyopathy in the past. [facility] Medical History (Updated 01/07/24 @ 16:10 by Tobin Wolf MD) Shoulder pain, left Annual physical exam COVID-19 Detached retina, left Surgical History H/O esophagogastroduodenoscopy H/O colonoscopy Family History Father HTN (hypertension) Cancer Substance use disorder Paternal Grandfather Heart attack Mother Infectious thyroiditis Alzheimer disease Maternal Grandmother Diabetes Brother Substance use disorder Social History Household Members: None Housing: Apartment Do you presently have visiting nurse or other home services: No Alcohol intake: current Alcohol intake frequency: holidays/special occasions only Alcohol type: beer Patient Tobacco Use Status: Former Tobacco user e-Cigarette/Vaping Use: Never Used Second Hand Smoke Exposure: No service: No Current occupational status: employed Cognitive needs: No Hearing needs: No Vision needs: Yes Review of Systems Const Denies chills, Denies fatigue, Denies fever(s), Denies frequent falls, Denies weakness, Denies weight gain and Denies weight loss ENT Denies dizziness Card Denies chest pain, Denies leg edema, Denies lightheadedness, Denies palpitations, Denies dyspnea and Denies dyspnea on exertion Resp Denies cough, Denies dyspnea and Denies dyspnea on exertion GI Denies hematochezia Musc Denies abnormal gait, Denies muscle weakness, Denies numbness, Denies radiating pain into limb and Denies tingling Neuro Denies abnormal gait, Denies dizziness, Denies frequent falls, Denies numbness, Denies tingling and Denies weakness Endo Denies fatigue and Denies palpitations Physical Exam Vital Signs: Last Vital Signs Pulse 89 01/07/24 14:19 BP 130/64 01/07/24 14:19 BMI result Body Mass Index 25.8 Const General: comfortable and no acute distress Orientation/consciousness: patient oriented x3 HEENT Other: Unremarkable Head: Yes normal to inspection Neck Neck: Yes normal visual inspection Chest Chest palpation & inspection: normal inspection of the chest Resp Auscultation: clear to auscultation bilaterally Cardio Palpation: normal PMI Heart sounds: S1 normal heart sound present, S2 normal heart sound present, no gallops, no murmurs and no rubs GI Palpation (GI): Soft to palpation Back/Spine/Pelvis Other: unremarkable Skin General skin exam: no rashes or lesions noted Neuro General: patient oriented x3 Extrem General: Yes normal to inspection Psych Mental Status: mental status grossly normal Assessment & Plan Assessment & Plan (1) Heart palpitations: Comment: Negative cardiac workup including Holter 2021 Code(s): R00.2 - Palpitations (2) Atrial arrhythmia: Code(s): I49.8 - Other specified cardiac arrhythmias Plan Cardiac studies reviewed. Echocardiogram with LVEF of 57%. No wall motion abnormalities and otherwise unremarkable. In the Holter monitor, underlying rhythm is sinus with an average rate of 84/Min. Rare PACs. Brief runs. Overall, atrial arrhythmias causing some palpitations but since resolved completely. Mainly reassurance at this time. No need for any medications. She will call us with concerns. Coding Level of Care Code Est Pt Level 3 (17748) Diagnoses Heart palpitations R00.2 Atrial arrhythmia I49.8
== END 2024-01-07 15:18 | disposition home or self-care (01) ==
PROVIDERS: PCP Internal Medicine; Visit Provider Internal Medicine
DX: R00.2 Palpitations (principal); I49.8 Other specified cardiac arrhythmias
CPT/HCPCS: 99213

== ENCOUNTER → 2024-01-07 14:13 | Outpatient (BNVA) | payer OTHER, SELFPAY | PROVIDERS: PCP Internal Medicine; Visit Provider Internal Medicine ==

== ENCOUNTER 2024-03-15 07:03 | Emergency (ER) | payer OTHER, SELFPAY ==
[2024-03-15 07:07] VITALS: BP 146/80; PULSE 77; RESP 18; TEMP 36.5; O2SAT 98; BMI 25.1
[2024-03-15 07:24] LABS: MANUAL DIFF FLAG NO
[2024-03-15 07:29] LABS: Basophils Absolute Auto 0.1 X10*3/uL (0.0-0.2); Basophils Percent Auto 1.1 % (0-2); Eosinophils Absolute Auto 0.1 X10*3/uL (0.0-0.4); Eosinophils Percent Auto 2.8 % (0-4); Hemoglobin 14.4 g/dl (12.0-16.0); Imm Gran Abs Auto 0.02 X10*3/uL (0.00-0.03); Imm Gran Pct Auto 0.4 % (0.0-0.4); Lymphocytes Absolute Auto 1.5 X10*3/uL (1.2-4.9); Lymphocytes Percent Auto 32.8 % (20-40); Mean Corpuscular HGB Conc 35.1 g/dl (31.0-35.0); Mean Corpuscular Hemoglobin 31.8 pg (27.0-33.0); Mean Corpuscular Volume 90.5 fL (80.0-98.0); Mean Platelet Volume 8.9 fL (9.4-12.3); Monocytes Absolute Auto 0.3 X10*3/uL (0.1-1.2); Monocytes Percent Auto 6.4 % (2-11); Neutrophils Absolute Auto 2.6 x10*3/uL (2.0-8.3); Neutrophils Percent Auto 56.5 % (45-73); Platelet Count 241 X10*3/uL (160-400); Red Blood Count 4.53 X10*6/uL (4.20-5.50); Red Cell Distribution Width 12.2 % (11.0-16.0); White Blood Count 4.7 X10*3/uL (4.8-10.8)
[2024-03-15 07:41] LABS: Alanine Aminotransferase 18 U/L (0-31); Albumin Level 4.4 g/dL (3.5-5.0); Alkaline Phosphatase 61 U/L (39-117); Anion Gap 12 (12-20); Aspartate Amino Transferase 21 U/L (5-31); Bilirubin Total 0.5 mg/dL (0.0-1.0); Blood Urea Nitrogen 14 mg/dL (9-16); Calcium 9.9 mg/dL (8.4-10.2); Carbon Dioxide 28 mmol/L (22-29); Chloride 106 mmol/L (96-108); Creatinine Clr Calc Pharmacy 73.4; Estimated Glomerular Filt Rate > 60; Glucose Random 127 mg/dL (60-115); Potassium 4.5 mmol/L (3.3-5.1); Sodium 141 mmol/L (135-145); Total Protein 7.4 g/dL (6.5-8.0)
[2024-03-15 08:00] VITALS: BP 130/71; PULSE 68; TEMP 36.6; O2SAT 96
--- NOTE | 2024-03-15 08:02 | ED.GENADULT ---
HPI - General Adult General Chief complaint: General Medical Stated complaint: Heaviness in body/face, headache Time Seen by Provider: 03/15/24 07:45 Source: patient Mode of arrival: ambulatory Limitations: no limitations History of Present Illness HPI narrative: Patient is a 63 old female who presents to the emergency department for evaluation. She reports that she woke this morning with a headache, she took 2 Advil and went back to sleep. However, upon awakening she continued to have headache and ?felt weird? she describes it to be a sensation that is hard to explain, but has fullness to her head feels foggy and fatigued, with her body feeling ?heavy?. At this time her headache has resolved, she denies acute vision changes, neck pain, dizziness, unsteady gait. Denies chest pain, shortness of breath, nausea, vomiting, abdominal pain, numbness or tingling of her extremities. She does admit to having a couple of beers last night before going to bed, she states that she has not a daily drinker. She states ?at 1st I thought maybe it was a hangover, but this just seems weird and different?. Related Data Home Medications ?Medication ?Instructions ?Recorded ?Confirmed lactobacillus combination no.9 PO 12/12/23 01/07/24 [Adult 50 Plus Probiotic] multivitamin 1 tab PO DAILY 12/12/23 01/07/24 Allergies Allergy/AdvReac Type Severity Reaction Status Date / Time sulfamethoxazole Allergy Intermediate HIVES Verified 03/15/24 07:10 [From BACTRIM] trimethoprim [From BACTRIM] Allergy Intermediate HIVES Verified 03/15/24 07:10 Sulfa (Sulfonamide Allergy Unknown rash Verified 03/15/24 07:10 Antibiotics) microbid Allergy Mild Headache Uncoded 12/26/23 12:59 Review of Systems Review of Systems: Yes all other systems are reviewed and are negative PMFSH Past Medical History Attestation statement: The following information was validated with the patient. Source: old records reviewed Medical History Shoulder pain, left Annual physical exam COVID-19 Detached retina, left Surgical History H/O esophagogastroduodenoscopy H/O colonoscopy Family History Family History Father HTN (hypertension) Cancer Substance use disorder Paternal Grandfather Heart attack Mother Infectious thyroiditis Alzheimer disease Maternal Grandmother Diabetes Brother Substance use disorder Social History Social History Household Members: None Housing: Apartment Do you presently have visiting nurse or other home services: No Alcohol intake: current Alcohol intake frequency: holidays/special occasions only Alcohol type: beer Patient Tobacco Use Status: Former Tobacco user e-Cigarette/Vaping Use: Never Used Second Hand Smoke Exposure: No Advance Directives: Yes Advance Directives Information Provided: Yes Advance Directives on File: No Do you have a plan to hurt others: No Plan service: No Current occupational status: employed Cognitive needs: No Hearing needs: No Vision needs: Yes Physical Exam ED Vital Signs: Vital Signs - 24 hr 03/15/24 07:07 03/15/24 08:00 Temperature 97.7 F 97.9 F Pulse Rate 77 68 Respiratory Rate 18 Blood Pressure 146/80 H 130/71 Pulse Oximetry 98 96 Oxygen Delivery Method Room Air Room Air BMI result Body Mass Index 25.1 Appearance: Alert.?Oriented to person, place and time. No acute distress.?Normal affect. 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 Neck supple.?? CVS: Heart sounds normal. Normal heart rate and rhythm.? Pulses normal.?? Respiratory: No respiratory distress.? Lung sounds clear to auscultation bilaterally?? Abdomen: Soft and non-tender. Normoactive bowel sounds. Skin: Skin warm and dry.? Normal skin color.?? Extremities: No lower extremity edema.? No calf ttp? Neuro: No focal neurological deficit observed, CN II-XII intact, normal sensory observed, normal coordination observed. Level of consciousness: Appropriate for age. Motor strength: Proximal right upper extremity 5 /5, distal right upper extremity 5 /5, proximal left upper extremity 5 /5, distal left upper extremity 5 /5, right lower extremity 5 /5, left lower extremity 5 /5.? Speech: Normal, Gait: Normal, Eipvjh-fx-irvl test: Normal, Pyqg-jy-ujje test: Normal. Medications Administered Discontinued Medications Generic Name Dose Route Start Last Admin Trade Name Mckinley PRN Reason Stop Dose Admin Sodium Chloride 1,000 mls @ 999 mls/hr 03/15/24 08:00 03/15/24 09:27 Ns IV 03/15/24 09:00 Infused .Q1H1M KATIE Infusion Medical Decision Making Medical Decision Making [facility] Narrative: Patient is a 63 year old female past medical history of SVT and PACs, COVID-19, left detached retina with blindness, who presents to the emergency department for evaluation of a headache which has since resolved and feeling off from her baseline; fatigued, head fullness, foggy, and body feeling heavy as per HPI. She has no focal neurological deficits on examination. She is speaking clear full sentences, ambulatory with a steady gait. Will obtain CBC to evaluate for leukocytosis/ anemia, CMP and lipase to evaluate for abnormal electrolytes /abnormal renal function/ abnormal hepatic/biliary function, EKG to evaluate for ischemia/arrhythmia. Patient received 1 L normal saline IV fluids. Differential Diagnosis Differential Diagnoses: The differential diagnosis associated with the presentation includes (Viral syndrome, tension headache, dehydration, anemia, arrhythmia. Suspect less likely to be CVA.) Admission/Observation Consideration of admission/observation: Escalation of care including admission/observation considered Lab Data [facility] Lab Attestation statement: I reviewed the patient's lab results. CBC revealing a very mild leukopenia 4.7, no anemia, no thrombocytopenia. No electrolyte derangement. No SRAVANTHI. Random serum glucose of 127. LFTs within normal range. Viral testing negative. 03/15/24 07:20 03/15/24 07:20 Labs: Lab Results 03/15/24 Range/Units 07:20 WBC 4.7 L (4.8-10.8) X10*3/uL RBC 4.53 (4.20-5.50) X10*6/uL Hgb 14.4 (12.0-16.0) g/dl Hct 41.0 (37.0-47.0) % MCV 90.5 (80.0-98.0) fL MCH 31.8 (27.0-33.0) pg MCHC 35.1 H (31.0-35.0) g/dl RDW 12.2 (11.0-16.0) % Plt Count 241 (160-400) X10*3/uL MPV 8.9 L (9.4-12.3) fL Immature Gran % (Auto) 0.4 (0.0-0.4) % Neut % (Auto) 56.5 (45-73) % Lymph % (Auto) 32.8 (20-40) % [place] % (Auto) 6.4 (2-11) % Eos % (Auto) 2.8 (0-4) % Baso % (Auto) 1.1 (0-2) % Lymph # (Auto) 1.5 (1.2-4.9) X10*3/uL [place] # (Auto) 0.3 (0.1-1.2) X10*3/uL Eos # (Auto) 0.1 (0.0-0.4) X10*3/uL Baso # (Auto) 0.1 (0.0-0.2) X10*3/uL Abs Immat Gran (auto) 0.02 (0.00-0.03) X10*3/uL Absolute Neuts (auto) 2.6 (2.0-8.3) x10*3/uL Absolute Nucleated RBC 0.000 (0.0-0.012) X10*3/uL Nucleated RBC % (auto) 0.0 (0.0-0.2) /100WBC Sodium 141 (135-145) mmol/L Potassium 4.5 (3.3-5.1) mmol/L Chloride 106 (96-108) mmol/L Carbon Dioxide 28 (22-29) mmol/L Anion Gap 12 (12-20) BUN 14 (9-16) mg/dL Creatinine 0.78 (0.5-1.4) mg/dL Estim Creat Clear Calc 73.4 Estimated GFR > 60 Random Glucose 127 H (60-115) mg/dL Calcium 9.9 (8.4-10.2) mg/dL Total Bilirubin 0.5 (0.0-1.0) mg/dL AST 21 (5-31) U/L ALT 18 (0-31) U/L Alkaline Phosphatase 61 (39-117) U/L Total Protein 7.4 (6.5-8.0) g/dL Albumin 4.4 (3.5-5.0) g/dL Influenza Type A (PCR) NEGATIVE (Negative) Influenza Type B (PCR) NEGATIVE (Negative) RSV RNA Qual (PCR) NEGATIVE (Negative) SARS-CoV-2 RNA (RT-PCR) NEGATIVE (Negative) Independent Interpretation I performed an independent interpretation of an: EKG Interpretation: Rate: 64 Rhythm:? Normal sinus rhythm [place]:? Normal Normal P waves.? Normal [place].?? Normal QRS complex.?? ST T wave :??No ST elevation, no ST depression, T-wave inversion lead III, V1 qTC:425 prior studies:? February 2023 The study has been interpreted contemporaneously by me. Independent Historian Clinical information obtained from an independent historian. History obtained from or confirmed by: Spouse (Present who confirms history) Discharge Plan Discharge Clinical Impression: Dehydration Patient Disposition: Home, Self-Care Instructions: Dehydration (ED) Prescriptions: No Action multivitamin Tablet 1 tab PO DAILY lactobacillus combination no.9 [Adult 50 Plus Probiotic] PO Referrals: Kristine Nielson MD [Primary Care Provider] - Interventions: ED Discharge Assessment Last Done: 03/15/24 09:56 Discharge Date/Time: 03/15/24 09:57 Print Language: Maltese
[2024-03-15] MEDS: 0.9 % Sodium Chloride 1,000 ML 999 ML IV (08:08)
--- NOTE | 2024-03-15 08:11 | ECG_ITS ---
Test Reason : LIGHTHEADED Blood Pressure : / mmHG Vent. Rate : 064 BPM Atrial Rate : 064 BPM P-R Int : 186 ms QRS Dur : 076 ms QT Int : 412 ms P-R-T Axes : 080 028 020 degrees QTc Int : 425 ms Normal sinus rhythm Normal ECG When compared with ECG of 19-MAR-2023 02:53, Premature atrial complexes are no longer Present Referred By: Aria Killian Electronically Signed By:CAROL BEAVERS MD
[2024-03-15 08:12] LABS: Influenza A PCR NEGATIVE (Negative); Influenza B PCR NEGATIVE (Negative); Resp Syncy Virus RNA Qual PCR NEGATIVE (Negative); SARS COV2 PCR INHOUSE NEGATIVE (Negative)
--- NOTE | 2024-03-15 08:15 | PC.NURSE ---
a&ox4. vss and up to date. pt presents to the ED w/ generalized DIETZ/dizziness/lightheadedness since waking up. pt verbalizes drinking alcohol last night and thought that she was hungover. pt self administered advil at home w/ no relief. pt still verbalizing these sx as well as feeling off and full body fullness. neuros intact. pt has diminished vision in left eye baseline - states that there is no change w/ left eye compared to normal. 20gIV placed in the right forearm - IVF administered per provider order. swabs obtained by tech. pt seen by ED provider/aware of plan of care moving forward. partner bedside for support. plan of care ongoing. call lujan placed within reach.
--- NOTE | 2024-03-15 08:28 | PC.NURSE ---
ekg performed by tech.
[2024-03-15 09:56] VITALS: BP 130/71; PULSE 68; RESP 18; TEMP 36.6; O2SAT 96
== END 2024-03-15 09:57 | disposition home or self-care (01) ==
PROVIDERS: Emergency Provider Emergency Medicine; PCP Internal Medicine
DX: E86.0 Dehydration (principal); R51.9 Headache, unspecified; I47.10 Supraventricular tachycardia, unspecified; Z03.818 Encounter for observation for suspected exposure to other biological agents ruled out
CPT/HCPCS: 0241U; 80053; 85025; 93005; 96360; 99284

== ENCOUNTER → 2024-03-15 08:11 | Outpatient (BNV) | payer OTHER, SELFPAY | PROVIDERS: Emergency Provider Emergency Medicine; PCP Internal Medicine; Visit Provider Internal Medicine Cardiovascular Disease | DX: R42 Dizziness and giddiness (principal) | CPT/HCPCS: 93010 ==

== ENCOUNTER 2025-01-30 01:04 | Inpatient (IN) | payer OTHER, SELFPAY ==
[2025-01-30] VITALS (7 sets, daily range): BP systolic 105–158; BP diastolic 57–92; PULSE 64–111; RESP 16–20; TEMP 36.1–36.9; O2SAT 95–98; BMI 25.2; BMI 27.4
--- NOTE | ~2025-01-30 | CT_ITS ---
CLINICAL HISTORY: RLQ pain, appy? CT abdomen and pelvis with contrast Comparison: None Findings: No consolidation or effusion. Trace bilateral lower lobe subsegmental atelectasis. Indeterminate 1.6 cm left adrenal nodule. The gallbladder and solid organs are otherwise within normal limits. No hydronephrosis or hydroureter. No bowel obstruction, pneumoperitoneum, or pneumatosis. Pelvic contents unremarkable. No bladder wall thickening. The base of the appendix is dilated up to 10 mm in diameter with mild adjacent edema. The remainder of the appendix appears normal caliber. The appendix is present at the right lower abdominal quadrant along the inferior margin of the cecum. [id number]-[id number] T11 vertebral body compression deformity present. This appears to be chronic in etiology. Grade 1 anterolisthesis of L4 on L5 present. IMPRESSION: 1. Dilation of the base of the appendix up to 10 mm in diameter with mild adjacent edema, suggesting acute appendicitis. The remainder of the appendix appears nondilated. No periappendiceal abscess. 2. [id number]-os-[id number] T11 vertebral body compression deformity. This appears to be chronic in etiology, however clinical correlation is advised given the lack of comparison imaging. This document has been electronically signed by: Justo Jane MD on 01/30/2025 03:47:50
[2025-01-30 01:31] LABS: Basophils Absolute Auto 0.1 X10*3/uL (0.0-0.2); Basophils Percent Auto 0.6 % (0-2); Eosinophils Absolute Auto 0.2 X10*3/uL (0.0-0.4); Eosinophils Percent Auto 1.6 % (0-4); Hematocrit 40.4 % (37.0-47.0); Imm Gran Abs Auto 0.04 X10*3/uL (0.00-0.03); Imm Gran Pct Auto 0.3 % (0.0-0.4); Lymphocytes Absolute Auto 2.4 X10*3/uL (1.2-4.9); Lymphocytes Percent Auto 19.6 % (20-40); MANUAL DIFF FLAG NO; Mean Corpuscular HGB Conc 34.7 g/dl (31.0-35.0); Mean Corpuscular Hemoglobin 31.1 pg (27.0-33.0); Mean Corpuscular Volume 89.8 fL (80.0-98.0); Mean Platelet Volume 8.9 fL (9.4-12.3); Monocytes Absolute Auto 0.9 X10*3/uL (0.1-1.2); Monocytes Percent Auto 6.9 % (2-11); Neutrophils Absolute Auto 8.8 x10*3/uL (2.0-8.3); Platelet Count 237 X10*3/uL (160-400); Red Cell Distribution Width 12.4 % (11.0-16.0); White Blood Count 12.4 X10*3/uL (4.8-10.8)
--- NOTE | 2025-01-30 01:35 | PC.NURSE ---
pt a&ox3, respirations even and unlabored. pt reports sudden onset of lower right quadrant pain when laying down to sleep. pt reports increased pain and tenderness to the RLQ on palpation. pt denies n/v/d. 20g placed in left wrist, labs obtained. teri giordano at bedside.
[2025-01-30] MEDS: ondansetron HCL 4 MG/2 ML VIAL IVPUSH (01:37)
[2025-01-30] MEDS: Morphine Sulfate 4 MG/ML CARTRIDGE IVPUSH (01:37)
[2025-01-30] MEDS: 0.9 % Sodium Chloride 1,000 ML 999 ML IV (01:39)
--- OUTSIDE RECORDS SUMMARY | 2025-01-30 01:50 | XMS_ITS | Continuity of Care Document ---
Author Organization [facility] Address [address] [place] [address] Dr Guerrero 1000 [address] [place] [address] Phone Care Team Providers Care Social Worker Delinquency Prevention Name Role Phone Cruz ELLER, JACQUI, Josue [...] Providers Copied on Encounter [facility], [address] [place] [address] Dr Guerrero 1000[address], [place], [id number], [place] tel:[phone] CVR - - [place] No Information 4 Cruz ELLER, JACQUI, DAVID Salas. [address] [place] [address] 302, [place], [id number], [place]. tel:[phone] Office/Outpt E&M Established 15 Mins- CT & [place] [facility], [address] [place] [address] Dr Guerrero 1000SuSheeba shafer MD, [id number], [place] tel:[phone] CVR - [place] - [place] Varicose veins of bilateral lower extremities with other complications 4 Cruz ELLER RVT, DAVID Salas. [address] [place] [address], [facility] 302, Hussain sanchez [place], [id number], [place]. tel:[phone] Referring Provider: Stoney Perez MD S, [address] [place] [address] [address], [place], [address]. tel:[phone] [facility], [address] [place] [address] Dr Guerrero 1000Suite [place] Wiley [place], [id number], [place] tel:[phone] CVR - [place] Varicose veins of left lower extremity with pain 4 Cruz ELLER RVT, RPVI Robert. [address] [place] [address], [facility] [place], [id number], [place]. tel:[phone] Referring Provider: Kristine Nielson MD S, [address] [place] [address], [place], [address]. tel:[phone] [facility], [address] [place] [address] Dr Guerrero 1000Suite [place] Wiley [place], [id number], [place] tel:[phone] CVR - [place] - [place] Encounter for follow-up examination after completed treatment for conditions other than malignant neVaricose veins of left lower extremity with pain 4 Cruz LELER RVT, RPVI Robert. [address] [place] [address], [place], [id number], [place]. tel:[phone] Referring Provider: Kristine Nielson MD S, [address] [place] [address], [place], [address]. tel:[phone] [facility], [address] [place] [address] Dr Guerrero 1000Suite [place] Wiley MD, [id number], [place] tel:[phone] CVR - [place] Varicose veins of left lower extremity with other complications Brandon-0 4 Jarrod Pierre. [address] [place] [address] [address], [facility] [place], [id number], [place]. tel:[phone] Referring Provider: Kristine Nielson MD S, [address] [place] [address], [place], [address]. tel:[phone] [facility], [address] [place] [address] [address] 1000She[place] MD, [id number], [place] tel:[phone] CVR - [place] Encounter for follow-up examination after completed treatment for conditions other than malignant neVaricose veins of left lower extremity with pain Brandon-0 4 Cruz ELLER, JACQUI, DAVID Salas. [address] [place] [address], [facility] [place], [id number], [place]. tel:[phone] Referring Provider: Kristine Nielson MD S, [address] [place] [address], [place], [address]. tel:[phone] [facility], [address] [place] [address] Dr Guerrero 1000[place] [address] [place], [id number], [place] tel:[phone] CVR - [place] Varicose veins of left lower extremity with other complications 4 Cruz ELLER, JACQUI, DAVID Salas. [address] [place] [address] 302, [facility] [place], [id number], [place]. tel:[phone] Referring Provider: Kristine Nielson MD S, [address] [place] [address], [place], [address]. tel:[phone] Offic/outpt E&m Estab 5 Min Trial- Telemedicine CT & [place] [facility], [address] [place] [address] Dr Guerrero 1000[address] 1000Sheeba MD, [id number], [place] tel:[phone] CVR - [place] Localized edemaCramp and spasmRestless legs syndromeVenou s insufficiency (chronic) (peripheral) 4 Jarrod Pierre. [address] [facility], [address], [facility] [place], [id number], [place]. tel:[phone] Referring Provider: Kristine Nielson MD S, [address] [facility], [place], [address]. tel:[phone] Offic Cons New/estab Mod 40 Mi [facility], [address] [place] [address] [facility] 1000[address] 1000She[place], [id number], [place] tel:[phone] CVR - [place] Varicose veins of left lower extremity with other complications Pain in left lower legPain in left legLocalized edemaRestless legs syndromeCramp and spasm 4 Cruz ELLER, JACQUI, DAVID Salas. [address] [place] [address], [place], [id number], [place]. tel:[phone] [facility], [address] [place] [address] [facility] [address], [place], [id number], [place] tel:[phone] CVR - [place] Varicose veins of left lower extremity with pain 4 Cruz ELLER, JACQUI, DAVID Salas. [address] [place] [address], [place], [id number], [place]. tel:[phone] Family History Family Member Type Diagnosis Age At Onset No Information Payers Payer name Insurance type Covered alliance party ID Josee wiley(s) [facility] [id number] Social History Type Description Quantity Date Captured [...] Information Instructions Date Instruction Additional Infor melodynarendra Diet education Related to Body mass index (BMI) 25.0-25.9, adult Lifestyle education Related to B dae mass index (BMI) 25.0-25.9, adult Giving Encouragement to exercise Related to Body mass index (BMI) 25.0-25.9, adult Pre and post instruc tions reviewed and provided Related to Varicose veins of bilateral lower extremities with other complications Patient education booklet given Related to Varicose veins of bilateral lower extremities with other complications Compression stocking usage as conservative measure Related [...]
--- OUTSIDE RECORDS SUMMARY | 2025-01-30 01:50 | XMS_ITS | Clinical Summary ---
Author Organization [facility] Address [address] [place] [address] Care Team Providers Care Bath House Attendant Name Role Phone Unavailable Primary Care Provider Unavailabl e Social History Tobacco Use Types Packs/Day Years Used Date Smoking Tobacco: Never Assessed Comments Unknown Sex and Gender Information Value Date Recorded Sex Assigned at Not on file Legal Sex Female 6:37 PM EST Gender Identity Not on file Sexual Orientation Not on file Plan of Treatment Health Maintenance Due Date Last Done Comments Hepatitis C Virus Screening 1960 HIV Screening 11/21/1972 DTaP/Tdap/Td Vaccines (1 - Tdap) 11/21/1978 Pneumococcal Vaccines 50+ (1 of 1 - PCV) 11/21/2009 Zoster (Shingles) Vaccine (1 of 2) 11/21/2009 COVID-19 Vaccine ( - 2023-2 5 season) 2024 RSV Vaccine 60 years and old er and Patients (1 - 1-dose 75+ series) 11/21/2034 Hepatitis B Vaccines Aged Out No long er eligible based on patient's age to complete this topic
[2025-01-30 01:51] LABS: Alanine Aminotransferase 26 U/L (0-31); Albumin Level 4.2 g/dL (3.5-5.0); Alkaline Phosphatase 58 U/L (39-117); Anion Gap 16 (12-20); Aspartate Amino Transferase 43 U/L (5-31); Bilirubin Total 0.3 mg/dL (0.0-1.0); Blood Urea Nitrogen 19 mg/dL (9-16); Calcium 9.4 mg/dL (8.4-10.2); Carbon Dioxide 22 mmol/L (22-29); Chloride 107 mmol/L (96-108); Creatinine Clr Calc Pharmacy 68.1; Estimated Glomerular Filt Rate > 60; Glucose Random 107 mg/dL (60-115); Lipase 26 U/L (8-78); Magnesium 2.1 mg/dL (1.6-2.6); Potassium 5.1 mmol/L (3.3-5.1); Sodium 140 mmol/L (135-145); Total Protein 7.4 g/dL (6.5-8.0)
[2025-01-30] MEDS: iohexoL 350 MG/ML 100 ML INFUS..BTL 85 ML IV (02:23)
--- NOTE | 2025-01-30 02:41 | ED.GENADULT ---
HPI - General Adult General Chief complaint: Abdominal Pain Stated complaint: right side pain Time Seen by Provider: 01/30/25 01:21 Source: patient Limitations: no limitations History of Present Illness ED Provider: Sunshine Mendez PA-C HPI narrative: 64-year-old female presents with the abdominal pain. Patient states she developed severe right lower quadrant discomfort this evening. Patient states the pain is sharp at times and nonradiating. Pain worse with movement. Associated nausea and shaking chills. Denies dysuria, hematuria, history of kidney stones. Denies active vomiting, diarrhea or fever. Denies constipation, abdominal distention or inability to pass flatus. Related Data Home Medications ?Medication ?Instructions ?Recorded ?Confirmed lactobacillus combination no.9 1 cap PO DAILY 12/12/23 01/30/25 [Adult 50 Plus Probiotic] multivitamin 1 tab PO DAILY 12/12/23 01/30/25 erythromycin 5 mg/gram (0.5 %) eye 1 appl ophthalmic-Left BEDTIME 01/30/25 01/30/25 ointment omega 3-qcs-yub-fish oil 1,000 mg 1 cap PO DAILY 01/30/25 01/30/25 (120 mg-180 mg) capsule (Fish Oil) Allergies Allergy/AdvReac Type Severity Reaction Status Date / Time sulfamethoxazole Allergy Intermediate HIVES Verified 01/30/25 01:15 [From BACTRIM] trimethoprim [From BACTRIM] Allergy Intermediate HIVES Verified 01/30/25 01:15 Sulfa (Sulfonamide Allergy Unknown rash Verified 01/30/25 01:15 Antibiotics) microbid Allergy Mild Headache Uncoded 12/26/23 12:59 Review of Systems Review of Systems: Yes all other systems are reviewed and are negative Constitutional: Constitutional: Reports chills, Denies fatigue and Denies fever(s) Cardiovascular: Cardiovascular: Denies chest pain and Denies dyspnea Respiratory: Respiratory: Denies cough and Denies dyspnea Gastrointestinal: Gastrointestinal: Reports abdominal pain, Denies constipation, Denies diarrhea, Reports nausea and Denies vomiting Genitourinary: Genitourinary: Denies hematuria and Denies dysuria Endocrine: Endocrine: Denies fatigue COUNT INCLUDES THE [facility] Past Medical History Attestation statement: The following information was validated with the patient. Medical History Shoulder pain, left Annual physical exam COVID-19 Detached retina, left Surgical History H/O esophagogastroduodenoscopy H/O colonoscopy Family History Family History Father HTN (hypertension) Cancer Substance use disorder Paternal Grandfather Heart attack Mother Infectious thyroiditis Alzheimer disease Maternal Grandmother Diabetes Brother Substance use disorder Social History Social History Household Members: Children [facility] Do you presently have visiting nurse or other home services: No Alcohol intake: current Alcohol intake frequency: holidays/special occasions only Alcohol type: beer Patient Tobacco Use Status: Former Tobacco user e-Cigarette/Vaping Use: Never Used Second Hand Smoke Exposure: No Substance Use Type: Marijuana service: No Current occupational status: employed Cognitive needs: No Hearing needs: No Vision needs: Yes Physical Exam ED Vital Signs: Vital Signs - 24 hr 01/30/25 01:13 01/30/25 03:32 01/30/25 04:00 Temperature 97.9 F 97.9 F 98.4 F Pulse Rate 111 H 99 95 Respiratory Rate 20 16 17 Blood Pressure 158/92 H 105/61 124/75 Pulse Oximetry 96 95 98 Oxygen Delivery Method Room Air Room Air Room Air 01/30/25 05:33 01/30/25 06:37 Temperature 97.6 F 97.8 F Pulse Rate 86 78 Respiratory Rate 17 17 Blood Pressure 111/67 105/57 L Pulse Oximetry 98 95 Oxygen Delivery Method Room Air Room Air BMI result Body Mass Index 25.2 Const Other: Alert Orientation/consciousness: patient oriented x3 Resp Effort & Inspection: normal respiratory effort Cardio Other: Normal peripheral perfusion GI Other: Abdomen is soft, nondistended, some degree of referred pain from left lower abdomen to the right, moderate to severe focal tenderness in right lower abdomen with moderate involuntary guarding, the patient began to cry with palpation of the abdomen Skin Other: Warm dry no rash Neuro General: patient oriented x3, gait normal, no focal motor deficits and CN's II-XI intact bilaterally Psych Other: Cooperative Course Reevaluation(s) Reevaluation #1: Time: 04:16 Date: 01/30/25 Provider: BERNIE Chino Patient in physician observation for surgical needs, pending consult by Dr. Gonzalez, found to have acute appendicitis on CT scan. VS stable. Will continue to monitor. Transition of care to Dr. Saenz at the time of sign-out. Reevaluation #2: [id number] 30, 2025 Carlos Alberto Anguiano MD: Signed out pending evaluation by the attending surgeon. [id number] Patient accepted by attending surgeon for acute appendicitis no complications. Consultations Consultation #1: Messaging Dr. Gonzalez, making the patient NPO, starting antibiotics,....... He will be seeing the patient 1st thing in the morning, he would like her held in the emergency room until then Time: 03:59 Medications Administered Generic Name Dose Route Start Last Admin Trade Name Freq PRN Reason Stop Dose Admin Acetaminophen 1,000 mg in 100 mls @ 400 mls/hr 01/30/25 06:38 01/30/25 11:26 Ofirmev IV Infused Q6H PRN Infusion Pain, Mild (Pain Scale 1-3) Piperacillin Sod/Tazobactam 50 mls @ 100 mls/hr 01/30/25 11:00 02/01/25 05:35 Sod 3.375 gm/ Sodium Chloride IV Infused Q6H KATIE Infusion Sodium Chloride 3 ml 01/30/25 08:24 02/01/25 08:17 0.9 % Sodium Chloride Flush 3 Ml Syringe IVFLUSH 3 ml QSHIFT KATIE Administration Discontinued Medications Generic Name Dose Route Start Last Admin Trade Name Freq PRN Reason Stop Dose Admin Sodium Chloride 1,000 mls @ 999 mls/hr 01/30/25 01:30 01/30/25 03:04 Ns IV 01/30/25 02:30 Infused .Q1H1M KATIE Infusion Piperacillin Sod/Tazobactam 50 mls @ 100 mls/hr 01/30/25 04:01 01/30/25 05:22 Sod 3.375 gm/ Sodium Chloride IV 01/30/25 04:30 Infused ONCE ONE Infusion Dextrose/Lactated Ringer's 1,000 mls @ 125 mls/hr 01/30/25 06:45 01/31/25 08:31 D5lr IVCONT Infused .Q8H KATIE Infusion Iohexol 85 ml 01/30/25 02:23 01/30/25 02:23 Iohexol 350 Mg/Ml 100 Ml Infus..Btl IV 01/30/25 02:24 85 ml ONCE ONE Administration Morphine Sulfate 4 mg 01/30/25 01:30 01/30/25 01:37 Morphine Sulfate 4 Mg/Ml Cartridge IVPUSH 01/30/25 01:31 4 mg ONCE ONE Administration Protocol Ondansetron HCl 4 mg 01/30/25 01:30 01/30/25 01:37 Ondansetron Hcl 4 Mg/2 Ml Vial IVPUSH 01/30/25 01:31 4 mg ONCE ONE Administration Medical Decision Making Medical Decision Making MDM Narrative: 64-year-old female presents with the abdominal pain. Patient states she developed severe right lower quadrant discomfort this evening. Patient states the pain is sharp at times and nonradiating. Pain worse with movement. Associated nausea and shaking chills. Denies dysuria, hematuria, history of kidney stones. Denies active vomiting, diarrhea or fever. Denies constipation, abdominal distention or inability to pass flatus. No known chronic issues History: Per patient I have considered the following differential diagnoses: Appendicitis, sigmoid diverticulitis, renal colic, bowel obstruction Plan: I am most concerned for potential appendicitis, we will be obtaining a CT scan, giving morphine Zofran and fluid. Screening labs we will be obtained as well. Thought about renal colic, however the patient never had any flank pain that migrated to the right lower quadrant, she has no symptoms, she has no history of kidney stones, we will add a urinalysis. This could be sigmoid diverticulitis given distribution. The patient has no symptoms or exam findings consistent with a SBO. I have independently reviewed the following tests: Labs: Slight leukocytosis, not anemic, no electrolyte abnormality, CT abdomen and pelvis:MPRESSION: 1. Dilation of the base of the appendix up to 10 mm in diameter with mild adjacent edema, suggesting acute appendicitis. The remainder of the appendix appears nondilated. No periappendiceal abscess. 2. [id number] T11 vertebral body compression deformity. This appears to be chronic in etiology, however clinical correlation is advised given the lack of comparison imaging. This document has been electronically signed by: Justo Jane MD on 01/30/2025 03:47:50 Lab Data 01/31/25 08:16 01/31/25 08:16 Labs: Lab Results 01/30/25 01/30/25 01/30/25 Range/Units 01:26 04:15 04:30 WBC 12.4 H (4.8-10.8) X10*3/uL RBC 4.50 (4.20-5.50) X10*6/uL Hgb 14.0 (12.0-16.0) g/dl Hct 40.4 (37.0-47.0) % MCV 89.8 (80.0-98.0) fL MCH 31.1 (27.0-33.0) pg MCHC 34.7 (31.0-35.0) g/dl RDW 12.4 (11.0-16.0) % Plt Count 237 (160-400) X10*3/uL MPV 8.9 L (9.4-12.3) fL Immature Gran % (Auto) 0.3 (0.0-0.4) % Neut % (Auto) 71.0 (45-73) % Lymph % (Auto) 19.6 L (20-40) % [place] % (Auto) 6.9 (2-11) % Eos % (Auto) 1.6 (0-4) % Baso % (Auto) 0.6 (0-2) % Lymph # (Auto) 2.4 (1.2-4.9) X10*3/uL [place] # (Auto) 0.9 (0.1-1.2) X10*3/uL Eos # (Auto) 0.2 (0.0-0.4) X10*3/uL Baso # (Auto) 0.1 (0.0-0.2) X10*3/uL Abs Immat Gran (auto) 0.04 H (0.00-0.03) X10*3/uL Absolute Neuts (auto) 8.8 H (2.0-8.3) x10*3/uL Absolute Nucleated RBC 0.000 (0.0-0.012) X10*3/uL Nucleated RBC % (auto) 0.0 (0.0-0.2) /100WBC Sodium 140 (135-145) mmol/L Potassium 5.1 (3.3-5.1) mmol/L Chloride 107 (96-108) mmol/L Carbon Dioxide 22 (22-29) mmol/L Anion Gap 16 (12-20) BUN 19 H (9-16) mg/dL Creatinine 0.83 (0.5-1.4) mg/dL Estim Creat Clear Calc 68.1 Estimated GFR > 60 Random Glucose 107 (60-115) mg/dL Lactic Acid 2.2 H* (0.5-2.0) mmol/L Calcium 9.4 (8.4-10.2) mg/dL Magnesium 2.1 (1.6-2.6) mg/dL Total Bilirubin 0.3 (0.0-1.0) mg/dL AST 43 H (5-31) U/L ALT 26 (0-31) U/L Alkaline Phosphatase 58 (39-117) U/L Total Protein 7.4 (6.5-8.0) g/dL Albumin 4.2 (3.5-5.0) g/dL Lipase 26 (8-78) U/L Urine Color Yellow Urine Appearance Clear Urine pH 5.5 (5.0-9.0) Ur Specific [place] >= 1.030 H (1.005-1.025) Urine Protein Negative (Neg-Trace) mg/dL Urine Glucose (UA) Negative (Negative) mg/dL Urine Ketones Negative (Negative) mg/dL Urine Blood Negative (Negative) Urine Nitrite Negative (Negative) Ur Leukocyte Esterase Negative (Negative) Discharge Plan Discharge Clinical Impression: Acute appendicitis Qualifiers: Acute appendicitis type: with localized peritonitis Appendicitis gangrene presence: without gangrene Appendicitis perforation presence: without perforation Appendicitis abscess presence: without abscess Qualified Code(s): K35.30 - Acute appendicitis with localized peritonitis, without perforation or gangrene Patient Disposition: Admitted As Inpatient Interventions: Admission Worksheet (ED) Last Done: 01/30/25 06:01 Discharge Date/Time: 01/30/25 08:28
[2025-01-30 04:38] LABS: Appearance Urine Clear; Color Urine Yellow; Glucose Urine UA Negative (Negative); Leukocyte Esterase Urine Negative (Negative); Nitrite Urine Negative (Negative); PH 5.5 (5.0-9.0); Specific Gravity - Urine >= 1.030 (1.005-1.025); Urine Blood Negative (Negative); Urine Ketones Negative (Negative); Urine Protein Negative (Neg-Trace)
[2025-01-30] MEDS: Piperacillin Sodium/Tazobactam 3.375 GM in 0.9 % Sodium Chloride 50 ML IV ×4 (04:52→22:13)
[2025-01-30 04:53] LABS: Lactic Acid 2.2 mmol/L (0.5-2.0)
[2025-01-30 06:36] LABS: Reflex Lactate? Lactic Acid Added
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
[2025-01-30 07:06] LABS: ~Lactic Acid-LAB USE ONLY 1.2 mmol/L (0.5-2.0)
[2025-01-30] MEDS: Dextrose 5 % and Lactated Ring 1,000 ML 125 ML IVCONT ×3 (07:23→22:54)
--- NOTE | 2025-01-30 09:04 | PHA.MEDREC ---
Addendum entered by Roxanna Quispe RPh 01/30/25 09:36: reviewed by [facility]. Original Note: Pharmacy Consult ? Medication Reconciliation Pharmacy has completed the medication reconciliation. Spoke with patient to confirm. She has not picked up clobetasol from the pharmacy. She uses erythromycin ointment in her left eye every night at bedtime. She did not have it yesterday.
[2025-01-30] MEDS: Acetaminophen 1,000 MG/100 ML PIGGYBACK 400 MG IV (10:53)
--- NOTE | 2025-01-30 15:51 | MHC.CM.PN ---
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
[2025-01-30] MEDS: 0.9 % Sodium Chloride Flush 3 ML SYRINGE IVFLUSH (20:02)
[2025-01-31 02:00] VITALS: RESP 16
[2025-01-31 04:23] VITALS: BP 129/73; PULSE 63; RESP 18; TEMP 36.7; O2SAT 96
[2025-01-31] MEDS: Piperacillin Sodium/Tazobactam 3.375 GM in 0.9 % Sodium Chloride 50 ML IV ×4 (04:27→23:21)
[2025-01-31 06:45] VITALS: BP 130/64; PULSE 73; RESP 16; TEMP 36.1; O2SAT 94
[2025-01-31] MEDS: Dextrose 5 % and Lactated Ring 1,000 ML 125 ML IVCONT (07:28)
--- NOTE | 2025-01-31 08:19 | P.PNGS_ITS ---
Subjective Subjective Date of Service: 01/31/25 Interval history: Patient feels much improved. His moving without significant pain. Only has some pain when she palpates the right lower quadrant deeply. Denies any nausea or vomiting. Was able to tolerate clear liquids without nausea or vomiting. She has reconsidered however and wishes to proceed with surgery because of her planned travels later this year. Unfortunately she ate this morning. Physical Exam 2 Vital Signs: Vital Signs: Last Vital Signs Temp 96.9 F 01/31/25 06:45 Pulse 73 01/31/25 06:45 Resp 16 01/31/25 06:45 BP 130/64 01/31/25 06:45 Pulse Ox 94 01/31/25 06:45 O2 Del Method Room Air 01/31/25 06:45 BMI result Body Mass Index 27.4 Const: General: comfortable Nutritional Appearance: well nourished O rientation/consciousness: patient oriented x3 Resp: Effort & Inspection: normal respiratory effort GI: Inspection: Yes normal to inspection Palpation (GI): Soft to palpation, Tenderness to palpation present (GI) in the RLQ, no guarding, not rigid and No hepatosplenomegaly present Percussion: Yes normal to percussion A uscultation: normal bowel sounds Neuro: General: patient oriented x3 Extrem: General: Yes normal to inspection Objective Data Active Medications Calcium Carbonate (Calcium Carbonate 750 Mg Tab.Chew) 750 mg PO Q4H PRN PRN Reason: Heartburn Hydromorphone HCl (Hydromorphone Hcl 0.5 Mg/0.5 Ml Syringe) 0.5 mg IVPUSH Q3H PRN; Protocol PRN Reason: Pain, Severe (Pain Scale 7-10) Acetaminophen (Ofirmev) 1,000 mg in 100 mls @ 400 mls/hr IV Q6H PRN PRN Reason: Pain, Mild (Pain Scale 1-3) Last Infusion: 01/30/25 11:26 Dose: Infused Documented By: WESTON Dextrose/Lactated Ringer's (D5lr) 1,000 mls @ 125 mls/hr IVCONT .Q8H KATIE Last Admin: 01/31/25 07:28 Dose: 125 mls/hr Documented By: WESTON Piperacillin Sod/Tazobactam (Sod 3.375 gm/ Sodium Chloride) 50 mls @ 100 mls/hr IV Q6H [facility] Last Infusion: 01/31/25 04:57 Dose: Infused Documented By: VERO Magnesium Hydroxide (Milk Of Magnesia 30 Ml Oral.Susp) 30 ml PO DAILY PRN PRN Reason: Constipation Melatonin (Melatonin 3 Mg Tablet) 6 mg PO BEDTIME PRN PRN Reason: Insomnia Ondansetron HCl (Ondansetron Hcl 4 Mg/2 Ml Vial) 4 mg IVPUSH QID PRN PRN Reason: Nausea Oxycodone HCl (Oxycodone Hcl Immed Release 5 Mg Tablet) 5 mg PO Q6H PRN PRN Reason: Pain, Moderate(Pain Scale 4-6) Sodium Chloride (0.9 % Sodium Chloride Flush 3 Ml Syringe) 3 ml IVFLUSH QSHIFT [facility] Last Admin: 01/31/25 07:30 Dose: Not Given Documented By: WESTON Non-Admin Reason: IV Running Labs 01/30/25 01:26 01/30/25 01:26 Microbiology Microbiology Results: Microbiology 01/30/25 04:30 Blood Culture - Preliminary Blood - Venous No growth after 24 hours. 01/30/25 04:30 Blood Culture - Preliminary Blood - Venous No growth after 24 hours. Procedures Date of Service Date of Service: 01/31/25 Progress Note: A&P Assessment and plan (1) Acute appendicitis: Status: Acute Plan Overall the patient is much improved with IV antibiotics and is tolerating p.o. well. Patient is now reconsidered her options and wishes to proceed with surgery. Unfortunately the patient has been eating therefore I will add her on the schedule for tomorrow. I will give her diet today but make NPO after midnight. I reviewed the procedure, risks, and alternatives, and she consents to a laparoscopic or possible open appendectomy. Time Spent With Patient Time: Total time managing care of this patient today ____ minutes. Quality Stroke Does the patient have a stroke diagnosis?: No VTE Prior VTE?: No VTE Risk Level:: Surgical - low VTE Device Contraindication: N/A - Device Ordered VTE Drug Contraindication: Treatment Not Indicated
[2025-01-31 08:41] LABS: MANUAL DIFF FLAG NO
[2025-01-31 08:43] LABS: Basophils Absolute Auto 0.1 X10*3/uL (0.0-0.2); Basophils Percent Auto 0.9 % (0-2); Eosinophils Absolute Auto 0.1 X10*3/uL (0.0-0.4); Eosinophils Percent Auto 2.1 % (0-4); Hematocrit 41.9 % (37.0-47.0); Hemoglobin 14.1 g/dl (12.0-16.0); Imm Gran Abs Auto 0.02 X10*3/uL (0.00-0.03); Imm Gran Pct Auto 0.4 % (0.0-0.4); Lymphocytes Absolute Auto 1.4 X10*3/uL (1.2-4.9); Lymphocytes Percent Auto 25.2 % (20-40); Mean Corpuscular HGB Conc 33.7 g/dl (31.0-35.0); Mean Corpuscular Volume 92.1 fL (80.0-98.0); Monocytes Absolute Auto 0.3 X10*3/uL (0.1-1.2); Monocytes Percent Auto 6.1 % (2-11); Neutrophils Absolute Auto 3.7 x10*3/uL (2.0-8.3); Neutrophils Percent Auto 65.3 % (45-73); Platelet Count 236 X10*3/uL (160-400); Red Blood Count 4.55 X10*6/uL (4.20-5.50); Red Cell Distribution Width 12.3 % (11.0-16.0); White Blood Count 5.6 X10*3/uL (4.8-10.8)
[2025-01-31 09:00] LABS: Anion Gap 10 (12-20); Blood Urea Nitrogen 7 mg/dL (9-16); Calcium 9.4 mg/dL (8.4-10.2); Carbon Dioxide 27 mmol/L (22-29); Chloride 109 mmol/L (96-108); Creatinine Clr Calc Pharmacy 86.1; Estimated Glomerular Filt Rate > 60; Glucose Random 104 mg/dL (60-115); Potassium 3.8 mmol/L (3.3-5.1); Sodium 142 mmol/L (135-145)
[2025-01-31 15:47] VITALS: BP 125/74; PULSE 87; RESP 16; TEMP 36.7; O2SAT 98
[2025-01-31] MEDS: 0.9 % Sodium Chloride Flush 3 ML SYRINGE IVFLUSH ×2 (16:15→23:21)
[2025-01-31 22:00] VITALS: BP 132/66; PULSE 86; RESP 18; TEMP 37.1; O2SAT 96
[2025-02-01] VITALS (10 sets, daily range): BP systolic 114–145; BP diastolic 56–79; PULSE 76–99; RESP 15–20; TEMP 36.3–36.9; O2SAT 92–98
[2025-02-01] MEDS: Piperacillin Sodium/Tazobactam 3.375 GM in 0.9 % Sodium Chloride 50 ML IV ×2 (05:03→11:04)
[2025-02-01] MEDS: 0.9 % Sodium Chloride Flush 3 ML SYRINGE IVFLUSH ×2 (08:17→15:45)
--- NOTE | 2025-02-01 08:34 | PM.PNGS ---
Subjective Subjective Date of Service: 02/01/25 Patient reports: feels better, flatus and no bowel movement Interval history: Patient doing well today, comfortable at rest. She denies current abdominal pain, bloating, nausea or vomiting. She reports ambulating. patient continues to be agreeable to surgical intervention. Physical Exam Vital Signs: Vital Signs: Last Vital Signs Temp 98.1 F 02/01/25 07:11 Pulse 83 02/01/25 07:11 Resp 18 02/01/25 07:11 BP 145/68 H 02/01/25 07:11 Pulse Ox 95 02/01/25 07:11 O2 Del Method Room Air 02/01/25 07:11 BMI result Body Mass Index 27.4 Const: General: comfortable and no acute distress Orientation/consciousness: patient oriented x3 Resp: Effort & Inspection: normal respiratory effort and able to speak in complete sentences GI: Inspection: No distended Palpation (GI): Soft to palpation, not firm, Tenderness to palpation present (GI) in the RLQ and Rovsing's sign positive, no guarding and not rigid Neuro: General: patient oriented x3 Objective Data Active Medications Calcium Carbonate (Calcium Carbonate 750 Mg Tab.Chew) 750 mg PO Q4H PRN PRN Reason: Heartburn Hydromorphone HCl (Hydromorphone Hcl 0.5 Mg/0.5 Ml Syringe) 0.5 mg IVPUSH Q3H PRN; Protocol PRN Reason: Pain, Severe (Pain Scale 7-10) Acetaminophen (Ofirmev) 1,000 mg in 100 mls @ 400 mls/hr IV Q6H PRN PRN Reason: Pain, Mild (Pain Scale 1-3) Last Infusion: 01/30/25 11:26 Dose: Infused Documented By: WESTON Piperacillin Sod/Tazobactam (Sod 3.375 gm/ Sodium Chloride) 50 mls @ 100 mls/hr IV Q6H [facility] Last Infusion: 02/01/25 05:35 Dose: Infused Documented By: LACEY Magnesium Hydroxide (Milk Of Magnesia 30 Ml Oral.Susp) 30 ml PO DAILY PRN PRN Reason: Constipation Melatonin (Melatonin 3 Mg Tablet) 6 mg PO BEDTIME PRN PRN Reason: Insomnia Ondansetron HCl (Ondansetron Hcl 4 Mg/2 Ml Vial) 4 mg IVPUSH QID PRN PRN Reason: Nausea Oxycodone HCl (Oxycodone Hcl Immed Release 5 Mg Tablet) 5 mg PO Q6H PRN PRN Reason: Pain, Moderate(Pain Scale 4-6) Sodium Chloride (0.9 % Sodium Chloride Flush 3 Ml Syringe) 3 ml IVFLUSH QSHIFT [facility] Last Admin: 02/01/25 08:17 Dose: 3 ml Documented By: ROSALIND Labs 01/31/25 08:16 01/31/25 08:16 Labs: Laboratory Results - last 24 hr 01/31/25 08:16 MCV 92.1 MCH 31.0 MCHC 33.7 RDW 12.3 Plt Count 236 MPV 9.0 L Immature Gran % (Auto) 0.4 Neut % (Auto) 65.3 Lymph % (Auto) 25.2 [place] % (Auto) 6.1 Eos % (Auto) 2.1 Baso % (Auto) 0.9 Lymph # (Auto) 1.4 [place] # (Auto) 0.3 Eos # (Auto) 0.1 Baso # (Auto) 0.1 Abs Immat Gran (auto) 0.02 Absolute Neuts (auto) 3.7 Absolute Nucleated RBC 0.000 Nucleated RBC % (auto) 0.0 Anion Gap 10 L Estim Creat Clear Calc 86.1 Estimated GFR > 60 Random Glucose 104 Calcium 9.4 Microbiology Microbiology Results: Microbiology 01/30/25 04:30 Blood Culture - Preliminary Blood - Venous No growth after 48 hours. 01/30/25 04:30 Blood Culture - Preliminary Blood - Venous No growth after 48 hours. Procedures Date of Service Date of Service: 02/01/25 Progress Note: A&P Assessment and plan (1) Acute appendicitis: Status: Acute Plan 64 year old female admitted for acute appendicitis. Originally the patient wanted to trial IV antibiotics rather than surgical intervention, but later decided she would like to pursue surgery due to upcoming travel plans later this year. Patient is doing well today, comfortable at rest. Denies n/v. Ambulating as tolerated Mild pain to palpation of the RLQ. Abdominal exam is otherwise benign. Patients leukocytosis improving on IV zosyn. She has been NPO since midnight. Patient added onto OR schedule for laparoscopic appendectomy, possible open this afternoon. Patient agreeable to this plan. Continue IV zosyn Contiune IVF Continue NPO Continue pain regimen as needed Time Spent With Patient Time: Total time managing care of this patient today ____ minutes. Quality Stroke Does the patient have a stroke diagnosis?: No VTE Prior VTE?: No VTE Risk Level:: Surgical - low VTE Device Contraindication: N/A - Device Ordered VTE Drug Contraindication: Treatment Not Indicated
--- NOTE | 2025-02-01 08:36 | PM.PNGS ---
Subjective Subjective Date of Service: 02/01/25 Interval history: Patient feels much improved with minimal abdominal pain. Denies any nausea or vomiting. Physical Exam Vital Signs: Vital Signs: Last Vital Signs Temp 98.1 F 02/01/25 07:11 Pulse 83 02/01/25 07:11 Resp 18 02/01/25 07:11 BP 145/68 H 02/01/25 07:11 Pulse Ox 95 02/01/25 07:11 O2 Del Method Room Air 02/01/25 07:11 BMI result Body Mass Index 27.4 Const: General: comfortable Nutritional Appearance: well nourished Orientation/consciousness: patient oriented x3 Resp: Effort & Inspection: normal respiratory effort GI: Other: Soft, nondistended, nontender, no peritoneal signs Neuro: General: patient oriented x3 Extrem: General: No edema Objective Data Active Medications Calcium Carbonate (Calcium Carbonate 750 Mg Tab.Chew) 750 mg PO Q4H PRN PRN Reason: Heartburn Hydromorphone HCl (Hydromorphone Hcl 0.5 Mg/0.5 Ml Syringe) 0.5 mg IVPUSH Q3H PRN; Protocol PRN Reason: Pain, Severe (Pain Scale 7-10) Acetaminophen (Ofirmev) 1,000 mg in 100 mls @ 400 mls/hr IV Q6H PRN PRN Reason: Pain, Mild (Pain Scale 1-3) Last Infusion: 01/30/25 11:26 Dose: Infused Documented By: WESTON Piperacillin Sod/Tazobactam (Sod 3.375 gm/ Sodium Chloride) 50 mls @ 100 mls/hr IV Q6H [facility] Last Infusion: 02/01/25 05:35 Dose: Infused Documented By: LACEY Magnesium Hydroxide (Milk Of Magnesia 30 Ml Oral.Susp) 30 ml PO DAILY PRN PRN Reason: Constipation Melatonin (Melatonin 3 Mg Tablet) 6 mg PO BEDTIME PRN PRN Reason: Insomnia Ondansetron HCl (Ondansetron Hcl 4 Mg/2 Ml Vial) 4 mg IVPUSH QID PRN PRN Reason: Nausea Oxycodone HCl (Oxycodone Hcl Immed Release 5 Mg Tablet) 5 mg PO Q6H PRN PRN Reason: Pain, Moderate(Pain Scale 4-6) Sodium Chloride (0.9 % Sodium Chloride Flush 3 Ml Syringe) 3 ml IVFLUSH QSHIFT [facility] Last Admin: 02/01/25 08:17 Dose: 3 ml Documented By: ROSALIND Labs 01/31/25 08:16 01/31/25 08:16 Labs: Laboratory Results - last 24 hr 01/31/25 08:16 MCV 92.1 MCH 31.0 MCHC 33.7 RDW 12.3 Plt Count 236 MPV 9.0 L Immature Gran % (Auto) 0.4 Neut % (Auto) 65.3 Lymph % (Auto) 25.2 [place] % (Auto) 6.1 Eos % (Auto) 2.1 Baso % (Auto) 0.9 Lymph # (Auto) 1.4 [place] # (Auto) 0.3 Eos # (Auto) 0.1 Baso # (Auto) 0.1 Abs Immat Gran (auto) 0.02 Absolute Neuts (auto) 3.7 Absolute Nucleated RBC 0.000 Nucleated RBC % (auto) 0.0 Anion Gap 10 L Estim Creat Clear Calc 86.1 Estimated GFR > 60 Random Glucose 104 Calcium 9.4 Microbiology Microbiology Results: Microbiology 01/30/25 04:30 Blood Culture - Preliminary Blood - Venous No growth after 48 hours. 01/30/25 04:30 Blood Culture - Preliminary Blood - Venous No growth after 48 hours. Procedures Date of Service Date of Service: 02/01/25 Progress Note: A&P Assessment and plan (1) Acute appendicitis: Status: Acute Plan 64-year-old female patient presenting with complaints of abdominal pain in the right lower quadrant found on workup to have acute appendicitis without perforation or abscess. She is much improved and her with WBC has returned to normal. She has requested laparoscopic appendectomy to prevent recurrence the acute appendicitis. I recommended a laparoscopic or possible open appendectomy and after review of the procedure, risks, and alternatives, she consents to the surgery. She has been added onto the operative schedule for today. Time Spent With Patient Time: Total time managing care of this patient today ____ minutes. Quality Stroke Does the patient have a stroke diagnosis?: No VTE Prior VTE?: No VTE Risk Level:: Surgical - low VTE Device Contraindication: N/A - Device Ordered VTE Drug Contraindication: Treatment Not Indicated
--- NOTE | 2025-02-01 13:38 | P.CONAN_ITS ---
HPI - Anesthesia Eval Consult details Narrative: lap appy [facility] Active Problems Active Problems: All Active Problems Acute appendicitis (Acute) Atrial arrhythmia (Acute) Blindness of left eye (Acute) Postmenopausal (Acute) Hx of mammogram (Acute) Heart palpitations (Acute) Eczema (Acute) URI (upper respiratory infection) (Acute) Shoulder pain, left (Acute) Annual physical exam (Acute) Past Medical History Medical History Shoulder pain, left Annual physical exam COVID-19 Detached retina, left Family History Family History Father HTN (hypertension) Cancer Substance use disorder Paternal Grandfather Heart attack Mother Infectious thyroiditis Alzheimer disease Maternal Grandmother Diabetes Brother Substance use disorder Family history of problems with anesthesia: No Surgical History Surgical History Hx of detached retina repair Hx of vein stripping H/O esophagogastroduodenoscopy H/O colonoscopy History of Problems with Anesthesia: No Social History Social History Household Members: Children [facility] Do you presently have visiting nurse or other home services: No Alcohol intake: current Alcohol intake frequency: holidays/special occasions only Alcohol type: beer Patient Tobacco Use Status: Former Tobacco user e-Cigarette/Vaping Use: Never Used Second Hand Smoke Exposure: No Substance Use Type: Marijuana service: No Current occupational status: employed Cognitive needs: No Hearing needs: No Vision needs: Yes Meds Allergies Allergy/AdvReac Type Severity Reaction Status Date / Time sulfamethoxazole Allergy Intermediate HIVES Verified 01/30/25 01:15 [From BACTRIM] trimethoprim [From BACTRIM] Allergy Intermediate HIVES Verified 01/30/25 01:15 Sulfa (Sulfonamide Allergy Unknown rash Verified 01/30/25 01:15 Antibiotics) microbid Allergy Mild Headache Uncoded 12/26/23 12:59 Active Medications: Current Medications Calcium Carbonate (Calcium Carbonate 750 Mg Tab.Chew) 750 mg PO Q4H PRN PRN Reason: Heartburn Hydromorphone HCl (Hydromorphone Hcl 0.5 Mg/0.5 Ml Syringe) 0.5 mg IVPUSH Q3H PRN; Protocol PRN Reason: Pain, Severe (Pain Scale 7-10) Acetaminophen (Ofirmev) 1,000 mg in 100 mls @ 400 mls/hr IV Q6H PRN PRN Reason: Pain, Mild (Pain Scale 1-3) Last Infusion: 01/30/25 11:26 Dose: Infused Piperacillin Sod/Tazobactam (Sod 3.375 gm/ Sodium Chloride) 50 mls @ 100 mls/hr IV Q6H [facility] Last Infusion: 02/01/25 11:37 Dose: Infused Magnesium Hydroxide (Milk Of Magnesia 30 Ml Oral.Susp) 30 ml PO DAILY PRN PRN Reason: Constipation Melatonin (Melatonin 3 Mg Tablet) 6 mg PO BEDTIME PRN PRN Reason: Insomnia Ondansetron HCl (Ondansetron Hcl 4 Mg/2 Ml Vial) 4 mg IVPUSH QID PRN PRN Reason: Nausea Oxycodone HCl (Oxycodone Hcl Immed Release 5 Mg Tablet) 5 mg PO Q6H PRN PRN Reason: Pain, Moderate(Pain Scale 4-6) Sodium Chloride (0.9 % Sodium Chloride Flush 3 Ml Syringe) 3 ml IVFLUSH QSHIFT [facility] Last Admin: 02/01/25 08:17 Dose: 3 ml Home Medications ?Medication ?Instructions ?Recorded ?Confirmed ?Last Taken ?Type lactobacillus combination no.9 1 cap PO DAILY 12/12/23 01/30/25 Unknown History [Adult 50 Plus Probiotic] multivitamin 1 tab PO DAILY 12/12/23 01/30/25 Unknown History erythromycin 5 mg/gram (0.5 %) eye 1 appl ophthalmic-Left BEDTIME 01/30/25 01/30/25 Unknown History ointment omega [id number] oil 1,000 mg 1 cap PO DAILY 01/30/25 01/30/25 Unknown History (120 mg-180 mg) capsule (Fish Oil) Exam Height,Weight and Vital Signs: Height 5 ft 8 in Weight 81.7 kg Last Vital Signs Temp 98.4 F 02/01/25 13:30 Pulse 81 02/01/25 13:30 Resp 15 02/01/25 13:30 BP 131/78 02/01/25 13:30 Pulse Ox 95 02/01/25 13:30 O2 Del Method Room Air 02/01/25 13:30 Pertinent Lab Results Pertinent Lab Results: Laboratory Tests 01/30/25 01/30/25 01/30/25 01:26 04:15 04:30 WBC 12.4 H RBC 4.50 Hgb 14.0 Hct 40.4 MCV 89.8 MCH 31.1 MCHC 34.7 RDW 12.4 Plt Count 237 MPV 8.9 L Immature Gran % (Auto) 0.3 Neut % (Auto) 71.0 Lymph % (Auto) 19.6 L [place] % (Auto) 6.9 Eos % (Auto) 1.6 Baso % (Auto) 0.6 Lymph # (Auto) 2.4 [place] # (Auto) 0.9 Eos # (Auto) 0.2 Baso # (Auto) 0.1 Abs Immat Gran (auto) 0.04 H Absolute Neuts (auto) 8.8 H Absolute Nucleated RBC 0.000 Nucleated RBC % (auto) 0.0 Sodium 140 Potassium 5.1 Chloride 107 Carbon Dioxide 22 Anion Gap 16 BUN 19 H Creatinine 0.83 Estim Creat Clear Calc 68.1 Estimated GFR > 60 Random Glucose 107 Lactic Acid 2.2 H* Lactic Acid F/U @ 2Hr Calcium 9.4 Magnesium 2.1 Total Bilirubin 0.3 AST 43 H ALT 26 Alkaline Phosphatase 58 Total Protein 7.4 Albumin 4.2 Lipase 26 Urine Color Yellow Urine Appearance Clear Urine pH 5.5 Ur Specific [place] >= 1.030 H Urine Protein Negative Urine Glucose (UA) Negative Urine Ketones Negative Urine Blood Negative Urine Nitrite Negative Ur Leukocyte Esterase Negative 01/30/25 01/31/25 06:45 08:16 WBC 5.6 RBC 4.55 Hgb 14.1 Hct 41.9 MCV 92.1 MCH 31.0 MCHC 33.7 RDW 12.3 Plt Count 236 MPV 9.0 L Immature Gran % (Auto) 0.4 Neut % (Auto) 65.3 Lymph % (Auto) 25.2 [place] % (Auto) 6.1 Eos % (Auto) 2.1 Baso % (Auto) 0.9 Lymph # (Auto) 1.4 [place] # (Auto) 0.3 Eos # (Auto) 0.1 Baso # (Auto) 0.1 Abs Immat Gran (auto) 0.02 Absolute Neuts (auto) 3.7 Absolute Nucleated RBC 0.000 Nucleated RBC % (auto) 0.0 Sodium 142 Potassium 3.8 D Chloride 109 H Carbon Dioxide 27 Anion Gap 10 L BUN 7 L Creatinine 0.73 Estim Creat Clear Calc 86.1 Estimated GFR > 60 Random Glucose 104 Lactic Acid Lactic Acid F/U @ 2Hr 1.2 Calcium 9.4 Magnesium Total Bilirubin AST ALT Alkaline Phosphatase Total Protein Albumin Lipase Urine Color Urine Appearance Urine pH Ur Specific [place] Urine Protein Urine Glucose (UA) Urine Ketones Urine Blood Urine Nitrite Ur Leukocyte Esterase Airway Mallampati Class: II TM Dist: >3cm Neck ROM: Full Heart: rrr Lungs: cta Assessment and Plan Assessment Anesthesia Assessment: Anesthesia Plan Discussed and Chart Reviewed Final Anesthetic Review Family History of Problems with Anesthesia: No History of Problems with Anesthesia: No NPO: Yes ASA Class: II Final Preanesthetic Review: No Changes in Pt Med Stat, Meds/Allgs Chart Reviewed, Consent Obtained/Reviewed and Anes Risks/Benef Reviewed Patient Risk: Intermediate Procedure Risk: Low Anesthetic Plan Anesthetic Plan: GA Disposition: Standard PACU
--- NOTE | 2025-02-01 14:41 | P.OP_ITS ---
Operative Note Operative Note Date of Service: 02/01/25 Narrative: Preoperative diagnosis: Acute appendicitis Postoperative diagnosis: Same Procedure: Laparoscopic appendectomy Surgeon: Johnathon Gonzalez MD Survey Questionnaire Designer:Marly Barreto PA-C; Diomedes Pride PA-C Anesthesia: General endotracheal Indications for procedure: 64-year-old female patient presenting with abdominal pain in the right lower quadrant found to have CT evidence of inflammation of the appendix and an elevated WBC consistent with acute appendicitis Operative findings: Minimally inflamed appendix without perforation or abscess. Specimen: Appendix Estimated blood loss: Less than 2 mL Complications: None Procedure details: Patient was brought to the OR and placed in a supine position. After administering general anesthesia the patient's abdomen was prepped with ChloraPrep and draped in a sterile fashion. A surgical time-out was called and consent confirmed. Patient received preoperative antibiotics and Venodyne boots were in place. Local anesthesia consisting of 0.75% Sensorcaine with epinephrine was infiltrated in periumbilical region. A 5 mm incision was made below the umbilicus and carried down through subcutaneous tissue. A Veress needle was then inserted while elevating abdominal cavity with towel clips. After a positive drop test the abdomen was insufflated to a pressure of 15 mm of mercury. The Veress needle was removed and a 5 mm trocar inserted. The camera was then inserted in the abdomen explored. A 2nd 5 mm trocars placed in the lower midline. A 12 mm trocar was then placed in the left lower quadrant. The patient was then placed in a Trendelenburg position and rotated to the left. The appendix was identified in the right lower quadrant and brought up using blunt dissecting clamps. The mesentery of the appendix was then divided using the LigaSure. The appendiceal artery was cauterized and divided using the LigaSure. Dissection was continued down to the base of the cecum. An Endo-LUCI stapler with a purple reload was then used to divide the appendix at the base with the cecum. The appendix was then placed in Endo-Catch bag and brought out through the left lower quadrant incision. The abdomen was then irrigated with saline solution and suctioned dry. Wounds were checked for hemostasis. CO2 was then evacuated from the abdominal cavity and all trocars removed. Fascia was closed in the left lower quadrant incision using a [id number] Polysorb suture. Skin was closed at all incisions using a subcuticular 4-0 Polysorb suture. Steri-Strips 2 x 2 gauze and Tegaderm were then applied. The patient tolerated the procedure well. Sponge, instrument, needle counts reported as correct. The patient was transferred to PACU in stable condition.
[2025-02-01] MEDS: Dextrose 5 % and Lactated Ring 1,000 ML 125 ML IVCONT ×2 (15:45→23:49)
[2025-02-01] MEDS: Acetaminophen 1,000 MG/100 ML PIGGYBACK 400 MG IV (21:36)
[2025-02-02 03:07] VITALS: BP 101/52; PULSE 72; RESP 18; TEMP 36.9; O2SAT 93
--- NOTE | 2025-02-02 06:37 | PM.PNGS ---
Subjective Subjective Date of Service: 02/02/25 <[facility] - Last Filed: 02/02/25 07:03> 02/02/25 <Johnathon Gonzalez MD - Last Filed: 02/02/25 07:49> Interval history: Patient lying comfortably in bed, endorsing minimal to no pain at this time. Reports tolerating liquids and solids well, without N/V. Ambulating independently to bathroom and using incentive spirometry. Reports passing flatus, however no BM yet. Reports mild headache and a brief sharp LLQ pain that occurred once or twice. Denies fevers, chills, chest pain, difficulty breathing, N/V, bloating, numbness/tingling, urinary symptoms. <[facility] Last Filed: 02/02/25 07:03> Physical Exam Vital Signs: Vital Signs: Last Vital Signs Temp 98.4 F 02/02/25 03:07 Pulse 72 02/02/25 03:07 Resp 18 02/02/25 03:07 BP 101/52 L 02/02/25 03:07 Pulse Ox 93 02/02/25 03:07 O2 Del Method Room Air 02/02/25 03:07 O2 Flow Rate 4 02/01/25 15:01 BMI result Body Mass Index 27.4 <[facility] Last Filed: 02/02/25 07:03> Const: General: no acute distress, alert and awake <[facility] Last Filed: 02/02/25 07:03> Orientation/consciousness: patient oriented x3 <[facility] Last Filed: 02/02/25 07:03> Resp: Effort & Inspection: normal respiratory effort and able to speak in complete sentences <[facility] Last Filed: 02/02/25 07:03> GI: Other: Incision sites clean and dry. Mild tenderness to palpation over incision sites. <[facility] Last Filed: 02/02/25 07:03> Inspection: No distended <[facility] Filed: 02/02/25 07:03> Palpation (GI): no guarding and not rigid <[facility] Last Filed: 02/02/25 07:03> Neuro: General: patient oriented x3 and moves all extremities <[facility] Last Filed: 02/02/25 07:03> Psych: Appearance: grossly normal <[facility] - Last Filed: 02/02/25 07:03> Mental Status: mental status grossly normal <[facility] - Last Filed: 02/02/25 07:03> Objective Data Active Medications Calcium Carbonate (Calcium Carbonate 750 Mg Tab.Chew) 750 mg PO Q4H PRN PRN Reason: Heartburn Hydromorphone HCl (Hydromorphone Hcl 0.5 Mg/0.5 Ml Syringe) 0.5 mg IVPUSH Q3H PRN; Protocol PRN Reason: Pain, Severe (Pain Scale 7-10) Acetaminophen (Ofirmev) 1,000 mg in 100 mls @ 400 mls/hr IV Q6H PRN PRN Reason: Pain, Mild (Pain Scale 1-3) Last Infusion: 02/01/25 21:51 Dose: Infused Documented By: LACEY Dextrose/Lactated Ringer's (D5lr) 1,000 mls @ 125 mls/hr IVCONT .Q8H [facility] Last Admin: 02/01/25 23:49 Dose: 125 mls/hr Documented By: LACEY Magnesium Hydroxide (Milk Of Magnesia 30 Ml Oral.Susp) 30 ml PO DAILY PRN PRN Reason: Constipation Melatonin (Melatonin 3 Mg Tablet) 6 mg PO BEDTIME PRN PRN Reason: Insomnia Ondansetron HCl (Ondansetron Hcl 4 Mg/2 Ml Vial) 4 mg IVPUSH QID PRN PRN Reason: Nausea Oxycodone HCl (Oxycodone Hcl Immed Release 5 Mg Tablet) 5 mg PO Q6H PRN PRN Reason: Pain, Moderate(Pain Scale 4-6) Sodium Chloride (0.9 % Sodium Chloride Flush 3 Ml Syringe) [facility] Last Admin: 02/01/25 22:48 Dose: Not Given Documented By: LACEY Non-Admin Reason: IV Running <[facility] [place] - Last Filed: 02/02/25 07:03> Labs CBC & Chem 7: 01/31/25 08:16 01/31/25 08:16 <[facility] - Last Filed: 02/02/25 07:03> Microbiology Microbiology Results: Microbiology 01/30/25 04:30 Blood Culture - Preliminary Blood - Venous No growth after 48 hours. 01/30/25 04:30 Blood Culture - Preliminary Blood - Venous No growth after 48 hours. <[facility] - Last Filed: 02/02/25 07:03> Procedures Date of Service Date of Service: 02/02/25 <[facility] - Last Filed: 02/02/25 07:03> 02/02/25 <Johntahon Gonzalez MD - Last Filed: 02/02/25 07:49> Progress Note: A&P Assessment and plan (1) Acute appendicitis: Status: Acute <[facility] - Last Filed: 02/02/25 07:03> (2) S/P laparoscopic appendectomy: Status: Acute <[facility] [place] - Last Filed: 02/02/25 07:03> Assessment and Plan: 64 year old female POD1 from an uncomplicated laproscopic appendectomy. Patient reporting abd minimal pain, 1/10, taking Tylenol as needed. Reports mild headache. Vital signs stable. Patient is tolerating liquids and solids without N/V, achieved adequate pain control on PO Tylenol, is ambulating independently, and starting to have return of bowel function with passing flatus. No BM yet. No signs of postoperative complications such as fever, worsening abd pain, obvious signs of incision site infection. Dressings are clean and dry. Given patient meeting this criteria, can likely discharge home today. Plan: -likely discharge home today -continue to encourage ambulation and incentive spirometry -continue diet as tolerated -pain control PRN -monitor for continued return of bowel function (flatus/BM) -monitor for postop complications <[facility] - Last Filed: 02/02/25 07:03> 64 year old female POD1 from an uncomplicated laproscopic appendectomy. Patient reporting abd minimal pain, 1/10, taking Tylenol as needed. Reports mild headache. Vital signs stable. Patient is tolerating liquids and solids without N/V, achieved adequate pain control on PO Tylenol, is ambulating independently, and starting to have return of bowel function with passing flatus. No BM yet. No signs of postoperative complications such as fever, worsening abd pain, obvious signs of incision site infection. Dressings are clean and dry. Given patient meeting this criteria, can likely discharge home today. Plan: -likely discharge home today -continue to encourage ambulation and incentive spirometry -continue diet as tolerated -pain control PRN -monitor for continued return of bowel function (flatus/BM) -monitor for postop complications Patient seen and examined independently and I agree with the above assessment and plan. Pod 1 following laparoscopic appendectomy for acute appendicitis. The patient tolerated the procedure well and remains hemodynamically stable. She was ready for discharge to home. Instructed to avoid lifting greater than 10 lb for the next 2 weeks. She may resume a regular diet. I recommended following up in the office in approximately 1-2 weeks. She should call sooner for any new concerns. Patient expressed understanding and agrees with the plan. <Johnathon Gonzalez MD - Last Filed: 02/02/25 07:49> Time Spent With Patient Time: Total time managing care of this patient today ____ minutes. <[facility] - Last Filed: 02/02/25 07:03> Quality Stroke Does the patient have a stroke diagnosis?: No <[facility] - Last Filed: 02/02/25 07:03> VTE Prior VTE?: No <[facility] - Last Filed: 02/02/25 07:03> VTE Risk Level:: Surgical - low <[facility] - Last Filed: 02/02/25 07:03> VTE Device Contraindication: N/A - Device Ordered <[facility] - Last Filed: 02/02/25 07:03> VTE Drug Contraindication: Treatment Not Indicated <[facility] - Last Filed: 02/02/25 07:03>
[2025-02-02 07:16] VITALS: BP 117/59; PULSE 74; RESP 16; TEMP 36.7; O2SAT 95
[2025-02-02] MEDS: 0.9 % Sodium Chloride Flush 3 ML SYRINGE IVFLUSH (07:57)
--- NOTE | 2025-02-02 09:19 | MHC.CM.PN ---
pt dcd home self care
[2025-02-02] MEDS: Acetaminophen 325 MG TABLET 650 MG PO (10:00)
[2025-02-02 10:04] VITALS: BP 135/70; PULSE 92; RESP 16; TEMP 36.3; O2SAT 96
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
--- NOTE | 2025-02-02 10:53 | HO.POSTANES ---
Post Anesthesia Evaluation Post Anesthesia Evaluation Date of Service: 02/02/25 Vital Signs: Vital Signs Temp Pulse Resp BP Pulse Ox O2 Del Method 02/02/25 10:04 97.3 F 92 16 135/70 96 Room Air 02/02/25 07:16 98.0 F 74 16 117/59 L 95 Room Air 02/02/25 03:07 98.4 F 72 18 101/52 L 93 Room Air Anesthesia: General Endotracheal-GETA Mental Status: Awake Pain Control: Satisfactory Nausea/Vomiting: None Hydration: Adequate Anesthesia-Related Issues: No Anes. Related Issues
== END 2025-02-02 10:26 | disposition home or self-care (01) | DRG 234 ==
LOC: HO.ED 05:58 → HO.EDOVER 06:43 → HO.S3 08:01
PROVIDERS: Internal Medicine; Physician Assistant Medical; Admitting Provider Surgery; Emergency Provider Emergency Medicine; PCP Internal Medicine; Visit Provider Surgery
PROC: 0DTJ4ZZ Resection of Appendix, Percutaneous Endoscopic Approach (ICD-10-PCS; CPT 44970; principal; 2025-02-01 14:00)
DX: K35.80 Unspecified acute appendicitis (principal); Z79.899 Other long term (current) drug therapy
CPT/HCPCS: 44970; 36415; 74177; 80048; 80053; 81003; 83605; 83690; 83735; 85025; 87040; 88304; 99285; J0131; J1100; J1885; J2003; J2270; J2371; J2405; J2543; J2704; J3010; Q9967

== ENCOUNTER → 2025-01-30 01:30 | Outpatient (BNV) | payer OTHER, SELFPAY | PROVIDERS: Emergency Provider Internal Medicine; PCP Internal Medicine; Visit Provider Radiology Diagnostic Radiology | DX: R10.31 Right lower quadrant pain (principal) | CPT/HCPCS: 74177 ==

== ENCOUNTER → 2025-01-30 06:40 | Outpatient (BNV) | payer OTHER, SELFPAY | PROVIDERS: Admitting Provider Surgery; Emergency Provider Internal Medicine; PCP Internal Medicine; Visit Provider Surgery | DX: K35.30 Acute appendicitis with localized peritonitis, without perforation or gangrene (principal); Z90.49 Acquired absence of other specified parts of digestive tract | CPT/HCPCS: 44970; 99024; 99222; 99232; 99499 ==

== ENCOUNTER 2025-02-08 11:01 | Outpatient (AMB) | payer OTHER, SELFPAY ==
--- NOTE | 2025-02-08 11:04 | A.OFFVIS_ITS ---
Vital Signs 02/08/25 11:10 Height 5 ft 8 in Weight 169 lb 4 oz BMI 25.7 BP 125/70 Blood Pressure Location Lt brachial Position Sitting Pulse 95 Intake Visit Reasons: s/p appendectomy Intake Note: Patient is seen in office for post op assessment post Laparoscopic appendectomy. Pt c/o: denies any concerns, healing as expected surgery:02/01/25 Progress Clerk Required: No Accompanied by: Self / Same As Patient Allergies sulfamethoxazole [From BACTRIM] Allergy (Intermediate, Verified 02/08/25 11:10) HIVES trimethoprim [From BACTRIM] Allergy (Intermediate, Verified 02/08/25 11:10) HIVES Sulfa (Sulfonamide Antibiotics) Allergy (Unknown, Verified 02/08/25 11:10) rash microbid Allergy (Mild, Uncoded 02/08/25 11:10) Headache HPI HPI s/p appendectomy: Details: Patient states she is doing well, recovering from a cold. She has some mild incisional pain on the left port site. She states that some of her pain comes from coughing which aggravates her abdomen however she rates his pain at 2/10. Denies nausea, vomiting, fever, chills. 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 She has no concerns about her incision sites. She has been tolerating diet well, denies nausea after eating. She is passing bowel movements. She has questions about resuming her sex life, and what restrictions she will have. [facility] Medical History Shoulder pain, left Annual physical exam COVID-19 Detached retina, left Surgical History S/P laparoscopic appendectomy (02/01/25) Hx of detached retina repair Hx of vein stripping H/O esophagogastroduodenoscopy H/O colonoscopy Family History Father HTN (hypertension) Cancer Substance use disorder Paternal Grandfather Heart attack Mother Infectious thyroiditis Alzheimer disease Maternal Grandmother Diabetes Brother Substance use disorder Social History Household Members: Children Housing: Condominium Do you presently have visiting nurse or other home services: No Alcohol intake: current Alcohol intake frequency: holidays/special occasions only Alcohol type: beer Patient Tobacco Use Status: Former Tobacco user e-Cigarette/Vaping Use: Never Used Second Hand Smoke Exposure: No Substance Use Type: Marijuana service: No Current occupational status: employed Cognitive needs: No Hearing needs: No Vision needs: Yes Review of Systems Const Denies chills and Denies fever(s) GI Reports abdominal pain (Left side at incision site) and Denies nausea Physical Exam Vital Signs: Last Vital Signs Pulse 95 02/08/25 11:10 BP 125/70 02/08/25 11:10 BMI result Body Mass Index 25.7 Const General: comfortable and no acute distress Orientation/consciousness: patient oriented x3 Resp Effort & Inspection: normal respiratory effort and able to speak in complete sentences GI Other: Incision sites look clean dry and intact, no surrounding erythema, no evidence of fluid collection, no warmth, no discharge noted. Remaining Steri-Strips removed Inspection: No Abdominal wall edema and No distended Palpation (GI): Soft to palpation, not firm, Tenderness to palpation present (GI) (Mild to deep palpation in RLQ and left lower quadrant at port site), no guarding and not rigid Neuro General: patient oriented x3 Assessment & Plan Assessment & Plan (1) S/P laparoscopic appendectomy: Onset Date: 02/01/25 Comment: Johnathon Aguilar MD Code(s): Z90.49 - Acquired absence of other specified parts of digestive tract Category: Surgical Plan 64-year-old female status post laparoscopic appendectomy on 10/28/2011 25 presents to the office for routine one-week follow-up. Surgical specimen pathology results were reviewed and are as follows: Acute appendicitis and periappendicitis Patient doing well improving towards baseline. Experiencing some mild incisional site tenderness. Abdominal exam otherwise benign. Incision sites clear dry and intact, no concern for infection. Remaining Steri- Strips removed in the office. She is tolerating normal diet, regular bowel habits. 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 She has questions about returning to activity and sexual intercourse. We discussed the restrictions, she will remain on a 15-20 lb limit until 1 month postop and I advised to refrain from sexual i ntercourse until that visit. Patient will follow-up in 3 weeks for 1 month postop visit. She can return sooner or call the office with any questions or concerns prior to that date Coding Level of Care Code Global (38224) Diagnoses S/P laparoscopic appendectomy Z90.49 Time Spent (min) 32
[2025-02-08 11:10] VITALS: BP 125/70; PULSE 95; BMI 25.7
--- OUTSIDE RECORDS SUMMARY | 2025-02-08 11:48 | XMS_ITS | Continuity of Care Document ---
Author Organization [facility] Address [address] [place] [address] Dr Guerrero [address] [place] [address] Phone Care Team Providers Care Return Agent Airport Name Role Phone Cruz ELLER, JACQUI, Josue [...] Providers Copied on Encounter [facility], [address] [place] [address] Dr Guerrero [address], [place], [id number], [place] tel:[phone] CVR - - [place] No Information 4 Cruz ELLER, JACQUI, DAVID Salas. [address] [place] [address] 302, Portershikha sanchez [place], [id number], [place]. 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 [address] [place] [address], [facility] 302, Hussain sanchez [place], [id number], [place]. tel:[phone] Referring Provider: Stoney Perez MD S, [address] [place] [address] [address], [place], [address]. tel:[phone] [facility], [address] [place] [address] Dr Guerrero 1000Suite [place] Wiley MD, [id number], [place] tel:[phone] CVR [place] Varicose veins of left lower extremity with pain 4 Cruz ELLER RVT, RPVI Robert. [address] [place] [address], [facility] [place], [id number], [place]. tel:[phone] Referring Provider: Kristine Nielson MD S, [address] [place] [address], [place], [address]. tel:[phone] [facility], [address] [place] [address] Dr Guerrero 1000Suite [place]eba Wiley MD, [id number], [place] tel:[phone] CVR - [place] - [place] Encounter for follow-up examination after completed treatment for conditions other than malignant neVaricose veins of left lower extremity with pain 4 Cruz ELLER RVT, RPVI Robert. [address] [place] [address], Hussain sanchez [place], [id number], [place]. tel:[phone] Referring Provider: Kristine Nielson MD S, [address] [place] [address], [place], [address]. tel:[phone] [facility], [address] [place] [address] Dr Guerrero 1000Suite [place] Wiley MD, [id number], [place] tel:[phone] CVR [place] Varicose veins of left lower extremity with other complications Brandon-0 4 Jarrod Pierre. [address] [place] [address] [address], [facility] [place], [id number], [place]. tel:[phone] Referring Provider: Kristine Nielson MD S, [address] [place] [address], [place], [address]. tel:[phone] [facility], [address] [place] [address] [address]Sheeba MD, [id number], [place] tel:[phone] CVR [place] Encounter for follow-up examination after completed treatment for conditions other than malignant neVaricose veins of left lower extremity with pain Brandon-0 4 Cruz ELLER, JACQUI, DAVID Salas. [address] [place] [address], [facility] laura [place], [id number], [place]. tel:[phone] Referring Provider: Kristine Nielson MD S, [address] [place] [address], [place], [address]. tel:[phone] [facility], [address] [place] [address] Dr Guerrero [address] [address]She[place], [id number], [place] tel:[phone] CVR - [place] Varicose veins of left lower extremity with other complications 4 Cruz ELLER, JACQUI, DAVID Salas. [address] [place] [address] 302, [facility] laura [place], [id number], [place]. tel:[phone] Referring Provider: Kristine Nielson MD S, [address] [place] [address], [place], [address]. tel:[phone] Offic/outpt E&m Estab 5 Min Trial- Telemedicine CT & [place] [facility], [address] [place] [address] Dr Guerrero 1000[address] 1000She[place] MD, [id number], [place] tel:[phone] CVR - [place] Localized edemaCramp and spasmRestless legs syndromeVenou s insufficiency (chronic) (peripheral) 4 Jarrod Pierre. [address] [facility], [address], [facility] [place], [id number], [place]. tel:[phone] Referring Provider: Kristine Nielson MD S, [address] [facility], [place], [address]. tel:[phone] Offic Cons New/estab Mod 40 Mi [facility], [address] [place] [address] [facility] 1000[address] 1000She[place], [id number], [place] tel:[phone] CVR - [place] Varicose veins of left lower extremity with other complications Pain in left lower legPain in left legLocalized edemaRestless legs syndromeCramp and spasm 4 Cruz ELLER, JACQUI, DAVID Salas. [address] [place] [address], Hussain sanchez MD, [id number], [place]. tel:[phone] [facility], [address] [place] [address] [facility] [address], [place], [id number], [place] tel:[phone] CVR - [place] Varicose veins of left lower extremity with pain 4 Cruz ELLER, JACQUI, DAVID Salas. [address] [place] [address], Portershikha sanchez [place], [id number], [place]. tel:[phone] Family History Family Member Type Diagnosis Age At Onset No Information Payers Payer name Insurance type Covered republican ID Josee wiley(s) [facility] [id number] Social History Type Description Quantity Date Captured [...]
--- OUTSIDE RECORDS SUMMARY | 2025-02-08 11:48 | XMS_ITS | Clinical Summary ---
Author Organization [facility] Address [address] [place] [address] Care Team Providers Care Tutor Name Role Phone Unavailable Primary Care Provider [...]
== END 2025-02-08 11:24 | disposition home or self-care (01) ==
LOC: HO.HGS 11:02
PROVIDERS: PCP Internal Medicine
DX: Z90.49 Acquired absence of other specified parts of digestive tract (principal)
CPT/HCPCS: 99024

== ENCOUNTER → 2025-02-08 11:01 | Outpatient (BNVA) | payer OTHER, SELFPAY | PROVIDERS: PCP Internal Medicine | DX: Z90.49 Acquired absence of other specified parts of digestive tract (principal) | CPT/HCPCS: 96127 ==

== ENCOUNTER 2025-02-08 11:48 | Outpatient (AMB) | payer OTHER, SELFPAY ==
--- NOTE | 2025-02-08 12:29 | MHC.PC.OV ---
Vital Signs 02/08/25 12:38 Height 5 ft 8 in Weight 169 lb BMI 25.7 BP 120/70 Blood Pressure Location Lt brachial Position Sitting Respiration 18 Pulse 73 Pulse Source Pulse Oximeter Pulse Oximetry (%) 96 Oxygen Delivery Method Room Air Intake Visit Reasons: TCM Edge Banding Off Bearer Required: No Accompanied by: Self / Same As Patient Allergies sulfamethoxazole [From BACTRIM] Allergy (Intermediate, Verified 02/08/25 12:42) HIVES trimethoprim [From BACTRIM] Allergy (Intermediate, Verified 02/08/25 12:42) HIVES Sulfa (Sulfonamide Antibiotics) Allergy (Unknown, Verified 02/08/25 12:42) rash microbid Allergy (Mild, Uncoded 02/08/25 12:42) Headache Tobacco use date assessed: 02/08/25 Fall risk assessment: No Falls in past year Last assessed Fall Risk: 02/08/25 Dental Screening Dental Screen Date: 02/08/25 Did you have a dental visit in the last 12 months?: Yes Did you have a dental problem in the last 6 months where you did not have access to dental care?: No Was dental information given to patient?: Patient has dentist HPI TCM HPI Details Pt presents for f/u TCM of hospitalization for acute appendicitis on 01/30, discharged on 02/02. Patient underwent laparoscopic appendectomy an recovered well. She is tolerating regular diet denies abdominal pain or change in bowel habits. She followed up with a surgery. TCM TCM Information Date of Discharge 02/02/25 Discharged From [facility] Interactive Contact Date (Reference documentation from this date) 02/03/25 COUNTS INCLUDE 234 BEDS AT [facility] Medical History Shoulder pain, left Annual physical exam COVID-19 Detached retina, left Surgical History S/P laparoscopic appendectomy (02/01/25) Hx of detached retina repair Hx of vein stripping H/O esophagogastroduodenoscopy H/O colonoscopy Family History Father HTN (hypertension) Cancer Substance use disorder Paternal Grandfather Heart attack Mother Infectious thyroiditis Alzheimer disease Maternal Grandmother Diabetes Brother Substance use disorder Social History Household Members: Children Housing: Condominium Do you presently have visiting nurse or other home services: No Alcohol intake: current Alcohol intake frequency: holidays/special occasions only Alcohol type: beer Patient Tobacco Use Status: Former Tobacco user e-Cigarette/Vaping Use: Never Used Second Hand Smoke Exposure: No Substance Use Type: Marijuana service: No Current occupational status: employed Cognitive needs: No Hearing needs: No Vision needs: Yes Questionnaire PHQ-9 Over the last 2 weeks, how often have you been bothered by any of the following problems? 1. Little interest or pleasure in doing things: not at all 2. Feeling down, depressed, or hopeless: not at all 3. Trouble falling or staying asleep, or sleeping too much: not at all 4. Feeling tired or having little energy: not at all 5. Poor appetite or overeating: not at all 6. Feeling bad about yourself - or that you are a failure or have let yourself or your family down: not at all 7. Trouble concentrating on things, such as reading the newspaper or watching television: not at all 8. Moving or speaking so slowly that other people could have noticed. Or the opposite - being so fidgety or restless that you have been moving around a lot more than usual: not at all 9. Thoughts that you would be better off or of hurting yourself in some way: not at all Total score: 0 Depression Screening Interpretation: Negative Depression Screening Done: Yes 23124 - PHQ-9 Billing: Yes Source: Developed by Drs. Josue Montgomery, Gerri Jordan, Jemal Mejia and colleagues, with an educational shin from [employer]. Thrive Questionnaire Date Thrive assessed: 02/08/25 I am a: Patient What is your living situation today?: I have a steady place to live Within the past 12 months, did the food you bought not last and you didn't have the money to get more?: Never true Within the past 12 months, did you worry whether your food would run out before you got money to buy more?: Never true Do you have trouble paying for medicines?: No Do you have trouble getting transportation to medical appointments?: No Do you have trouble paying your heating and electricity bill?: No Do you have trouble taking care of your child, family member or friend?: No Do you have trouble with day-to-day activities such as bathing, preparing meals, shopping, managing finances, etc.?: No Are you currently unemployed and looking for a job?: No Are you interested in more education?: No Please select the resources that you would like help with: None Currently or been in a relationship where the following occur: No concerns reported THRIVE Score: 0 AUDIT C Alcohol Use Questionnaire (AUDIT-C) 1. How often do you have a drink containing alcohol?: 2-4 times a month 2. How many drinks containing alcohol do you have on a typical day when you are drinking?: 1 or 2 3. How often do you have six or more drinks on one occasion?: Never Total Score: 2 Score Reviewed/Action Taken: Yes MARQUIS-7 AMB Questionnaire MARQUIS-7 Date MARQUIS - 7 assessed: 02/08/25 Feeling nervous, anxious, or on edge: 0 = Not at all Not being able to stop or control worryin = Not at all Worrying too much about different things: 0 = Not at all Trouble relaxin = Not at all Being so restless that it is hard to sit still: 0 = Not at all Becoming easily annoyed or irritable: 0 = Not at all Feeling afraid as if something awful might happen: 0 = Not at all Total MARQUIS-7 score (0-4 normal; 5-9 mild; 10-14 moderate; 15-21 severe): 0 Source: Developed by Drs. Josue Montgomery, Gerri Jordan, Jemal Mejia and colleagues, with an educational shin from [employer]. MARQUIS-7 Assessment Billing MARQUIS-7 Assessment Tool: MARQUIS-7 Assessment 65572 Review of Systems Const All systems reviewed & are unremarkable except as noted in HPI and below Eyes Reports no additional complaints ENT Reports no additional complaints Card Reports no additional complaints Resp Reports no additional complaints GI Reports no additional complaints Reports no additional complaints Physical exam (Primary Care) Vital Signs: Last Vital Signs Pulse 73 02/08/25 12:38 Resp 18 02/08/25 12:38 BP 120/70 02/08/25 12:38 Pulse Ox 96 02/08/25 12:38 Oxygen Delivery Method Room Air 02/08/25 12:38 BMI result Body Mass Index 25.7 Tobacco/Smoking Status: Tobacco use Status Tobacco use date assessed 02/08/25 02/08/25 12:32 Patient Tobacco Use Status Former Tobacco user 02/08/25 12:32 e-Cigarette/Vaping Use Never Used 02/08/25 12:32 PHQ-9: PHQ-9 Score PHQ-9: Total score 0 02/08/25 13:27 Depression Screening Interpretation: Negative Thrive Assessment: Date of Thrive Assessment Date Thrive assessed 02/08/25 02/08/25 12:32 Currently or been in a relationship where the following occur: No concerns reported Const General: no acute distress HENMT Head: Yes normal to inspection Face and sinus: Yes normal facial exam Neck Neck: Yes supple Resp Effort & Inspection: normal respiratory effort Auscultation: clear to auscultation bilaterally Cardio Rhythm: regular rhythm Heart sounds: S1 normal heart sound present and S2 normal heart sound present GI Inspection: Yes normal to inspection Palpation (GI): Soft to palpation Percussion: Yes normal to percussion Auscultation: normal bowel sounds Coding Level of Care Code TCM Mod MDM <= 7 Days Diagnoses S/P laparoscopic appendectomy Z90.49 Additional Codes MARQUIS-7 Assessment Billing - MARQUIS-7 Assessment Tool: MARQUIS-7 Assessment 06632 ([id number]) PHQ-9 - 98738 - PHQ-9 Billing: Yes ([id number]) Assessment & Plan Assessment & Plan (1) S/P laparoscopic appendectomy: Onset Date: 02/01/25 Comment: Johnathon Aguilar MD Code(s): Z90.49 - Acquired absence of other specified parts of digestive tract Category: Medical Plan: Continue supportive care
--- OUTSIDE RECORDS SUMMARY | 2025-02-08 12:30 | XMS_ITS | Continuity of Care Document ---
Author Organization [facility] Address [address] [place] [address] Dr Guerrero [address] [place] [address] Phone Care Team Providers Care Detective Automobile Section Name Role Phone Curz ELLER, JACQUI, Josue HERNANDEZ Unavailable U navailable [...] Providers Copied on Encounter [facility], [address] [place] [address] Dr Guerrero 1000[address], [place], [id number], [place] tel:[phone] CVR - - [place] No Information 4 Cruz ELLER, JACQUI, DAVID Salas. [address] [place] [address] 302, [place]ikha sanchez [place], [id number], [place]. tel:[phone] Office/Outpt E&M Established 15 Mins- CT & [place] [facility], [address] [place] [address] Dr Guerrero 1000SuSheeba shafer MD, [id number], [place] tel:[phone] CVR - [place] - [place] Varicose veins of bilateral lower extremities with other complications 4 Cruz ELLER RVT, DAVID Salas. [address] [place] [address], [facility] 302, Hussain sanchez [place], [id number], [place]. tel:[phone] Referring Provider: Stoney Perez MD S, [address] [place] [address] [address], [place], [address]. tel:[phone] [facility], [address] [place] [address] Dr Guerrero 1000Suite [place]eba Wiley MD, [id number], [place] tel:[phone] CVR - [place] Varicose veins of left lower extremity with pain 4 Cruz ELLER RVT, RPVI Robert. [address] [place] [address], [facility] [place], [id number], [place]. tel:[phone] Referring Provider: Kristine Nielson MD S, [address] [place] [address], [place], [address]. tel:[phone] [facility], [address] [place] [address] Dr Guerrero 1000Suite [place]eba Wiley MD, [id number], [place] tel:[phone] CVR - [place] - [place] Encounter for follow-up examination after completed treatment for conditions other than malignant neVaricose veins of left lower extremity with pain 4 Cruz ELLER RVT, RPVI Robert. [address] [place] [address], Hussain sanchez [place], [id number], [place]. tel:[phone] Referring Provider: Kristine Nielson MD S, [address] [place] [address], [place], [address]. tel:[phone] [facility], [address] [place] [address] Dr Guerrero [address]Suite Sheeba Wiley MD, [id number], [place] tel:[phone] CVR - [place] Varicose veins of left lower extremity with other complications Brandon-0 4 Jarrod Pierre. [address] [place] [address] [address], [facility] [place], [place], [id number], [place]. tel:[phone] Referring Provider: Kristine Nielson MD S, [address] [place] [address], [place], [address]. tel:[phone] [facility], [address] [place] [address] [address]Sheeba MD, [id number], [place] tel:[phone] CVR - [place] Encounter for follow-up examination after completed treatment for conditions other than malignant neVaricose veins of left lower extremity with pain Brandon-0 4 Cruz ELLER, JACQUI, DAVID Salas. [address] [place] [address], [facility] laura [place], [id number], [place]. tel:[phone] Referring Provider: Kristine Nielson MD S, [address] [place] [address], [place], [address]. tel:[phone] [facility], [address] [place] [address] Dr Guerrero 1000[place] [address]Sheeba [place], [id number], [place] tel:[phone] CVR - [place] - [place] Varicose veins of left lower extremity with other complications 4 Cruz ELLER, JACQUI, DAVID Salas. [address] [place] [address] 302, [facility] laura [place], [id number], [place]. tel:[phone] Referring Provider: Kristine Nielson MD S, [address] [place] [address], [place], [address]. tel:[phone] Offic/outpt E&m Estab 5 Min Trial- Telemedicine CT & [place] [facility], [address] [place] [address] Dr Guerrero 1000[address] 1000Sheeba MD, [id number], [place] tel:[phone] CVR - [place] Localized edemaCramp and spasmRestless legs syndromeVenou s insufficiency (chronic) (peripheral) 4 Jarrod Pierre. [address] [facility], [address], [facility] [place], [id number], [place]. tel:[phone] Referring Provider: Kristine Nielson MD S, [address] [facility], [place], [address]. tel:[phone] Offic Cons New/estab Mod 40 Mi [facility], [address] [place] [address] [facility] 1000[address] 1000Sheeba MD, [id number], [place] tel:[phone] CVR - [place] Varicose veins of left lower extremity with other complications Pain in left lower legPain in left legLocalized edemaRestless legs syndromeCramp and spasm 4 Cruz ELLER, JACQUI, DAVID Salas. [address] [place] [address], Hussain sanchez [place], [id number], [place]. tel:[phone] [facility], [address] [place] [address] [facility] [address], [place], [id number], [place] tel:[phone] CVR - [place] Varicose veins of left lower extremity with pain 4 Cruz ELLER, JACQUI, DAVID Salas. [address] [place] [address], [place]hikha sanchez [place], [id number], [place]. tel:[phone] Family History Family Member Type Diagnosis Age At Onset No Information Payers Payer name Insurance type Covered alliance party ID Josee wiley(s) [facility] [id number] Social History Type Description Quantity Date Captured [...]
--- OUTSIDE RECORDS SUMMARY | 2025-02-08 12:30 | XMS_ITS | Clinical Summary ---
Author Organization [facility] Address [address] [place] [address] Care Team Providers Care Soccer Player Name Role Phone Unavailable Primary Care Provider [...]
[2025-02-08 12:38] VITALS: BP 120/70; PULSE 73; RESP 18; O2SAT 96; BMI 25.7
== END 2025-02-08 14:14 | disposition home or self-care (01) ==
LOC: HO.HMCC 11:49
PROVIDERS: PCP Internal Medicine; Visit Provider Internal Medicine
DX: K35.80 Unspecified acute appendicitis (principal); Z90.49 Acquired absence of other specified parts of digestive tract

== ENCOUNTER 2025-02-18 07:22 | Emergency (ER) | payer OTHER, SELFPAY ==
[2025-02-18 07:30] VITALS: BP 149/86; PULSE 77; RESP 18; TEMP 36.5; O2SAT 96; BMI 26.0
--- OUTSIDE RECORDS SUMMARY | 2025-02-18 07:57 | XMS_ITS | Clinical Summary ---
Author Organization [facility] Address [address] [place] [address] Care Team Providers Care Life Science Teacher Name Role Phone Unavailable Primary Care Provider [...]
--- NOTE | 2025-02-18 08:06 | ED_ITS ---
HPI - General Adult General Chief complaint: Wound/Laceration Stated complaint: r thumb laceration Time Seen by Provider: 02/18/25 08:06 Source: patient Mode of arrival: ambulatory Limitations: no limitations History of Present Illness ED Provider: Mercedes Mcmahan PA-C HPI narrative: Patient is a 64 year old assigned female at with a history of left eye blindness and eczema presenting to the emergency department today with a right thumb laceration. Patient states that she was doing dishes this morning when she cut her right thumb on a knife. Patient denies any dizziness, lightheadedness, abdominal pain, nausea, vomiting, fever, chills, blurry vision, double vision, loss of vision, chest pain, difficulty breathing, shortness of breath, back pain, night sweats, pain with urination, increased urinary frequency, increased urinary urgency, blood in her urine or stool, syncope or a near syncopal episode, bowel incontinence, bladder incontinence, or any other complaints at this time. Onset (ago): hour(s) Location: left (thumb) Relieving factors: none Exacerbating factors: none Associated symptoms: denies other symptoms Treatments prior to arrival: other (bandage) Related Data Home Medications ?Medication ?Instructions ?Recorded ?Confirmed lactobacillus combination no.9 1 cap PO DAILY 12/12/23 02/03/25 [Adult 50 Plus Probiotic] multivitamin 1 tab PO DAILY 12/12/23 02/03/25 erythromycin 5 mg/gram (0.5 %) eye 1 appl ophthalmic-Left BEDTIME 01/30/25 02/03/25 ointment omega 3-sfg-sph-fish oil 1,000 mg 1 cap PO DAILY 01/30/25 02/03/25 (120 mg-180 mg) capsule (Fish Oil) Previous Rx's ?Medication ?Instructions ?Recorded docusate sodium 100 mg capsule 100 mg PO BID #30 caps 02/01/25 (Colace) Allergies Allergy/AdvReac Type Severity Reaction Status Date / Time sulfamethoxazole Allergy Intermediate HIVES Verified 02/18/25 07:31 [From BACTRIM] trimethoprim [From BACTRIM] Allergy Intermediate HIVES Verified 02/18/25 07:31 Sulfa (Sulfonamide Allergy Unknown rash Verified 02/18/25 07:31 Antibiotics) microbid Allergy Mild Headache Uncoded 02/18/25 07:31 Review of Systems 2 Constitutional: Constitutional: Reports no additional constitutional complaints, Denies chills, Denies fever(s) and Denies night sweats Eyes: Eyes: Reports no additional eye complaints, Denies blurry vision, Denies change in vision, Denies diplopia, Denies eye discharge, Denies loss of vision and Denies eye pain ENT: Denies dizziness Cardiovascular: Cardiovascular: Reports no additional cardiovascular complaints, Denies chest pain, Denies lightheadedness, Denies Loss of Consciousness and Denies dyspnea Respiratory: Respiratory: Reports no additional respiratory complaints and Denies dyspnea Gastrointestinal: Gastrointestinal: Reports no additional gastrointestinal complaints, Denies abdominal pain, Denies melena, Denies hematochezia, Denies change in bowel habits and Denies change in stool character Genitourinary: Genitourinary: Denies hematuria, Denies urinary frequency, Denies dysuria, Denies urinary incontinence, Denies urinary hesitancy and Denies urinary urgency Musculoskeletal: Musculoskeletal: Reports no additional musculoskeletal complaints, Denies numbness and Denies tingling Comments: right thumb laceration Neurologic: Denies dizziness, Denies loss of vision, Denies numbness and Denies tingling Psychiatric: Psychiatric: Reports no additional psychiatric complaints Endocrine: Endocrine: Reports no additional endocrine complaints Hematologic/Lymphatic: Hematologic/Lymphatic: Reports no additional hematologic/lymphatic complaints Allergic/Immunologic: Allergic/Immunologic: Reports no additional allergic/immunologic complaints [facility] Past Medical History Attestation statement: The following information was validated with the patient. Source: old records reviewed and nursing notes reviewed Medical History Shoulder pain, left Annual physical exam COVID-19 Detached retina, left Surgical History S/P laparoscopic appendectomy (02/01/25) Hx of detached retina repair Hx of vein stripping H/O esophagogastroduodenoscopy H/O colonoscopy Family History Family History Father HTN (hypertension) Cancer Substance use disorder Paternal Grandfather Heart attack Mother Infectious thyroiditis Alzheimer disease Maternal Grandmother Diabetes Brother Substance use disorder Social History Social History Household Members: Children Housing: Condominium Do you presently have visiting nurse or other home services: No Alcohol intake: current Alcohol intake frequency: holidays/special occasions only Alcohol type: beer Patient Tobacco Use Status: Former Tobacco user e-Cigarette/Vaping Use: Never Used Second Hand Smoke Exposure: No Substance Use Type: Marijuana Advance Directives: No Advance Directives Information Provided: Yes service: No Current occupational status: employed Cognitive needs: No Hearing needs: No Vision needs: Yes Physical Exam ED Vital Signs: Vital Signs - 24 hr 02/18/25 07:30 02/18/25 08:30 Temperature 97.7 F 97.7 F Pulse Rate 77 77 Respiratory Rate 18 18 Blood Pressure 149/86 H 149/86 H Pulse Oximetry 96 96 Oxygen Delivery Method Room Air Room Air BMI result Body Mass Index 26.0 Const General: cooperative, no acute distress, alert and awake Nutritional Appearance: well nourished Orientation/consciousness: patient oriented x3 HENMT Head: Yes normal to inspection and Yes atraumatic Ears: hearing grossly normal bilaterally and external ears normal General nose exam: Normal external nose present, no nasal discharge noted and no epistaxis Face and sinus: Yes normal facial exam, No abrasion and No laceration Mouth: Normal oral and palatal mucosa present, no drooling and no muffled voice Eyes General: appearance normal, both eyes and all related structures Periorbital: periorbital findings normal Eyelids: Yes eyelids normal Conjunctivae: conjunctivae normal Pupils: Equal, round and reactive pupils present EOM: EOMs intact bilaterally Neck Neck: Yes normal visual inspection, Yes full ROM and Yes no lymphadenopathy Resp Effort & Inspection: normal respiratory effort and able to speak in complete sentences Neuro General: patient oriented x3, moves all extremities and CN's II-XI intact bilaterally Cranial nerves: Yes Equal, round and reactive pupils present Cognition (Neuro): normal cognition Extrem General: Yes full ROM and Yes capillary refill normal Hand/finger images: 2 1. 0.25cm laceration - no active bleeding Psych Appearance: grossly normal Mental Status: mental status grossly normal Affect: normal affect Attitude: cooperative Thought process: Normal thought process present Thought content: Normal thought content present Insight: Good insight present (Psych) Medications Administered Discontinued Medications Generic Name Dose Route Start Last Admin Trade Name Freq PRN Reason Stop Dose Admin Diphtheria/Tetanus/Acell Pertussis 0.5 ml 02/18/25 08:08 02/18/25 08:19 Diphth,Pertus(Acell),Tet Adult 0.5 Ml Syringe IM 02/18/25 08:09 0.5 ml .ONCE ONE Administration Procedures Laceration Laceration 1: Site: other (thumb) Side (If applicable): right Size (cm): 0.25 Description: linear Depth: simple, single layer Pre-repair: deep structures intact Skin layer closed with: other (dermabond) Size (cm): other (dermabond) Technique: other (dermabond) Medical Decision Making Medical Decision Making MDM Narrative: Patient is a 64 year old assigned female at with a history of left eye blindness and eczema presenting to the emergency department today with a right thumb laceration. Patient's physical exam was as noted in the physical exam portion of this note. There was a small, superficial, laceration to the right thumb with no active bleeding. I explained my physical exam findings to the patient. I answered all questions asked by the patient. Patient brought up to date on her tetanus status. Patient's right thumb laceration was repaired with dermabond, without incident. Patient's PMS was intact prior to and after laceration repair. Patient's repaired laceration was covered with a non-stick gauze and web roll, without incident. Patient's PMS was intact prior to and after bandage placement. I stressed the importance of the patient taking her medication as directed (either prescribed or as the over the counter packaging recommends). I stressed the importance of the patient following up with her primary care provider. I stressed the importance of the patient returning to the emergency department immediately if her symptoms were to worsen or if she were to develop any dizziness, shortness of breath, difficulty breathing, chest pain, blurry vision, loss of vision, nausea, vomiting, abdominal pain, fever, chills, back pain, or any other complaints. Patient verbalized agreement and understanding with this treatment plan and discharge. Differential Diagnosis Differential Diagnoses: The differential diagnosis associated with the presentation includes Right thumb laceration Laceration Admission/Observation Consideration of admission/observation: Escalation of care including admission/observation considered Patient would have been admitted to the hospital had her clinical presentation warranted hospital admission. Tests considered The following testing was considered but not selected: I considered obtaining an x-ray of the right thumb however, the patient's current clinical presentation and mechanism of injury did not warrant this. Discharge Plan Discharge Clinical Impression: Laceration of thumb Qualifiers: Encounter type: initial encounter Damage to nail status: without damage Foreign body presence: without foreign body Laterality: right Qualified Code(s): S 61.011A - Laceration without foreign body of right thumb without damage to nail, initial encounter Patient Disposition: Home, Self-Care Instructions: Finger Laceration (ED), Skin Adhesive Care (ED) Additional Instructions: Keep the area dry for at LEAST 7 days. The glue will dissolve / fall off on it's own. Follow up with your primary care provider. Return to the emergency department immediately if your symptoms worsen or if you develop any numbness, tingling, dizziness, shortness of breath, difficulty breathing, chest pain, blurry vision, loss of vision, nausea, vomiting, abdominal pain, fever, chills, back pain, or any other complaints. Please see the information below about our Patient Portal. If you are not yet enrolled in the [facility] Patient Portal, you will receive an enrollment email invitation following your visit to any [facility] setting. You may also self-enroll in the Patient Portal by visiting our website: [email or web address] The following information is required to access the Patient Portal: - Your [facility] Medical Record Number - Your personal home email address (must match what is in your electronic medical record, Registration staff can assist with this) - Name - Date of Capabilities of the Patient Portal: - Message some providers - View upcoming appointments - Access your health summary, medical history, and visit history - View current conditions and allergies - View procedure and lab results - View your medications, including guidelines, side effects, and precautions - Complete pre-appointment questionnaires requested by your provider - Ready summary reports of your office visits and procedures To access the Patient Portal Mobile [employer], follow these directions: - Search [place] in the [employer] Store or [employer] Store - Download the Walter - Search for [facility] - Enter your login/password Prescriptions: No Action erythromycin 5 mg/gram (0.5 %) ointment 1 appl ophthalmic-Left BEDTIME omega 9-fos-yhd-fish oil [Fish Oil] 1,000 (120-180) mg Capsule 1 cap PO DAILY docusate sodium [Colace] 100 mg capsule 100 mg PO BID Qty: 30 0RF multivitamin Tablet 1 tab PO DAILY lactobacillus combination no.9 [Adult 50 Plus Probiotic] 1 cap PO DAILY Referrals: Kristine Nielson MD [Primary Care Provider] - Interventions: ED Discharge Assessment Last Done: 02/18/25 08:30 Discharge Date/Time: 02/18/25 08:31 Print Language: Angolan
[2025-02-18] MEDS: Diphth,Pertus(ACell),Tet Adult 0.5 ML SYRINGE IM (08:19)
[2025-02-18 08:30] VITALS: BP 149/86; PULSE 77; RESP 18; TEMP 36.5; O2SAT 96
== END 2025-02-18 08:31 | disposition home or self-care (01) ==
PROVIDERS: Emergency Provider Emergency Medicine Emergency Medical Services; PCP Internal Medicine
DX: S61.011A Laceration without foreign body of right thumb without damage to nail, initial encounter (principal); X58.XXXA Exposure to other specified factors, initial encounter; W26.9XXA Contact with unspecified sharp object(s), initial encounter; Y93.9 Activity, unspecified; Y92.9 Unspecified place or not applicable; Y99.8 Other external cause status; Z87.891 Personal history of nicotine dependence; Z79.899 Other long term (current) drug therapy; Z23 Encounter for immunization
CPT/HCPCS: 12001; 90471; 90715; 99282; 99284

== ENCOUNTER 2025-02-26 08:50 | Outpatient (AMB) | payer OTHER, SELFPAY ==
[2025-02-26 08:53] VITALS: BP 123/71; PULSE 84; BMI 25.7
--- NOTE | 2025-02-26 08:53 | MHC.OFFVIS ---
Vital Signs 02/26/25 08:53 Height 5 ft 8 in Weight 169 lb BMI 25.7 BP 123/71 Blood Pressure Location Rt brachial Position Sitting Pulse 84 Intake Visit Reasons: s/p appendectomy Intake Note: Patient here s/p Laparoscopic appendectomy. Patient c/o: no concerns. Reports incision healing well. 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 She tolerated the procedure well and was seen in the office 02/08/25 for wound check. She continues to do well postoperatively. She is tolerating solid diet, moving her bowels. She denies any abdominal pain. She notes a small lump under her incision on the left side. She has gradually begun to increase her activities and is asking about returning to the gym and the hot tub. She has no concerns. [facility] Medical History (Updated 02/19/25 @ 00:01 by Alonso Stover) Shoulder pain, left Annual physical exam COVID-19 Detached retina, left Surgical History (Updated 02/26/25 @ 09:16 by Marly Junior PA-C) S/P laparoscopic appendectomy (02/01/25) Hx of detached retina repair Hx of vein stripping H/O esophagogastroduodenoscopy H/O colonoscopy Family History Father HTN (hypertension) Cancer Substance use disorder Paternal Grandfather Heart attack Mother Infectious thyroiditis Alzheimer disease Maternal Grandmother Diabetes Brother Substance use disorder Social History Household Members: Children Housing: Condominium Do you presently have visiting nurse or other home services: No Alcohol intake: current Alcohol intake frequency: holidays/special occasions only Alcohol type: beer Patient Tobacco Use Status: Former Tobacco user e-Cigarette/Vaping Use: Never Used Second Hand Smoke Exposure: No Substance Use Type: Marijuana service: No Current occupational status: employed Cognitive needs: No Hearing needs: No Vision needs: Yes Review of Systems Const All systems reviewed & are unremarkable except as noted in HPI and below Physical Exam Vital Signs: Last Vital Signs Pulse 84 02/26/25 08:53 BP 123/71 02/26/25 08:53 BMI result Body Mass Index 25.7 Const General: comfortable, no acute distress and alert Orientation/consciousness: patient oriented x3 Resp Effort & Inspection: normal respiratory effort GI Other: incisions well healed, no erythema, very mild residual induration at LLQ port/incision site, nontender, no palpable hernia Skin General skin exam: no rashes or lesions noted and no jaundice Neuro General: patient oriented x3 and moves all extremities Assessment & Plan Assessment & Plan (1) S/P laparoscopic appendectomy: Onset Date: 02/01/25 Comment: Johnathon Gonzalez MD Code(s): Z90.49 - Acquired absence of other specified parts of digestive tract Category: Surgical Plan 64 year old female who underwent laparoscopic appendectomy on 02/01/25. She continues to do well post operatively with no concerns. Abdomen remains benign with well healed incisions, very mild residual induration at LLQ incision site but this is expected. She can begin to resume all activities at this point and gradually increase as tolerated. Ok for hot tub and swimming. She can follow up as needed. Patient comfortable with plan, all questions answered. Coding Level of Care Code Global (06460) Diagnoses S/P laparoscopic appendectomy Z90.49
--- OUTSIDE RECORDS SUMMARY | 2025-02-26 09:05 | XMS_ITS | Clinical Summary ---
Author Organization [facility] Address [address] [place] [address] Care Team Providers Care Russian History Professor Name Role Phone Unavailable Primary Care Provider [...]
== END 2025-02-26 09:16 | disposition home or self-care (01) ==
LOC: HO.HGS 08:51
PROVIDERS: PCP Internal Medicine; Visit Provider Physician Assistant Surgical
DX: Z90.49 Acquired absence of other specified parts of digestive tract (principal)
CPT/HCPCS: 99024

== ENCOUNTER → 2025-02-26 08:50 | Outpatient (BNVA) | payer OTHER, SELFPAY | PROVIDERS: PCP Internal Medicine; Visit Provider Physician Assistant Surgical ==

== ENCOUNTER 2025-03-02 14:02 | Outpatient (REF) | payer OTHER, SELFPAY ==
[2025-03-03 10:50] LABS: Appearance Urine Clear; Color Urine Yellow; Glucose Urine UA Negative (Negative); Leukocyte Esterase Urine Moderate (2+) (Negative); Nitrite Urine Negative (Negative); PH 6.5 (5.0-9.0); Specific Gravity - Urine <= 1.005 (1.005-1.025); UMIC TRIGGER UA YES; Urine Blood Negative (Negative); Urine Ketones Negative (Negative); Urine Protein Negative (Neg-Trace)
[2025-03-03 10:56] LABS: Bacteria Urine None Seen (None Seen); Hyaline Casts Urine 0-2 /LPF (0-2); RBC Urine 0-2 /HPF (0-2); Squamous Epithelial Cell Urine 0-2 /HPF (0-2); WBC Urine 21-50 /HPF (0-5)
--- OUTSIDE RECORDS SUMMARY | 2025-03-03 12:04 | XMS_ITS | Clinical Summary ---
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
== END 2025-03-02 14:03 | disposition home or self-care (01) ==
LOC: HO.LNP 14:02
PROVIDERS: PCP Internal Medicine; Visit Provider Physician Assistant Medical
DX: N39.0 Urinary tract infection, site not specified (principal); Z13.9 Encounter for screening, unspecified
CPT/HCPCS: 81001; 87086

== ENCOUNTER 2025-03-02 14:02 | Outpatient (AMB) | payer OTHER, SELFPAY ==
--- NOTE | 2025-03-02 14:21 | AM.OFFWIN_ITS ---
Intake Vital Signs 03/02/25 14:28 Weight 170 lb BP 130/80 Blood Pressure Location Rt brachial Position Sitting Pulse 68 Pulse Source Pulse Oximeter Temp 98.1 F Temp Source Oral Pulse Oximetry (%) 98 Oxygen Delivery Method Room Air Intake Visit Reasons: EP ? Bladder infection Intake Note: Patient here for bladder pressure, frequent urination, burning sensation. Patient Tobacco Use Status: Former Tobacco user Allergies sulfamethoxazole [From BACTRIM] Allergy (Intermediate, Verified 03/02/25 14:27) HIVES trimethoprim [From BACTRIM] Allergy (Intermediate, Verified 03/02/25 14:27) HIVES Sulfa (Sulfonamide Antibiotics) Allergy (Unknown, Verified 03/02/25 14:27) rash microbid Allergy (Mild, Uncoded 03/02/25 14:27) Headache Do you need a note to return to daycare/school/sports/work: No HPI HPI Comments History of Present Illness Details History of Present Illness - The patient is a 64-year-old female pr esenting with symptoms of a urinary tract infection. - Presents with dysuria and increased fr equency of urination, starting this morning. She has had episodes of incontinence as she was unable to hold it when going to the bathroom. - She has had UTIs in the past. - Reports burning during urination; no f ever or chills observed. - Denies vaginal discharge, hematuria, o r recent passage of kidney stones. - Recent surgical history includes an ap pendectomy performed three weeks ago, with no known Mendez catheter insertion during or post-operation. - Utilizes pyridium for urinary discomfo rt in the past and takes probiotics to prevent antibiotic-induced yeast infections. - She denies fever, chills, hematuria, v aginal bleeding, vaginal discharge, CP, or SOB. Physical Exam General: Cooperative, healthy appearing, comfortable, no acute distress and well developed Respiratory: Normal respiratory effort and able to speak in complete sentences. Clear to auscultation bilaterally Cardiovascular: Regular rate and rhythm. Normal S1 and S2 GI: Normal to inspection. Hypoactive BS noted. Soft to palpation and nontender. No guarding or rebound tenderness noted. No CVA tenderness noted. Skin: No rashes or lesions noted Patient was informed and verbally consented to the use of an ambient scribe for clinic note documentation during this visit. [facility] Medical History (Updated 02/19/25 @ 00:01 by Alonso Stover) Shoulder pain, left Annual physical exam COVID-19 Detached retina, left Surgical History (Updated 02/26/25 @ 09:16 by Marly Junior PA-C) S/P laparoscopic appendectomy (02/01/25) Hx of detached retina repair Hx of vein stripping H/O esophagogastroduodenoscopy H/O colonoscopy Family History Father HTN (hypertension) Cancer Substance use disorder Paternal Grandfather Heart attack Mother Infectious thyroiditis Alzheimer disease Maternal Grandmother Diabetes Brother Substance use disorder Social History Household Members: Children [facility] Do you presently have visiting nurse or other home services: No Alcohol intake: current Alcohol intake frequency: holidays/special occasions only Alcohol type: beer Patient Tobacco Use Status: Former Tobacco user e-Cigarette/Vaping Use: Never Used Second Hand Smoke Exposure: No Substance Use Type: Marijuana service: No Current occupational status: employed Cognitive needs: No Hearing needs: No Vision needs: Yes Review of Systems Const All systems reviewed & are unremarkable except as noted in HPI and below Physical Exam Vital Signs: Last Vital Signs Temp 98.1 F 03/02/25 14:28 Pulse 68 03/02/25 14:28 BP 130/80 03/02/25 14:28 Pulse Ox 98 03/02/25 14:28 Oxygen Delivery Method Room Air 03/02/25 14:28 Results AMB Urinalysis, Automated UA Leukoctes 500 Camille/uL Last Edit by ARNALDO Quintero on 03/02/25 14: 36 UA Nitrite Negative Last Edit by ARNALDO Quintero on 03/02/25 14:36 UA Urobilinogen 0.2 mg/dL Last Edit by ARNALDO Quintero on 03/02/25 14:36 UA Protein 0 mg/dL Last Edit by ARNALDO Quintero on 03/02/25 14:36 UA pH 6.0 Last Edit by ARNALDO Quintero on 03/02/25 14:36 UA Blood 0 Missael/uL Last Edit by ARNALDO Quintero on 03/02/25 14:36 UA Specific [place] 1.005 Last Edit by ARNALDO Quintero on 03/02/25 14:36 UA Ketone Negative Last Edit by ARNALDO Quintero on 03/02/25 14:36 UA Bilirubin 0 mg/dL Last Edit by ARNALDO Quintero on 03/02/25 14:36 UA Glucose 0 mg/dL Last Edit by ARNALDO Quintero on 03/02/25 14:36 Results Reviewed Results Reviewed: Laboratory Last Values Urine pH (Auto) 6.0 03/02/25 14:34 Specific [place] (Auto) 1.005 03/02/25 14:34 Urine Protein (Auto) 0 mg/dL 03/02/25 14:34 Glucose (UA)(Auto) 0 mg/dL 03/02/25 14:34 Urine Ketones (Auto) Negative 03/02/25 14:34 Urine Blood (Auto) 0 Missael/uL 03/02/25 14:34 Urine Nitrite (Auto) Negative 03/02/25 14:34 Urine Bilirubin (Auto) 0 mg/dL 03/02/25 14:34 Urine Urobilinogen (Auto) 0.2 mg/dL 03/02/25 14:34 Leukocyte Esterase (Auto) 500 Camille/uL 03/02/25 14:34 Assessment & Plan Assessment & Plan (1) Dysuria: Code(s): R30.0 - Dysuria Plan Most likely UTI UA in the office 3+leuko Plan - Start antibiotic regimen for symptomatic relief of the urinary tract infection. - Use phenazopyridine as an adjunctive treatment for bladder discomfort symptoms. - Continue probiotic consumption as a preventative measure against possible yeast infections. - Monitor for any complications considering recent appendectomy, particularly relating to recovery. - Confirm absence of fever or chills as a positive indicator of no severe infection presence currently. - Will send UC. - Drink lots of fluids. - F/u with PCP. Orders: Orders Urine Culture Today N39.0 - Urinary tract infection, site not specified AMB Urinalysis Automated Today Z13.9 - Encounter for screening, unspecified Medications: New cefuroxime axetil 500 mg PO Q12H 5 days 10 tabs 0RF phenazopyridine 200 mg (2 x 100 mg) PO tid 2 days PRN 12 tabs 0RF Pain Coding Level of Care Code Est Pt Level 3 (77220) Diagnoses Dysuria R30.0
[2025-03-02 14:28] VITALS: BP 130/80; PULSE 68; TEMP 36.7; O2SAT 98
--- OUTSIDE RECORDS SUMMARY | 2025-03-02 16:46 | XMS_ITS | Clinical Summary ---
Author Organization [facility] Address [address] [place] [address] Care Team Providers Care Statistical Programmer Name Role Phone Unavailable Primary Care Provider [...]
== END 2025-03-02 15:56 | disposition home or self-care (01) ==
PROVIDERS: PCP Internal Medicine; Visit Provider Physician Assistant Medical
DX: R30.0 Dysuria (principal)

== ENCOUNTER 2025-03-24 12:41 | Outpatient (AMB) | payer OTHER, SELFPAY ==
--- OUTSIDE RECORDS SUMMARY | 2024-04-09 11:21 | XMS_ITS | Continuity of Care Document ---
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 [address] [place] [address] 302, [place], [id number], [place]. tel:[phone] Office/Outpt E&M Established 15 Mins- CT & [place] [facility], [address] [place] [address] Dr Guerrero 1000SuSheeba shafer MD, [id number], [place] tel:[phone] CVR - [place] Varicose veins of bilateral lower extremities with other complications 4 Cruz ELLER RVT, DAVID Salas. [address] [place] [address], [facility] 302, Hussain sanchez [place], [id number], [place]. tel:[phone] Referring Provider: Stoney Perez MD S, [address] [place] [address] [address], [place], [address]. tel:[phone] [facility], [address] [place] [address] Dr Guerrero 1000Suite [place] Wiley MD, [id number], [place] tel:[phone] CVR - [place] Varicose veins of left lower extremity with pain 4 Cruz ELLER RVT, RPVI Robert. [address] [place] [address], [facility] [place], [id number], [place]. tel:[phone] Referring Provider: Kristine Nielson MD S, [address] [place] [address], [place], [address]. tel:[phone] [facility], [address] [place] [address] Dr Guerrero 1000Suite [place] Wiley MD, [id number], [place] tel:[phone] CVR - [place] Encounter for follow-up examination after completed treatment for conditions other than malignant neVaricose veins of left lower extremity with pain 4 Cruz ELLER RVT, RPVI Robert. [address] [place] [address], [place]ain s[place], [id number], [place]. tel:[phone] Referring Provider: Kristine Nielson MD S, [address] [place] [address], [place], [address]. tel:[phone] [facility], [address] [place] [address] Dr Guerrero 1000Suite [place] Wiley [place], [id number], [place] tel:[phone] CVR - [place] Varicose veins of left lower extremity with other complications Brandon-0 4 Jarrod Pierre. [address] [place] [address] [address], [facility] [place], [id number], [place]. tel:[phone] Referring Provider: Kristine Nielson MD S, [address] [place] [address], [place], [address]. tel:[phone] [facility], [address] [place] [address] [address]Sheeba [place], [id number], [place] tel:[phone] CVR - [place] Encounter for follow-up examination after completed treatment for conditions other than malignant neVaricose veins of left lower extremity with pain Brandon-0 4 Cruz ELLER, JACQUI, DAVID Salas. [address] [place] [address], [facility] [place], [id number], [place]. tel:[phone] Referring Provider: Kristine Nielson MD S, [address] [place] [address], [place], [address]. tel:[phone] [facility], [address] [place] [address] Dr Guerrero [address] [address] [place], [id number], [place] tel:[phone] CVR - [place] Varicose veins of left lower extremity with other complications 4 Cruz ELLER, JACQUI, DAVID Salas. [address] [place] [address], [facility] [place], [id number], [place]. tel:[phone] Referring Provider: Kristine Nielson MD S, [address] [place] [address], [place], [address]. tel:[phone] Offic/outpt E&m Estab 5 Min Trial- Telemedicine CT & [place] [facility], [address] [place] [address] Dr Guerrero 1000[address] 1000She[place], [id number], [place] tel:[phone] CVR - [place] Localized edemaCramp and spasmRestless legs syndromeVenou s insufficiency (chronic) (peripheral) 4 Jarrod Pierre. [address] [facility], [address], [facility] [place] [place], [id number], [place]. tel:[phone] Referring Provider: Kristine Nielson MD S, [address] [facility], [place], [address]. tel:[phone] Offic Cons New/estab Mod 40 Mi [facility], [address] [place] [address] [facility] 1000[address] 1000She[place], [id number], [place] tel:[phone] CVR - [place] Varicose veins of left lower extremity with other complications Pain in left lower legPain in left legLocalized edemaRestless legs syndromeCramp and spasm 4 Cruz ELLER, JACQUI, DAVID Slaas. [address] [place] [address], Hussain sanchez [place], [id number], [place]. tel:[phone] [facility], [address] [place] [address] [facility] [address], [place], [id number], [place] tel:[phone] CVR - [place] Varicose veins of left lower extremity with pain 4 Cruz ELLER, JACQUI, DAVID Salas. [address] [place] [address], [place], [id number], [place]. tel:[phone] Family History Family Member Type Diagnosis Age At Onset No Information Payers Payer name Insurance type Covered democrat ID Josee wiley(s) [facility] [id number] Social History Type Description Quantity Date Captured [...] Information Instructions Date Instruction Additional Infor melodynarendra Giving Encouragement to exercise Related to Body mass index (BMI) 25.0-25.9, adult Lifestyle education Related to B dae mass index (BMI) 25.0-25.9, adult Diet education Related to Body mass index (BMI) 25.0-25.9, adult Patient education booklet given Related to Varicose veins of bilateral lower extremities with other complications Pre and post instruc tions reviewed and provided Related to Varicose veins of bilateral lower extremities with other complications Pre and post instruc tions reviewed and provided Related to Localized edema Compression stocking usage as conservative measure Related to Localized edema Diet education Related to Body mass index (BMI) 25.0-25.9, adult Giving Encouragement to exercise Related to Body mass index (BMI) 25.0-25.9, adult Lifestyle education Related to B dae mass index (BMI) 25.0-25.9, adult Patient education booklet given Related to Varicose veins of left lower extremity with other complications Pre and post instruc tions reviewed and provided Related to Varicose veins of left lower extremity with other complications Assessments Type Assessment Date No Information Patient Care Teams Name Effective Dates (start - stop) Status Members No Information
[2025-03-24 12:52] VITALS: BP 130/80; PULSE 77; RESP 18; TEMP 36.7; O2SAT 98; BMI 25.8
--- NOTE | 2025-03-24 12:52 | MHC.PC.OV ---
Vital Signs 03/24/25 12:52 Height 5 ft 8 in Weight 170 lb BMI 25.8 BP 130/80 Blood Pressure Location Lt brachial Position Sitting Respiration 18 Pulse 77 Pulse Source Pulse Oximeter Temp 98.1 F Temp Source Oral Pulse Oximetry (%) 98 Oxygen Delivery Method Room Air Intake Visit Reasons: Possible UTI Intake Note: Pt is here today for a sick visit. Pt c/o vaginal discomfort, and burning pt was treated with antibiotic for bladder infection couple weeks ago. Allergies sulfamethoxazole (From BACTRIM) Allergy (Intermediate, Verified 03/24/25 12:59) HIVES trimethoprim (From BACTRIM) Allergy (Intermediate, Verified 03/24/25 12:59) HIVES Sulfa (Sulfonamide Antibiotics) Allergy (Unknown, Verified 03/24/25 12:59) rash microbid Allergy (Mild, Uncoded 03/24/25 12:59) Headache Medication List - Last Reconciled 03/24/25 by Kristine Nielson MD docusate sodium (Colace) 100 mg PO BID lactobacillus combination no.9 (Adult 50 Plus Probiotic) 1 cap PO DAILY multivitamin 1 tab PO DAILY omega 7-izs-lvs-fish oil 1,000 (120-180) mg (Fish Oil) 1 cap PO DAILY Tobacco use date assessed: 02/08/25 Dental Screening Dental Screen Date: 02/08/25 HPI Possible UTI HPI Details Patient presents complaining of vaginal pressure and discomfort worse when standing for long time. She denies dysuria pelvic or abdominal pain fever chills nausea vomiting constipation or vaginal discharge PFSH Medical History (Updated 03/24/25 @ 15:56 by Kristine Nielson MD) Prolapsed uterus Shoulder pain, left Annual physical exam COVID-19 Detached retina, left Surgical History S/P laparoscopic appendectomy (02/01/25) Hx of detached retina repair Hx of vein stripping H/O esophagogastroduodenoscopy H/O colonoscopy Family History Father HTN (hypertension) Cancer Substance use disorder Paternal Grandfather Heart attack Mother Infectious thyroiditis Alzheimer disease Maternal Grandmother Diabetes Brother Substance use disorder Social History Household Members: Children Housing: [facility] Do you presently have visiting nurse or other home services: No Alcohol intake: current Alcohol intake frequency: holidays/special occasions only Alcohol type: beer Patient Tobacco Use Status: Former Tobacco user e-Cigarette/Vaping Use: Never Used Second Hand Smoke Exposure: No Substance Use Type: Marijuana service: No Current occupational status: employed Cognitive needs: No Hearing needs: No Vision needs: Yes Questionnaire Thrive Questionnaire Date Thrive assessed: 02/08/25 I am a: Patient What is your living situation today?: I have a steady place to live Within the past 12 months, did the food you bought not last and you didn't have the money to get more?: Never true Within the past 12 months, did you worry whether your food would run out before you got money to buy more?: Never true Do you have trouble paying for medicines?: No Do you have trouble getting transportation to medical appointments?: No Do you have trouble paying your heating and electricity bill?: No Do you have trouble taking care of your child, family member or friend?: No Do you have trouble with day-to-day activities such as bathing, preparing meals, shopping, managing finances, etc.?: No Are you currently unemployed and looking for a job?: No Are you interested in more education?: No Please select the resources that you would like help with: None Currently or been in a relationship where the following occur: No concerns reported THRIVE Score: 0 MARQUIS-7 AMB Questionnaire MARQUIS-7 Date MARQUIS - 7 assessed: 02/08/25 Source: Developed by Drs. Josue Montgomery, Gerri Jordan, Jemal Mejia and colleagues, with an educational shin from [employer]. Review of Systems Const All systems reviewed & are unremarkable except as noted in HPI and below Resp Reports no additional complaints GI Reports no additional complaints Reports no additional complaints Physical exam (Primary Care) Vital Signs: Last Vital Signs Temp 98.1 F 03/24/25 12:52 Pulse 77 03/24/25 12:52 Resp 18 03/24/25 12:52 BP 130/80 03/24/25 12:52 Pulse Ox 98 03/24/25 12:52 Oxygen Delivery Method Room Air 03/24/25 12:52 BMI result Body Mass Index 25.8 Tobacco/Smoking Status: Tobacco use Status Tobacco use date assessed 02/08/25 03/24/25 12:54 Patient Tobacco Use Status Former Tobacco user 03/24/25 12:54 e-Cigarette/Vaping Use Never Used 03/24/25 12:54 Thrive Assessment: Date of Thrive Assessment Date Thrive assessed 02/08/25 03/24/25 12:54 Currently or been in a relationship where the following occur: No concerns reported Const General: no acute distress Resp Effort & Inspection: normal respiratory effort Auscultation: clear to auscultation bilaterally Cardio Rhythm: regular rhythm Heart sounds: S1 normal heart sound present and S2 normal heart sound present Speculum Exam - Vagina: vagina atrophic Speculum Exam - Cervix: nontender Bimanual exam- vagina & uterus: No Cervical tenderness present and Uterus displaced (There is a cervix and uterus felt in lower half of vagina) Bimanual Exam- Adnexa, other: vaginal apex descent Results AMB Urinalysis, Automated UA Leukoctes 0 Camille/uL Last Edit by ARELY Victor on 03/24/25 13:22 UA Nitrite Negative Last Edit by Roseline Nieto Naveen on 03/24/25 13:22 UA Urobilinogen 0.2 mg/dL Last Edit by Roseline Nieto Naveen on 03/24/25 13:22 UA Protein 0 mg/dL Last Edit by Roseline Nieto Naveen on 03/24/25 13:22 UA pH 6.0 Last Edit by Roseline Nieto Naveen on 03/24/25 13:22 UA Blood 0 Missael/uL Last Edit by Roseline Nieto Naveen on 03/24/25 13:22 UA Specific [place] 1.030 Last Edit by Roseline Nieto Naveen on 03/24/25 13:22 UA Ketone Negative Last Edit by Roseline Nieto Naveen on 03/24/25 13:22 UA Bilirubin 0 mg/dL Last Edit by Roseline Nieto Naveen on 03/24/25 13:22 UA Glucose 0 mg/dL Last Edit by Roseline Nieto Naveen on 03/24/25 13:22 Results Reviewed Results Reviewed: Laboratory Last Values Urine pH (Auto) 6.0 03/24/25 13:20 Specific [place] (Auto) 1.030 03/24/25 13:20 Urine Protein (Auto) 0 mg/dL 03/24/25 13:20 Glucose (UA)(Auto) 0 mg/dL 03/24/25 13:20 Urine Ketones (Auto) Negative 03/24/25 13:20 Urine Blood (Auto) 0 Missael/uL 03/24/25 13:20 Urine Nitrite (Auto) Negative 03/24/25 13:20 Urine Bilirubin (Auto) 0 mg/dL 03/24/25 13:20 Urine Urobilinogen (Auto) 0.2 mg/dL 03/24/25 13:20 Leukocyte Esterase (Auto) 0 Camille/uL 03/24/25 13:20 Coding Level of Care Code Est Pt Level 3 (76480) Diagnoses Prolapsed uterus N81.4 Assessment & Plan Assessment & Plan (1) Prolapsed uterus: Code(s): N81.4 - Uterovaginal prolapse, unspecified Category: Medical Plan: Referred to urogynecologist at [facility] Orders: Orders Comprehensive [place]. Panel Fast Today E55.9 - Vitamin D deficiency, unspecified, Z00.00 - Encounter for general adult medical examination without abnormal findings Complete Blood Count Auto Diff Today E55.9 - Vitamin D deficiency, unspecified, Z00.00 - Encounter for general adult medical examination without abnormal findings TSH reflex Free T4 Today E55.9 - Vitamin D deficiency, unspecified, Z00.00 - Encounter for general adult medical examination without abnormal findings AMB Urinalysis Automated Today Z13.9 - Encounter for screening, unspecified Lipid Panel Today E55.9 - Vitamin D deficiency, unspecified, Z00.00 - Encounter for general adult medical examination without abnormal findings Vitamin D 25-OH Total Today E55.9 - Vitamin D deficiency, unspecified, Z00.00 - Encounter for general adult medical examination without abnormal findings Referrals Urogynecology Referral N81.4 - Uterovaginal prolapse, unspecified
--- OUTSIDE RECORDS SUMMARY | 2025-03-24 13:10 | XMS_ITS | Clinical Summary ---
Author Organization [facility] Address [address] [place] [address] Care Team Providers Care Brand Engineer Name Role Phone Unavailable Primary Care Provider [...]
== END 2025-03-24 13:29 | disposition home or self-care (01) ==
LOC: HO.HMCC 12:42
PROVIDERS: PCP Internal Medicine; Visit Provider Internal Medicine
DX: Z13.9 Encounter for screening, unspecified (principal); N81.4 Uterovaginal prolapse, unspecified

== ENCOUNTER → 2025-03-24 12:41 | Outpatient (BNVA) | payer OTHER, SELFPAY | PROVIDERS: PCP Internal Medicine; Visit Provider Internal Medicine | DX: N81.4 Uterovaginal prolapse, unspecified (principal); E55.9 Vitamin D deficiency, unspecified | CPT/HCPCS: 81003 ==

== ENCOUNTER 2025-08-06 13:38 | Outpatient (AMB) | payer OTHER, SELFPAY ==
--- NOTE | 2025-08-06 13:40 | MHC.OFFVIS ---
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 Required: No Accompanied by: Self / Same As Patient Allergies sulfamethoxazole (From BACTRIM) Allergy (Intermediate, Verified 08/06/25 13:44) HIVES trimethoprim (From BACTRIM) Allergy (Intermediate, Verified 08/06/25 13:44) HIVES Sulfa (Sulfonamide Antibiotics) Allergy (Unknown, Verified 08/06/25 13:44) rash microbid Allergy (Mild, Uncoded 03/24/25 12:59) Headache Medication List - Last Reconciled 08/06/25 by Trey Biggs NP lactobacillus combination no.9 (Adult 50 Plus Probiotic) 1 cap PO DAILY multivitamin 1 tab PO DAILY omega 9-qsx-zgf-fish oil 1,000 (120-180) mg (Fish Oil) 1 cap PO DAILY HPI Comments Details: This is a 64-year-old female patient coming in for a follow-up visit. Patient with a history of palpitations and PACs with a an episode of SVT on Holter previously seen. Patient has been following with us for palpitations. Today, patient is reporting that about 2 weeks ago patient had palpitations for a day and half where she could feel her heart rate was irregular and her blood pressures were also along with the place at that time. Patient does not really know what triggered this but has not had any recurrence since. Patient is denying any associated symptoms of exertional chest pain, shortness of breath, dizziness, orthopnea, PND, leg edema, presyncope or syncope. Patient is denying any use of stimulants or caffeinated beverages. [facility] Medical History Prolapsed uterus Shoulder pain, left Annual physical exam COVID-19 Detached retina, left Surgical History S/P laparoscopic appendectomy (02/01/25) Hx of detached retina repair Hx of vein stripping H/O esophagogastroduodenoscopy H/O colonoscopy Family History Father HTN (hypertension) Cancer Substance use disorder Paternal Grandfather Heart attack Mother Infectious thyroiditis Alzheimer disease Maternal Grandmother Diabetes Brother Substance use disorder Social History Household Members: Children Housing: [facility] Do you presently have visiting nurse or other home services: No Alcohol intake: current Alcohol intake frequency: holidays/special occasions only Alcohol type: beer Patient Tobacco Use Status: Former Tobacco user e-Cigarette/Vaping Use: Never Used Second Hand Smoke Exposure: No Substance Use Type: Marijuana service: No Current occupational status: employed Cognitive needs: No Hearing needs: No Vision needs: Yes Review of Systems Const Denies daytime sleepiness, Denies difficulty sleeping, Denies snoring, Denies stops breathing during sleep and Denies weakness Card Denies chest pain, Denies rapid heart rate, Denies irregular heart rhythm, Denies claudication, Denies leg edema, Denies lightheadedness, Reports palpitations, Denies dyspnea, Denies dyspnea on exertion, Denies orthopnea, Denies paroxysmal nocturnal dyspnea and Denies slow heart rate Resp Denies cough, Denies dyspnea, Denies dyspnea on exertion and Denies snoring GI Reports no additional complaints, Denies hematochezia, Denies change in stool character and Denies dyspepsia Musc Denies abnormal gait, Denies muscle weakness and Denies numbness Neuro Denies abnormal gait, Denies numbness and Denies weakness Endo Reports palpitations Physical Exam Vital Signs: Last Vital Signs Pulse 97 08/06/25 13:41 BP 124/70 08/06/25 13:41 BMI result Body Mass Index 26.6 Const General: cooperative, healthy appearing, comfortable and no acute distress Orientation/consciousness: patient oriented x3 HEENT Head: Yes normal to inspection Neck Neck: Yes normal visual inspection, Yes trachea midline and Yes supple Chest Chest palpation & inspection: normal inspection of the chest Resp Effort & Inspection: normal respiratory effort Auscultation: clear to auscultation bilaterally, no crackles, no rales, no rhonchi and no wheezes Cardio Jugular venous distension: no JVD Palpation: normal PMI Rate: regular rate Rhythm: regular rhythm Heart sounds: S1 normal heart sound present, S2 normal heart sound present, no click, no gallops, no murmurs and no rubs Peripheral pulses: Peripheral pulses 2+ throughout GI Inspection: Yes normal to inspection Palpation (GI): Soft to palpation Auscultation: normal bowel sounds Skin General skin exam: no rashes or lesions noted Neuro General: patient oriented x3 Extrem General: Yes normal to inspection, No no pedal edema and No calf tenderness Psych Appearance: grossly normal Mental Status: mental status grossly normal Speech and movement: Normal speech and movement present Office Procedures EKG Details: EKG today showed normal sinus rhythm, rate 97 beats per minute, nonspecific STT wave, normal NH, [place]. [id number], Complete Assessment & Plan Assessment & Plan (1) Heart palpitations: Comment: Negative cardiac workup including Holter 2021 Code(s): R00.2 - Palpitations Category: Medical Plan: EKG today is normal sinus rhythm. Patient with a history of PACs and SVT on a Holter back in 2022. Since last time patient was seen, patient states she had 1 episode of palpitations that lasted almost 2 days. Patient felt like she had some irregular heart rates and blood pressures were all over the place at that time. Patient almost was going to the hospital but resolved spontaneously. Most likely patient's symptoms are from the PACs however we will repeat a Holter to assess for potential arrhythmias like AFib. Advised on adequate hydration, regular exercise and, avoiding caffeinated beverages, and stress mitigation strategies. (2) Atrial arrhythmia: Code(s): I49.8 - Other specified cardiac arrhythmias Category: Medical Plan: As above. Follow up in 1 year, sooner if needed. In the interim, patient will call the office with any concerns or change in symptoms. This note was generated using voice recognition software. While every effort has been made to ensure accuracy and proper chief nurse executive, there may be occasional errors that could affect the content or meaning of the described symptoms. Orders: Orders AMB EKG-In Office Today R00.2 - Palpitations ECG 7 day holter monitor Today R00.2 - Palpitations Coding Level of Care Code Est Pt Level 4 (00508) Complex EM visit Add On G2211 Diagnoses Heart palpitations R00.2 Atrial arrhythmia I49.8 CPT Codes EKG - CPT: 73598-[id number], Complete ([id number]) Time Spent (min) 32 Comment Time spent in reviewing the chart, test results, assessment, counseling and documentation.
[2025-08-06 13:41] VITALS: BP 124/70; PULSE 97; BMI 26.6
--- OUTSIDE RECORDS SUMMARY | 2025-08-06 20:01 | XMS_ITS | Clinical Summary ---
Author Organization [facility] Address [address] [place] [address] [place] [phone] Phone Care Team Providers Care Elevator Service Technician Name Role Phone Alaina Lala MD Primary Care Provide r Pcp, Unknown Unavailable Unavailable Allergies Active Allergy Reactions Criticality Noted Date Comments Sulfamethoxazole-Trimethoprim 2016 Medications prednisoLONE acetate (PRED FORTE) 1 % ophthalmic suspension INSTILL 1 DROP INTO THE LEFT EYE 4 TIMES DAILY 08/08/2018 Active albuterol 90 mcg/actuation inhaler Inhale 2 puffs into the lungs every 6 (six) hours as needed for wheezing. 18 g 11/29/2024 Active Active Problems No known active problems Social History Tobacco Use Types Packs/Day Years Used Date Smoking Tobacco: Former Smokeless Tobacco: Former Tobacco Cessation:Counseling Given: Not Answered Alcohol Use Standard Drinks/Week Comments Yes 0 (1 standard drink = 0.6 oz pur e alcohol) Education Answer Date Recorded Are you interested in more education? Not on marc e 01/18/2023 Are you concerned about learning? Not on file 01/18/2023 No 01/18/2023 No 01/18/2023 Digital Access Answer Date Recorded No 02/16/2023 No 02/16/2023 Reliable internet access at home? Not on file 02/16/2023 Device with a working camera? Not on file Comments No Sex and Gender Information Value Date Recorded Sex Assigned at Female 09/30/2017 9:38 AM EST Legal Sex Female 9:49 PM EDT Gender Identity Female 09/30/2017 9:38 AM EST Sexual Orientation Straight 09/30/2017 9: 38 AM EST Last Filed Vital Signs Vital Sign Reading Time Taken Comments Blood Pressure 135/86 11/29/2024 2:22 PM EDT Pulse 93 11/29/2024 2:22 PM EDT Temperature 36.8 C (98.3 F) 11/29/2024 2:22 PM EDT Respiratory Rate 18 11/29/2024 2:22 PM EDT Oxygen Saturation 97% 11/29/2024 2:22 PM EDT Inhaled Oxygen Concentration - - Weight 76.2 kg (168 lb) 11/29/2024 2:22 PM EDT Height 172.7 cm (5' 8 ) 11/29/2024 2:22 PM EDT Body Mass Index 25.54 11/29/2024 2:22 PM EDT Plan of Treatment Health Maintenance Due Date Last Done Comments LIPID PANEL 1959 DEPRESSION SCREENING 1971 SMOKING Hx and SMOKELESS TOBACCO SCREENING 11/21/1972 HEPATITIS C SCREENING 11/21/1977 HIV ONE-TIME SCREENING (18-6 5 YEARS) 11/21/1977 MAMMOGRAM 1999 COLOGUARD 11/21/2004 COLONOSCOPY 11/21/2004 COLORECTAL CANCER SCREENING 11/21/2004 FIT TEST 11/21/2004 FOBT 11/21/2004 SIGMOIDOSCOPY 11/21/2004 VIRTUAL COLONOSCOPY 11/21/2004 PNEUMOCOCCAL VACCINES (50+ years) (1 of 1 - PCV) 11/21/2009 ZOSTER VACCINES (1 of 2) 11/21/2009 SCREENING FOR DIABETES 09/20/2020 09/20/2017 OSTEOPOROSIS SCREENING INITI AL (ONE-TIME) 11/21/2024 INFLUENZA VACCINE (#1) 2025 COVID-19 VACCINE (3 - 2024-2 6 season) 2025 02/03/2021, 01/06/2021 Adult Td,Tdap Booster 06/27/2030 06/27/2020 RSV VACCINE (1 - 1-dose 75+ series) 11/21/2034 HEPATITIS A VACCINES Aged Out No long er eligible based on patient's age to complete this topic HIB VACCINES Aged Out No longer eligi ble based on patient's age to complete this topic IPV VACCINES Aged Out No longer eligi ble based on patient's age to complete this topic MENINGOCOCCAL VACCINES (ACWY) Aged Out No longer eligible based on patient's age to complete this topic MENINGOCOCCAL VACCINES (B) Aged Out N o longer eligible based on patient's age to complete this topic Medical Devices Not on file Insurance [place] [address] [place] [id number] [place], [place] [address]O [facility] Care Teams Elevator Service Technician Relationship Specialty Start Date End Date Alaina Lala MD [address] [place] [phone] PCP - General Geriatric Psychiatry 11/24/18 Pcp, Unknown 11/24/18 Additional Source Comments The information contained in this document represents components of the legal health record. It is not the complete legal health record.[facility]
== END 2025-08-06 14:08 | disposition home or self-care (01) ==
LOC: HO.HCS 13:39
PROVIDERS: PCP Internal Medicine
DX: R00.2 Palpitations (principal); I49.8 Other specified cardiac arrhythmias
CPT/HCPCS: 93010; 99214; G2211

== ENCOUNTER → 2025-08-06 13:38 | Outpatient (BNVA) | payer OTHER, SELFPAY | PROVIDERS: PCP Internal Medicine | DX: R00.2 Palpitations (principal); I49.8 Other specified cardiac arrhythmias | CPT/HCPCS: 93005 ==

== ENCOUNTER 2025-08-30 15:09 | Outpatient (AMB) | payer OTHER, SELFPAY ==
--- OUTSIDE RECORDS SUMMARY | 2024-04-09 10:21 | XMS_ITS | Continuity of Care Document ---
Author Organization [facility] Address [address] [place] [address] Dr [address] [place] [id number] Phone Care Team Providers Care Injector Assembler Name Role Phone Cruz ELLER, JACQUI, Josue HERNANDEZ Unavailable U navailable Procedures Procedure Date Office/Outpt E&M Established 15 Mins- CT & [place] Duplex Scan-extrem Veins; Uni/ CT & [place] J Duplex Scan-extrem Veins; Uni/ CT & [place] J Inj Scleros Solut; Mx Veins 1- CT & [place] J Ultrason Guidan Needle Bx-rad- CT & MA J Duplex Scan-extrem Veins; Uni/ CT & MA J Endovenous Laser, 1st Vein- CT & [place] Offic/outpt E&m Estab 5 Min Trial- Telem edicine CT & MA Offic Cons New/estab Mod 40 Mi 24 Surgical Stockings CVR Reveal Thigh High Duplex Scan-extrem Veins; Uni/ 24 Advance Directives Directive Yes / No Effective Date File Name No Information Encounters Encounter Description Practice Location Reason(s) For Visit Diagnoses Date Provider Providers Copied on Encounter [facility], [address] [place] [address] Dr Guerrero [address], [place], [id number], [place] tel:[phone] CVR - - [place] No Information 4 Cruz ELLER, JACQUI, DAVID Salas. [address] [place] [address] [address], [place], [id number], [place]. tel:[phone] Office/Outpt E&M Established 15 Mins- CT & [place] [facility], [address] [place] [address] Dr Guerrero [address]Su[place]eba shafer [place], [id number], [place] tel:[phone] [place] Varicose veins of bilateral lower extremities with other complications 4 Cruz ELLER RVT, DAVID Salas. [address] [place] [address], [facility] [address], [place], [id number], [place]. tel:[phone] Referring Provider: Stoney Perez MD S, [address] [place] [address] [address], [place], [address]. tel:[phone] [facility], [address] [place] [address] Dr Guerrero [address]Suite [place], [id number], [place] tel:[phone] CV[place] Varicose veins of left lower extremity with pain 4 Cruz ELLER RVT, RPVI Robert. [address] [place] [address], [facility] [place], [id number], [place]. tel:[phone] Referring Provider: Kristine Nielson MD S, [address] [place] [address], [place], [address]. tel:[phone] [facility], [address] [place] [address] Dr Guerrero [address]Suite [place], [id number], [place] tel:[phone] CVR - [place] Encounter for follow-up examination after completed treatment for conditions other than malignant neVaricose veins of left lower extremity with pain 4 Cruz ELLER RVT, RPVI Robert. [address] [place] [address], [place], [id number], [place]. tel:[phone] Referring Provider: Kristine Nielson MD S, [address] [place] [address], [place], [address]. tel:[phone] [facility], [address] [place] [address] Dr Guerrero [address] [place], [id number], [place] tel:[phone] CV[place] Varicose veins of left lower extremity with other complications Brandon-0 4 Jarrod Pierre. [address] [place] [address] [address], [facility] [place], [id number], [place]. tel:[phone] Referring Provider: Kristine Nielson MD S, [address] [place] [address], [place], [address]. tel:[phone] [facility], [address] [place] [address] [address], [id number], [place] tel:[phone] CVR [place] Encounter for follow-up examination after completed treatment for conditions other than malignant neVaricose veins of left lower extremity with pain Brandon-0 4 Cruz ELLER, JACQUI, DAVID Salas. [address] [place] [address], [facility] [place], [id number], [place]. tel:[phone] Referring Provider: Kristine Nielson MD S, [address] [place] [address], [place], [address]. tel:[phone] [facility], [address] [place] [address] Dr Gu[address]ro [address] [address] [place], [id number], [place] tel:[phone] CVR - [place] Varicose veins of left lower extremity with other complications 4 Cruz ELLER, JACQUI, DAVID Salas. [address] [place] [address], [facility] [place], [id number], [place]. tel:[phone] Referring Provider: Kristine Nielson MD S, [address] [place] [address], [place], [address]. tel:[phone] Offic/outpt E&m Estab 5 Min Trial- Telemedicine CT & [place] [facility], [address] [place] [address] Dr Guerrero [address], [id number], [place] tel:[phone] CVR [place] Localized edemaCramp and spasmRestless legs syndromeVenou s insufficiency (chronic) (peripheral) 4 Jarrod Pierre. [address] [facility], [address], [facility] [place], [id number], [place]. tel:[phone] Referring Provider: Kristine Nielson MD S, [address] [facility], [place], [address]. tel:[phone] Offic Cons New/estab Mod 40 Mi [facility], [address] [place] [address] [facility] [address], [id number], [place] tel:[phone] CVR [place] Varicose veins of left lower extremity with other complications Pain in left lower legPain in left legLocalized edemaRestless legs syndromeCramp and spasm 4 Cruz ELLER, JACQUI, DAVID Salas. [address] [place] [address], [place], [id number], [place]. tel:[phone] [facility], [address] [place] [address] [facility] [address], [place], [id number], [place] tel:[phone] CVR - [place] Varicose veins of left lower extremity with pain 4 Cruz ELLER, JACQUI, DAVID Salas. [address] [place] [address], [place], [id number], [place]. tel:[phone] Family History Family Member Type Diagnosis Age At Onset No Information Payers Payer name Insurance type Covered green party ID Josee wiley(s) [facility] [id number] Social History Type Description Quantity Date Captured Comments Sex Female Smoking Status No Information Chief Complaint And Reason For Visit No Information Reason For Referral Reason For Referral No Information Plan Of Treatment Date Type Action Status Goal Diet education completed Goal Diet education completed Referral Ordered: Weight management: Referral to physician timeframe: 3 Months (related to Body mass index (BMI) 25.0-25.9, adult) ordered Referral Ordered: Weight management: Referral to physician timeframe: 3 Months (related to Body mass index (BMI) 25.0-25.9, adult) ordered History Of Present Illness Encounter Date Complaint History Of Prese nt Illness No Information Functional Status Date Functional Assessmen t No Information Instructions Date Instruction Additional Infor melodynarendra Patient education booklet given Related to Varicose veins of bilateral lower extremities with other complications Pre and post instruc tions reviewed and provided Related to Varicose veins of bilateral lower extremities with other complications Diet education Related to Body mass index (BMI) 25.0-25.9, adult Lifestyle education Related to B dae mass index (BMI) 25.0-25.9, adult Giving Encouragement to exercise Related to Body mass index (BMI) 25.0-25.9, adult Compression stocking usage as conservative measure Related to Localized edema Pre and post instruc tions reviewed and provided Related to Localized edema Pre and post instruc tions reviewed and provided Related to Varicose veins of left lower extremity with other complications Patient education booklet given Related to Varicose veins of left lower extremity with other complications Lifestyle education Related to B dae mass index (BMI) 25.0-25.9, adult Giving Encouragement to exercise Related to Body mass index (BMI) 25.0-25.9, adult Diet education Related to Body mass index (BMI) 25.0-25.9, adult Assessments Type Assessment Date No Information Patient Care Teams Name Effective Dates (start - stop) Status Members No Information
[2025-08-30 15:13] VITALS: BP 110/70; PULSE 80; TEMP 36.7; O2SAT 97; BMI 27.2
--- NOTE | 2025-08-30 15:13 | AM.OFFWIN_ITS ---
Intake Vital Signs 08/30/25 15:13 Height 5 ft 8 in Weight 179 lb BMI 27.2 BP 110/70 Blood Pressure Location Lt brachial Position Sitting Pulse 80 Pulse Source Pulse Oximeter Temp 98.0 F Temp Source Oral Pulse Oximetry (%) 97 Oxygen Delivery Method Room Air Intake Visit Reasons: eP rt knee pain Intake Note: pt presents with right knee pain and swelling with a lump behind the knee for about a week without injury Patient Tobacco Use Status: Former Tobacco user Allergies sulfamethoxazole (From BACTRIM) Allergy (Intermediate, Verified 08/30/25 15:21) HIVES trimethoprim (From BACTRIM) Allergy (Intermediate, Verified 08/30/25 15:21) HIVES Sulfa (Sulfonamide Antibiotics) Allergy (Unknown, Verified 08/30/25 15:21) rash microbid Allergy (Mild, Uncoded 08/30/25 15:21) Headache Do you need a note to return to daycare/school/sports/work: No HPI HPI Comments History of Present Illness Details History of Present Illness - The patient is a 64 year old female pr esenting for evaluation of right knee pain. - She has experienced intermittent sympt oms for approximately one year, characterized by sensations of stiffness and a small, palpable ball in the back of her right knee, which would typically resolve after a few days. - For the past week and a half, the symp toms have become persistent. - She reports throbbing pain in the post erior aspect of the knee, which is exacerbated by standing and limits her ability to fully flex her knee. - She also notes that her knee frequentl y creaks. - The patient suspects she has a Hidalgo's cyst, as her sister had a similar condition that required drainage, but she has never received a formal diagnosis. - She notes a history of arthritis, is 2 5 pounds overweight, and has another sister with a history of knee replacements. - For self-treatment, she has used aspir in cream, Advil, Epsom salt baths, and heat application, which have provided some tolerability. - She denies trauma or falls. - She denies numbness or tingling. Physical Exam General: Cooperative, healthy appearing, comfortable, no acute distress and well developed Respiratory: Normal respiratory effort and able to speak in complete sentences. Clear to auscultation bilaterally Cardiovascular: Regular rate and rhythm. Normal S1 and S2 Skin: No rashes or lesions noted. Varicose veins noted on the posterior leg. Musculoskeletal: Swelling noted in the back of the right knee. FROM of the right knee. No click noted. No TTP of the patella, medial or lateral condyle, medial or lateral meniscus, or posterior fossa. Negative anterior drawer test. Negative Kary noted. DTR are 1+ on the LE. Negative Homans noted. FROM of the ankle. Ambulates with a steady gait. Strength is 5/5 on the LE bilaterally. Neuro: Sensation is intact on the LE bilaterally. [facility] Medical History Prolapsed uterus Shoulder pain, left Annual physical exam COVID-19 Detached retina, left Surgical History S/P laparoscopic appendectomy (02/01/25) Hx of detached retina repair Hx of vein stripping H/O esophagogastroduodenoscopy H/O colonoscopy Family History Father HTN (hypertension) Cancer Substance use disorder Paternal Grandfather Heart attack Mother Infectious thyroiditis Alzheimer disease Maternal Grandmother Diabetes Brother Substance use disorder Social History Household Members: Children Housing: [facility] Do you presently have visiting nurse or other home services: No Alcohol intake: current Alcohol intake frequency: holidays/special occasions only Alcohol type: beer Patient Tobacco Use Status: Former Tobacco user e-Cigarette/Vaping Use: Never Used Second Hand Smoke Exposure: No Substance Use Type: Marijuana service: No Current occupational status: employed Cognitive needs: No Hearing needs: No Vision needs: Yes Review of Systems Const All systems reviewed & are unremarkable except as noted in HPI and below Physical Exam Vital Signs: Last Vital Signs Temp 98.0 F 08/30/25 15:13 Pulse 80 08/30/25 15:13 BP 110/70 08/30/25 15:13 Pulse Ox 97 08/30/25 15:13 Oxygen Delivery Method Room Air 08/30/25 15:13 BMI result Body Mass Index 27.2 Results Reviewed Results Reviewed: IMPRESSION: No evidence of deep venous thrombosis involving the right lower extremity. 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 Assessment & Plan Assessment & Plan (1) Right knee pain: Code(s): M25.561 - Pain in right knee Qualifiers: Chronicity: acute Qualified Code(s): M25.561 - Pain in right knee (2) Popliteal cyst: Code(s): M71.20 - Synovial cyst of popliteal space [Hidalgo], unspecified knee Qualifiers: Laterality: right Qualified Code(s): M71.21 - Synovial cyst of popliteal space [Hidalgo], right knee Plan Most likely arthritis vs strain vs tendonitis vs Bakers cyst Plan - An ultrasound of the right knee will be obtained to evaluate for a popliteal cyst and to rule out a deep vein thrombosis. - An X-ray of the right knee will be performed to assess for underlying arthritis. - rest, ice and elevation of the knee - wear knee brace for support - tylenol or motrin as needed for pain - follow up with PCP - will refer her to ortho Orders: Orders US venous duplex LE RT Today M25.561 - Pain in right knee Referrals Orthopedics Referral M25.561 - Pain in right knee Medications: New naproxen 500 mg PO Q12H PRN 20 tabs 0RF pain 7 days Coding Level of Care Code Est Pt Level 4 (26798) Diagnoses Acute pain of right knee M25.561 Chronicity: acute Synovial cyst of right popliteal space M71.21 Laterality: right
--- OUTSIDE RECORDS SUMMARY | 2025-08-31 00:39 | XMS_ITS | Clinical Summary ---
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 It is not the complete legal health record.[facility]
== END 2025-08-30 16:25 | disposition home or self-care (01) ==
PROVIDERS: PCP Internal Medicine; Visit Provider Physician Assistant Medical
DX: M25.561 Pain in right knee (principal); M71.21 Synovial cyst of popliteal space [Baker], right knee

== ENCOUNTER 2025-08-30 15:09 | Outpatient (REF) | payer OTHER, SELFPAY ==
--- NOTE | ~2025-08-30 | XR_ITS ---
EXAMINATION: XR KNEE, RIGHT CLINICAL INFORMATION: M25.561 - Pain in right knee COMPARISON: None available. TECHNIQUE: AP oblique and lateral views of the right knee. FINDINGS: Marginal osteophyte formation femoral condyles and tibial plateau. Asymmetric joint space narrowing involving the patellofemoral and medial compartment. No acute fracture or dislocation. No lytic or blastic lesions. Suprapatellar bursa joint effusion, moderate volume. Vascular calcifications. XR/XR knee RT 4V IMPRESSION: Tricompartmental osteoarthrosis/osteoarthritis involving mostly the medial compartment. Suprapatellar bursa joint effusion, moderate volume. Electronically signed by: Gibran Fish MD 08/30/2025 03:51 PM EST
--- NOTE | ~2025-08-30 | US_ITS ---
EXAMINATION: US TRIPLEX LOWER EXTREMITY, RIGHT CLINICAL INFORMATION: M25.561 - Pain in right knee COMPARISON: None available. TECHNIQUE: Color-flow triplex imaging with spectral analysis and compression Doppler were performed on the right lower extremity. FINDINGS: Respiratory variation, normal compression and augmented flow are noted throughout the right lower extremity. The visualized common femoral vein, superficial femoral vein, profunda femoral vein, popliteal vein and midcalf peroneal and posterior tibial venous segments show no evidence of deep venous thrombosis. There is a popliteal fossa cyst measuring 5.7 x 1.7 x 3.7 cm. US/US venous duplex LE RT IMPRESSION: No evidence of deep venous thrombosis involving the right lower extremity. 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 Electronically signed by: Cordell Santana MD 08/30/2025 04:12 PM JIN
== END 2025-08-30 15:10 | disposition home or self-care (01) ==
LOC: HO.HMGCX 15:09
PROVIDERS: PCP Internal Medicine; Visit Provider Physician Assistant Medical
DX: M71.21 Synovial cyst of popliteal space [Baker], right knee (principal); M25.561 Pain in right knee
CPT/HCPCS: 73564; 93971

== ENCOUNTER → 2025-08-30 15:37 | Outpatient (BNV) | payer OTHER, SELFPAY | PROVIDERS: PCP Internal Medicine; Visit Provider Radiology Diagnostic Radiology | DX: M25.561 Pain in right knee (principal); M17.11 Unilateral primary osteoarthritis, right knee; M25.461 Effusion, right knee | CPT/HCPCS: 73564; 93971 ==

== ENCOUNTER 2025-09-22 08:54 | Outpatient (AMB) | payer OTHER, SELFPAY ==
--- NOTE | 2025-09-22 09:00 | A.PHYSOV ---
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 Patient has been referred for right knee pain, hidalgo's cyst. Director Of Digital Technology Required: No Allergies sulfamethoxazole (From BACTRIM) Allergy (Intermediate, Verified 09/22/25 09:01) HIVES trimethoprim (From BACTRIM) Allergy (Intermediate, Verified 09/22/25 09:01) HIVES Sulfa (Sulfonamide Antibiotics) Allergy (Unknown, Verified 09/22/25 09:01) rash microbid Allergy (Mild, Uncoded 08/30/25 15:21) Headache HPI Comments Details: History of Present Illness The patient is a 64 year old female presenting with a Hidalgo's cyst of the right knee. She reports having the cyst for a long time, with it intermittently enlarging and resolving, but the current episode has persisted for the last 3-4 weeks with associated pain and swelling in the right knee. The pain is located all around the knee, including the back where the cyst is, and has started to radiate down her leg. She has a known history of arthritis in the knee, confirmed by a past x-ray, and has noticed cracking sounds from the joint. She has not had prior treatments like cortisone injections or physical therapy for the knee. She was prescribed naproxen but did not fill the prescription due to a sensitive stomach, noting that Advil can cause issues. Her left leg has been chronically more swollen than the right, which she attributes to vein issues. She has not been to a gym in three years but previously used an elliptical. I reviewed the referring provider's no prior to consultation. Pain Description - Location: Pain is reported in the right knee, specifically in the back where the Hidalgo's cyst is located, as well as on the inside and all over the joint. - Radiation: The pain is starting to radiate down the leg from the knee. - Onset and Duration: The patient has had the underlying issue for a long time, but the current painful flare-up has lasted for at least three to four weeks. - Associated Symptoms: The pain is associated with swelling of the knee and crepitus. - Interference with Activities: The pain is present even when she is lying in bed. Results - Imaging: The patient reports a history of a right knee x-ray which showed arthritis. [facility] Medical History Prolapsed uterus Shoulder pain, left Annual physical exam COVID-19 Detached retina, left Surgical History S/P laparoscopic appendectomy (02/01/25) Hx of detached retina repair Hx of vein stripping H/O esophagogastroduodenoscopy H/O colonoscopy Family History Father HTN (hypertension) Cancer Substance use disorder Paternal Grandfather Heart attack Mother Infectious thyroiditis Alzheimer disease Maternal Grandmother Diabetes Brother Substance use disorder Social History Household Members: Children Housing: [facility] Do you presently have visiting nurse or other home services: No Alcohol intake: current Alcohol intake frequency: holidays/special occasions only Alcohol type: beer Patient Tobacco Use Status: Former Tobacco user e-Cigarette/Vaping Use: Never Used Second Hand Smoke Exposure: No Substance Use Type: Marijuana service: No Current occupational status: employed Cognitive needs: No Hearing needs: No Vision needs: Yes Review of Systems Narrative Review of Systems - Musculoskeletal: Reports right knee pain, swelling, and crepitus for the last 3-4 weeks. Reports chronic swelling in the left leg. - Gastrointestinal: Reports sensitivity to NSAIDs such as Advil. Physical Exam Exam Exam: Physical Exam Lumbar Spine: Examination of the lumbar spine, there is no visible swelling or deformity. She is tender to lower lumbar facets. She is otherwise nontender. Full range of motion of her lumbar spine. She denies any increase in pain with facet loading. Special Tests: Lhermittes sign was negative Heel Toe walk is normal Left straight leg raise: Negative Right straight leg raise: Negative Special tests Reyna test is negative Ganslen's test is negative SI Joint compression test negative Jess test negative Piriformis stretch is negative Lower Extremities: Examination of her right knee, she is tender to the medial joint line. Mild popliteal fullness. She has full range of motion of her knee in flexion-extension. Ligaments are intact. Negative Tyler test. Her calf is soft and nontender. Neuro: Sensation: Intact to lower extremities bilaterally Strength L2 (Psoas): 5/5 on the left and 5/5 on the right. L3 (Quads): 5/5 on the left and 5/5 on the right. L4 (Ant tibialis): 5/5 on the left and 5/5 on the right. L5 (EHL) 5/5 on the left and 5/5 on the right. S1 (Gastroc): 5/5 on the left and 5/5 on the right. DTR L4: (Patellar) Left 2 Right 2 S1: (Achilles) Left 2 Right 2 Babinski Downgoing No pathologic clonus. No involuntary movement. Vital Signs: BMI result Body Mass Index 27.2 Office Procedures AMB Knee Injection AMB Knee Injection Procedure Details: Right Knee injection: The risks, benefits and complications of the right knee injection were discussed with the patient including but not limited to increased serum glucose, infection, nerve pain, fat atrophy, pigment augmentation, bleeding and pain. All questions were answered to the patient's satisfaction. Verbal consent was obtained. The patient was eager to proceed. Using aseptic technique with Betadine, ethyl chloride was then used to desensitize the skin. Using a 22-gauge needle 40 mg of Kenalog and 3 mL 2% lidocaine were injected into the knee joint. A Band-Aid was applied. Patient tolerated the procedure well without immediate complication. Postinjection instructions were given. Knee Injection - : Right All charges added?: Procedure code (CPT) selection complete Office Meds Kenalog 40 mg/mL suspension for injection Performing Provider: BERNIE Sears Performing Location: [facility] Administered by: BERNIE Sears on 09/22/25 13:13 Dose Route Admin Location Dispensed Lot Number Expiration Date [facility] Plant Tour Guide 40 mg intra-articular 1 mL [id number] [employer] Total Dispensed Waste 1 mL 0 % lidocaine (PF) 20 mg/mL (2 %) injection solution Performing Provider: BERNIE Sears Performing Location: [facility] Administered by: BERNIE Sears on 09/22/25 13:13 Dose Route Admin Location Dispensed Lot Number Expiration Date [facility] Plant Tour Guide 60 mg intra-articular 5 mL [id number] [facility] Total Dispensed Waste 5 mL 40 % Assessment & Plan Assessment & Plan (1) Osteoarthritis of right knee: Code(s): M17.11 - Unilateral primary osteoarthritis, right knee Category: Medical Qualifiers: Osteoarthritis type: primary Qualified Code(s): M17.11 - Unilateral primary osteoarthritis, right knee Plan Pain Management - Analgesia: The patient was prescribed naproxen but never filled it. She has used topical lidocaine. She reports sensitivity to medications like Advil. - Activities of Daily Living: The patient's pain is present even at rest while lying in bed. Plan Patient was informed and verbally consented to the use of an ambient scribe for clinic note documentation during this visit. 1. Hidalgo's Cyst Of Right Knee The Hidalgo's cyst is a symptom of an underlying issue within the knee, such as arthritis or a meniscus problem, that is creating excess fluid. Draining or surgically removing the cyst is not recommended as it will recur if the underlying problem is not addressed. A cortisone injection into the knee joint is recommended to decrease inflammation and fluid production, which should reduce the cyst's size and associated symptoms for approximately 3-6 months. 2. Osteoarthritis Of Right Knee The patient's osteoarthritis is the primary problem causing fluid production and the resultant Hidalgo's cyst. The plan is to manage the inflammation with an intra-articular cortisone injection. The patient is also encouraged to pursue physical therapy, for which she has an appointment in December, and to engage in low-impact activities such as walking, biking, and swimming. Surgical intervention like a knee replacement is not indicated at this time. Discussion Notes I explained to the patient that the Hidalgo's cyst is a symptom of an underlying problem in her knee, which is likely her known arthritis creating excess fluid. I advised that simply draining the cyst would not be a long-term solution as the fluid would return. I recommended a cortisone injection into the right knee to decrease inflammation and fluid production, which should provide relief for approximately 3 to 6 months. I discussed the risks of the injection, including a small risk of infection, bleeding, or nerve damage. We also discussed the role of physical therapy and low-impact exercises like walking, biking, and swimming to manage her symptoms long-term. The patient consented to proceed with the cortisone injection today. Patient Instructions - The Hidalgo's cyst behind your knee is a symptom of another problem inside your knee, which is arthritis causing extra fluid. - We will give you a cortisone shot in your knee today to reduce the swelling and pain. This should help for about 3 to 6 months. - We do not recommend removing the cyst, because it will just come back if we don't treat the arthritis causing it. - It is a good idea to do low-impact exercises like walking, biking, or swimming. - You should go to your physical therapy appointment in December to work on strengthening the knee. - Risks of the injection are very small but include infection, bleeding, or nerve irritation. Orders: Orders PT Evaluation and Treatment Today M17.11 - Unilateral primary osteoarthritis, right knee AMB Knee Injection Today M17.11 - Unilateral primary osteoarthritis, right knee Coding Level of Care Code New Pt Level 4 (74762) Diagnoses Primary osteoarthritis of right knee M17.11 Osteoarthritis type: primary CPT Codes AMB Knee Injection - Hip/Bursa Injection - : Right ([id number])
[2025-09-22 09:01] VITALS: BMI 27.2
--- OUTSIDE RECORDS SUMMARY | 2025-09-22 09:01 | XMS_ITS | Clinical Summary ---
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 It is not the complete legal health record.[facility]
== END 2025-09-22 09:39 | disposition home or self-care (01) ==
LOC: HO.HPHYS 08:55
PROVIDERS: PCP Internal Medicine; Visit Provider Physician Assistant
DX: M17.11 Unilateral primary osteoarthritis, right knee (principal)
CPT/HCPCS: 20610; 99204

== ENCOUNTER → 2025-09-22 08:54 | Outpatient (BNVA) | payer OTHER, SELFPAY | PROVIDERS: PCP Internal Medicine; Visit Provider Physician Assistant | DX: M17.11 Unilateral primary osteoarthritis, right knee (principal); M71.21 Synovial cyst of popliteal space [Baker], right knee | CPT/HCPCS: 20610; J2003; J3301 ==